=== PATIENT | male | born 1950 | race Caucasian/White ===

== ENCOUNTER 2019-06-30 11:00 | Outpatient (RCR) | payer MEDICARE, SELFPAY | END 2019-07-30 00:01 | LOC: CR 11:00 | PROVIDERS: Family Provider Family Medicine; Referring Provider Internal Medicine Cardiovascular Disease; Visit Provider Family Medicine | DX: Z98.890 Other specified postprocedural states (principal) | CPT/HCPCS: 93798 ×6 ==

== ENCOUNTER 2019-08-07 09:41 | Outpatient (RCR) | payer SELFPAY | END 2019-08-30 23:59 | disposition home or self-care (01) | LOC: CR 09:41 | PROVIDERS: Family Provider Family Medicine; PCP Family Medicine; Referring Provider Internal Medicine Cardiovascular Disease; Visit Provider Internal Medicine Cardiovascular Disease | DX: Z98.890 Other specified postprocedural states (principal) ==

== ENCOUNTER 2020-08-03 14:24 | Outpatient (CLI) | payer MEDICARE, SELFPAY ==
--- NOTE | 2020-08-03 14:33 | USCV_ITS ---
Kobe Gardner Age: 70 Gender: M : 1950 Exam Date: 08/03/2020 15:02 Ordering Phys: Marie Jacobs MD ([email or web address]) Technologist: Rosa Loyola Exam Location: [facility] [place] Indication: bruit Risk Factors: Previous Vascular Surgery: Right Brachial BP: / Left Brachial BP: / Right Left Velocity (cm/s) Spectral Plaque Velocity (cm/s) Spectral Plaque Syst/Diast Broadening Syst/Diast Broadening 94.80/ 11.00 Prox CCA 107.30/ 11.40 77.80/ 16.00 Mid CCA 93.70 / 13.20 68.10/ 16.70 Distal CCA 75.40 / 13.20 90.60/ 16.20 Prox ICA 62.60 / 11.90 90.20/ 20.60 None Mid ICA 90.90 / 21.60 58.70/ 15.80 None Distal ICA 61.80 / 16.40 124.60 ECA 181.80 0.96 ICA/CCA 0.85 Antegrade Vertebral Antegrade 36.60/ 10.10 cm/s 61.40/ 14.00 cm/s Tri Subclavian Tri 223.1 153.3 0 0 FINDINGS Mild to moderate heterogeneous plaques at the bifurcations and proximal no carotid arteries bilaterally Elevated velocity on the right side, suggestive of 16 to 49% gnosis Intimal thickening in the common carotid arteries bilaterally Antegrade flow in the vertebral arteries bilaterally Normal Doppler flow velocities in the external carotid arteries bilaterally CONCLUSIONS Mild to moderate heterogeneous plaques at the bifurcations and proximal internal carotid arteries bilaterally with velocity elevation, consistent with a 16 to 49% gnosis on the right side. Elevated velocity in the external carotid artery on the left side, suggestive of hemodynamically significant stenosis. No previous studies are available for comparison. Dr Marie Jacobs MD [facility] (Electronically Signed) Final Date: 05 August 2020 19:09 S
== END 2020-08-03 14:25 | disposition home or self-care (01) ==
LOC: RAD 14:29
PROVIDERS: PCP Family Medicine; Visit Provider Internal Medicine Cardiovascular Disease
DX: I65.23 Occlusion and stenosis of bilateral carotid arteries (principal)
CPT/HCPCS: 93880

== ENCOUNTER 2020-12-14 11:48 | Inpatient (IN) | payer MEDICARE, SELFPAY ==
[2020-12-14] VITALS (10 sets, daily range): BP systolic 117–158; BP diastolic 64–93; PULSE 61–107; RESP 16–18; TEMP 36.2–38.1; O2SAT 92–99; BMI 23.5
--- NOTE | 2020-12-14 12:13 | XRR_ITS ---
PROCEDURE INFORMATION: Exam: XR Chest Exam date and time: 12/14/2020 1:14 PM Age: 70 years old Clinical indication: Cough and dyspnea; Additional info: Dyspnea/cough TECHNIQUE: Imaging protocol: XR of the chest. Views: 1 view. COMPARISON: CR Chest 1 [place] [id number] 03/20/2019 3:59 PM FINDINGS: Lungs: There is mild fibrosis in the lung bases. There is no pneumonia. Pleural spaces: Unremarkable. No pleural effusion. No pneumothorax. Heart/Mediastinum: Unremarkable. No cardiomegaly. Bones/joints: The patient has undergone thoracic spinal fusion surgery with pedicle screws and rods. There is also a mid sternotomy from coronary bypass surgery. XR/XR chest 1V portable [id number] IMPRESSION: No acute abnormalities are seen in the chest.
--- NOTE | 2020-12-14 12:13 | ECG_ITS ---
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 Measurements Intervals Mize Rate: 89 P: 237 TX: 135 QRS: -1 QRSD: 90 T: 47 QT: 364 QTc: 443 Interpretive Statements ECTOPIC ATRIAL RHYTHM WITH OCCASIONAL SUPRAVENTRICULAR PREMATURE COMPLEXES MINIMAL ST DEPRESSION [0.025+ mV ST DEPRESSION] ABNORMAL RHYTHM ECG Compared to ECG 03/22/2019 05:29:49 Ectopic atrial rhythm now present ST (T wave) deviation now present Sinus bradycardia no longer present First degree AV block no longer present Myocardial infarct finding no longer present T-wave abnormality no longer present Possible ischemia no longer present Electronically Signed On 12-15-2020 0:44:20 CDT by Marie Jacobs M.D. [id number]
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
[2020-12-14 13:09] LABS: Basophils # 0.1 10^3/uL (0.0-0.1); Basophils % 0.3 %; Eosinophils # 0.1 10^3/uL (0.0-0.8); Eosinophils % 0.7 %; Hematocrit 41.8 % (42.0-52.0); Hemoglobin 12.7 g/dL (11.7-16.6); Lymphocytes # 2.3 10^3/uL (0.8-4.8); Lymphocytes % 15.8 %; Mean Corpuscular HGB Conc 30.4 g/dL (30.0-36.0); Mean Corpuscular Hemoglobin 24.4 pg (28.0-34.0); Mean Corpuscular Volume 80.2 fL (80-94); Mean Platelet Volume 9.5 fL (7.4-10.4); Monocytes # 0.7 10^3/uL (0.2-0.9); Monocytes % 5.2 %; Neutrophils # 11.09 10^3/uL (1.8-7.7); Neutrophils % 77.4 %; Nucleated Red Blood Cells % 0 %; Platelet Count 445 10^3/cmm (130-400); Red Blood Count 5.21 10^6/uL (4.1-5.3); Red Cell Distribution Width 14.8 % (12.1-15.1); White Blood Count 14.3 10^3/uL (4.0-10.0)
[2020-12-14] MEDS: vancomycin 1,000 MG in sodium chloride 0.9% 250 ML 250 MG IV (13:10)
[2020-12-14] MEDS: piperacillin-tazobactam 3.375 GM in sodium chloride 0.9% (plus) 50 ML IV ×2 (13:11→21:23)
[2020-12-14] MEDS: iohexol 300 mg/mL 100 mL Btl IV (13:23)
[2020-12-14 13:24] LABS: Lactic Sepsis W/Reflex 3.3 mmol/L (0.5-2.2)
[2020-12-14 13:25] LABS: Alanine Aminotransferase 10 U/L (0-41); Albumin Level 3.5 g/dL (3.5-5.2); Alkaline Phosphatase 91 IU/L (40-130); Anion Gap 16.8 (5-19); Aspartate Amino Transferase 14 U/L (0-40); Blood Urea Nitrogen 7 mg/dL (8-23); Calcium 9.3 mg/dL (8.5-10.5); Carbon Dioxide 29 mmol/L (22-29); Chloride 96 mmol/L (98-107); Creatine Phosphokinase 24 U/L (39-308); Globulin 3.7 g/dL (1.3-4.6); Glomerular Filtration Rate 213.3 mL/min (90-130); Glucose 234 mg/dL (65-115); Magnesium 2.1 mg/dL (1.7-2.3); Osmolality Calculated 290 mOsm/kg (285-295); Potassium 4.8 mmol/L (3.5-5.1); Sodium 137 mmol/L (136-145); Total Bilirubin 0.3 mg/dL (0.15-1.2); Total Protein 7.2 g/dL (6.6-8.7)
[2020-12-14 13:25] LABS: Add Urine Microscopic? YES; Bilirubin Urine Neg (Negative); Blood Urine 3+ (Negative); Glucose Urine UA 4+ (Normal); Ketones Urine Negative (Negative); Leukocyte Esterase Urine 2+ (Negative); Nitrate Urine Negative (Negative); Protein Urine Neg (Negative); Specific Gravity, Urine 1.015 (1.005-1.030); Urine Appearance Cloudy (CLEAR); Urine Color Yellow (Yellow); Urobilinogen Urine 1 mg/dL (Negative); pH Urine 7 (5-7)
[2020-12-14 13:26] LABS: RBC Urine 80-100 /hpf (0-2)
[2020-12-14 13:27] LABS: Amorphous Sediment Urine 1+ /hpf; Bacteria Urine 2+ /hpf; Calcium Oxalate Crystals Urine 0-4 /hpf; Mucus Urine TRACE /hpf; Squamous Epithelial Cell Urine 0-4 /hpf (0-5); WBC Urine 25-40 /hpf (0-5)
[2020-12-14 13:29] LABS: Add Urine Culture? Yes; Coarse Granular Casts Urine 0-4 /lpf
--- NOTE | 2020-12-14 13:36 | CT_ITS ---
WS: [id number] CT ABDOMEN AND PELVIS WITH CONTRAST HISTORY: Abdominal pain. Diabetic ulcer. TECHNIQUE: Imaging performed of the abdomen and pelvis with IV contrast. Single phase imaging of the abdomen. Coronal and sagittal reformats are submitted. All CT scans at [facility] use at least one of these dose optimization techniques: automated exposure control; mA and/or kV adjustment per patient size (includes targeted exams where dose is matched to clinical indication); or iterativ e reconstruction. IV CONTRAST: Omnipaque 300; 95 mL IV. Oral contrast: No DLP: 613.62 mGy-cm. COMPARISON: None available. Lower thorax: Subsegmental atelectasis at the RIGHT lung base. Heart is normal size. Moderate-sized h iatal hernia. Liver/biliary system: Normal size with no intrahepatic dilatation. Gallbladder: Normal. No gallstones or wall thickening. No pericholecystic fluid. Pancreas: Normal size pancreas and pancreatic duct. No adjacent inflammation. Spleen: Top normal size spleen measuring 12.8 cm in length. No mass. Adrenal glands: Normal. Right kidney: Normal size. Very small hypodensities are too small to characterize. No obstruction. Left kidney: No obstruction. Hypodensity in the lower poles probably a cyst. Aorta: Moderate atherosclerosis with no aneurysm. Lymphadenopathy: None. Free fluid: None. GI tract: Mild fecal retention and constipation. No obstruction or wall thickening. Abdominal wall: Intact containing umbilical hernia. Pelvis: Shine catheter in a nondistended urinary bladder. Minimal prominence of the prostate gland. T here is presacral soft tissue thickening which is probably contiguous with the diabetic soft tissue u lcer. There is an ulcer extending over a length of 6.1 cm over the posterior sacrum and coccyx. There is a large soft tissue defect extending towards the CT abdomen coccyx. Soft tissue ulcer abuts the s acrum and coccyx. There is no focal abscess or drainable collection. There is loss of the normal brian ex involving the sacrococcygeal junction. Highly suspicious for area of osteomyelitis. Fusion hardware is noted in the thoracic spine but incompletely visualized. CT/CT abdomen pelvis w con* [id number] IMPRESSION: 1. Large decubitus ulcer centered posterior to the distal sacrum (beginning at the fifth segment) and coccyx. Soft tissue ulceration extends to the distal sa lori and the adjacent coccyx with destruction of the cortex. Suspicious for ost eomyelitis and inflammatory changes extending into the presacral soft tissue. N o discrete abscess identified but these findings are consistent with osteomyeli tis due to the large decubitus ulcer and extension into the presacral space. 2. Shine catheter in a nondistended urinary bladder. 3. No renal obstruction.
[2020-12-14 14:52] LABS: Reflex Lactate Order REFLEX LACTIC ORDERD
[2020-12-14] MEDS: ondansetron 2 mg/ML SDV 2 mL 4 MG IVP (16:50)
[2020-12-14] MEDS: sodium chloride 0.9% 1,000 ML 100 ML IV (16:51)
[2020-12-14] MEDS: morphine 4 mg/mL SDV 1 mL 2 MG IVP (16:51)
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
[2020-12-14 17:25] LABS: Amphetamines Screen Urine Negative (Negative); Barbiturates Screen Urine Negative (Negative); Benzodiazepines Screen Urine Positive (Negative); Cocaine Screen Urine Negative (Negative); Opiate Screen Urine Negative (Negative); PCP Screen Urine Negative (Negative); THC Screen Urine Negative (Negative)
[2020-12-14 18:00] LABS: Potassium, Radom Urine 45 mmol/L; Urine Random Chloride 66 mmol/L; Urine Random Sodium 55 mmol/L
[2020-12-14 18:17] LABS: NT Pro B Type Natriuretic Pept 198 pg/mL (0-125); Procalcitonin 0.13 ng/mL (0-0.5); Thyroid Stimulating Hormone 0.87 uIU/mL (0.27-4.20)
[2020-12-14 18:28] LABS: Iron 18 ug/dL (59-158); Percent Saturation 9.2 % (20-50); Total Iron Binding Capacity 195 mcg/dl; Unsaturated Iron Binding 177 ug/dL (112-347)
[2020-12-14] MEDS: ALPRAZolam 0.25 mg Tablet PO (21:22)
[2020-12-14] MEDS: oxyCODONE-APAP 5-325 mg Tablet 1 TAB PO (21:22)
[2020-12-14] MEDS: heparin 5,000 unit/mL INJ 1 mL 5000 UNIT SUBCUT (21:22)
[2020-12-14] MEDS: gabapentin 300 mg Capsule PO (21:23)
[2020-12-14] MEDS: metoprolol tartrate 25 mg Tablet PO (21:23)
[2020-12-15] VITALS (19 sets, daily range): BP systolic 91–147; BP diastolic 49–75; PULSE 57–87; RESP 10–18; TEMP 36.3–37.3; O2SAT 92–96
[2020-12-15] MEDS: acetaminophen 325 mg Tablet 650 MG PO (00:22)
[2020-12-15] MEDS: vancomycin 1,000 MG in sodium chloride 0.9% 250 ML 250 MG IV ×3 (00:59→21:29)
[2020-12-15] MEDS: sodium chloride 0.9% 1,000 ML 100 ML IV ×2 (03:35→15:15)
[2020-12-15] MEDS: piperacillin-tazobactam 3.375 GM in sodium chloride 0.9% (plus) 50 ML IV ×3 (05:34→23:37)
[2020-12-15] MEDS: heparin 5,000 unit/mL INJ 1 mL 5000 UNIT SUBCUT ×2 (05:34→20:22)
[2020-12-15 05:41] LABS: Basophils # 0.1 10^3/uL (0.0-0.1); Basophils % 0.5 %; Eosinophils # 0.2 10^3/uL (0.0-0.8); Eosinophils % 2.4 %; Hematocrit 34.9 % (42.0-52.0); Hemoglobin 10.7 g/dL (11.7-16.6); Lymphocytes # 2.6 10^3/uL (0.8-4.8); Lymphocytes % 25.4 %; Mean Corpuscular HGB Conc 30.7 g/dL (30.0-36.0); Mean Corpuscular Hemoglobin 24.5 pg (28.0-34.0); Mean Corpuscular Volume 79.9 fL (80-94); Mean Platelet Volume 9.2 fL (7.4-10.4); Monocytes # 0.7 10^3/uL (0.2-0.9); Monocytes % 6.5 %; Neutrophils # 6.52 10^3/uL (1.8-7.7); Neutrophils % 64.7 %; Nucleated Red Blood Cells % 0 %; Platelet Count 369 10^3/cmm (130-400); Red Blood Count 4.37 10^6/uL (4.1-5.3); Red Cell Distribution Width 14.8 % (12.1-15.1); White Blood Count 10.1 10^3/uL (4.0-10.0)
[2020-12-15 05:49] LABS: Estmated Average Glucose 194; Hemoglobin A1C 8.4 % (4.0-6.0)
[2020-12-15 05:58] LABS: C Reactive Protein 133.3 mg/L (0.0-4.9); Chol HDL Ratio 6.42 mg/dL (1.0-5.00); Cholesterol 154 mg/dL (0-200); Creatine Phosphokinase 12 U/L (39-308); Ferritin 266 ng/mL (30-400); HDL Cholesterol 24 mg/dL (60-100); LDL Cholesterol Calculated 97 mg/dL (50-129); Triglycerides 166 mg/dL (0-150); VLDL Cholestrol Calculation 33 mg/dL (0-30)
[2020-12-15 06:00] LABS: Alanine Aminotransferase 9 U/L (0-41); Albumin Level 2.7 g/dL (3.5-5.2); Alkaline Phosphatase 76 IU/L (40-130); Aspartate Amino Transferase 10 U/L (0-40); Blood Urea Nitrogen 5 mg/dL (8-23); Calcium 8.9 mg/dL (8.5-10.5); Carbon Dioxide 31 mmol/L (22-29); Chloride 100 mmol/L (98-107); Globulin 3.4 g/dL (1.3-4.6); Glomerular Filtration Rate 213.3 mL/min (90-130); Glucose 152 mg/dL (65-115); Osmolality Calculated 288 mOsm/kg (285-295); Sodium 139 mmol/L (136-145); Total Bilirubin 0.3 mg/dL (0.15-1.2); Total Protein 6.1 g/dL (6.6-8.7)
[2020-12-15 06:01] LABS: Magnesium 1.7 mg/dL (1.7-2.3); Phosphorus 4.4 mg/dL (2.5-4.5)
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
[2020-12-15] MEDS: gabapentin 300 mg Capsule PO ×2 (08:59→21:29)
[2020-12-15] MEDS: ALPRAZolam 0.25 mg Tablet PO ×2 (08:59→21:29)
[2020-12-15] MEDS: metoprolol tartrate 25 mg Tablet PO ×2 (08:59→21:29)
--- NOTE | 2020-12-15 09:44 | PC.CHAP ---
Pastoral Care Encounter/Spiritual Assessment Type of Contact [] Declined yarn examiner skeins visit [] Patient/Family/Request visit [] Outpatient visit [] Follow-up visit [] Physician referral [] Code/Alert [x] Routine visit [] Staff referral [] Actively dying [] Patient sleeping [] Family support [] [] Out of room [] Palliative care [] [x] Receiving care in room [] Pre-surgical visit [] Trauma [] Long length of stay [] ICU visit [] Other: Relational/Emotional Strength [] Patient feels connected with others/family/visitors/staff [] Distress [] Loneliness/isolation [] Abandonment Spirituality of Patient [] Person of Rosalinda [] Attends Tenriism of their Rosalinda [] Believes in Prayer [] Reads Bible or Episcopal materials [] There are Spiritual issues to be addressed Trip Motor Operator Interventions [] Prayer [] Active listening [] Non-anxious presence [] Spiritual/emotional support [] Crisis/trauma care [] Spiritual counseling [] Bereavement support [] Provided bereavement packet [] Provided Bible/devotional materials [] Provided toy/stuffed animal, coloring book to patient or family member [] Provided Communion [] Anointing/[place] [] Salvation [x] Completed spiritual assessment [] Other: Impact on Illness or Injury [] Angry [] Fearful [] Anxious [] Often cries [] Exhaustion [] Unable to work [] Unable to attend rastafarian [] Unable to walk/stand [] Unable to read [] Unable to drive [] Unable to eat/drink [] Unable to sleep [] Unable to be with family [] Patient intubated [] Other: Summary Time spent with patient
--- NOTE | 2020-12-15 10:26 | PC.NURSE ---
Shift Assessment Assessment done per SPN student. B.Gerry RN
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
[2020-12-15 11:21] LABS: Reticulocyte % 0.8 % (0.5-2.0)
--- NOTE | 2020-12-15 11:25 | PC.RESP ---
pt not in room at this time to perform Assess and treat
--- NOTE | 2020-12-15 11:42 | PM.OP ---
Operative Report Date of procedure: December 15, 2020 Pre-op Diagnosis: Stage IV sacral decubitus ulcer with necrosis/radiologic evidence of possib Post-op diagnosis: same Procedure Done: 1. Sharp debridement of 7.5 x 6.5 cm decubitus ulcer. 2. Sacral/coccyx bone biopsy for culture. Specimens removed/disposition: 1. Aerobic and anaerobic soft tissue wound cultures from sacral decubitus. 2. Sacral bone culture. Surgeon: Moises Javed Anesthesia: MAC Estimated blood loss (mL): 5 Complications: None. Condition: stable Disposition: PACU Procedure: The patient was brought to the operating room and was moved into a left lateral decubitus position onto the operating room table. A monitored anesthetic was induced. The sacral region was prepped and draped in sterile fashion. A combination of 1% lidocaine with 1 100,000 parts epinephrine and 0.5% bupivacaine was used for local anesthesia throughout the procedure. The patient had a sacral decubitus wound measuring 6.5 x 7.5 cm over the sacrum/coccyx. There was some early eschar and necrotic material throughout the wound. The surrounding tissue/skin was somewhat excoriated but clearly viable. Aerobic and anaerobic soft tissue wound cultures were taken. All of the eschar and necrotic material from the wound base was excised using a combination of sharp dissection and cautery. The wound had extended all the way down to the sacrum/coccyx where some of the bone appeared to be a little bit dark at the junction. There was a loose chip of bone in the region was was simply removed with a pair of pickups/rongeurs and was sent for bone culture. The wound was extensively irrigated using the Interpulse irrigation system. Silvadene cream was then introduced into the base of the wound and a dressing consisting of Kerlix was then applied covered by a nonstick disposable undergarment. The patient was taken to the recovery area in stable condition postoperatively.
[2020-12-15] MEDS: silver sulfadiazine cream 1% 50 gm 1 APPLIC TOPICAL (12:02)
--- NOTE | 2020-12-15 12:20 | SUR.PHASEI ---
1204 PATIENT TO MED SURG. NO DISTRESS. DENIES PAIN. DRESSING INTACT TO COCCYX. PATIENT TOLERATING ICE CHIPS.
[2020-12-15] MEDS: pantoprazole DR 40 mg Tablet PO (12:31)
[2020-12-15] MEDS: clopidogrel 75 mg Tablet PO (12:31)
[2020-12-15] MEDS: iron sucrose 200 MG in sodium chloride 0.9% (100 ml) 100 ML 220 MG IV (12:31)
[2020-12-15] MEDS: polyethylene glycol 3350 Pkt 17 gm PO (12:31)
[2020-12-15] MEDS: iron polysaccharide complex 150 mg Capsule PO (12:31)
[2020-12-15 13:09] LABS: Lactic Acid level (Lactate) 1.3 mmol/L (0.5-2.2)
--- NOTE | 2020-12-15 13:15 | ANE.PACU2 ---
Inpatient post-anesthesia follow up: Airway intact: Yes Vital signs: Temperature 97.6 F Pulse Rate [Monito r] 96 Pulse Rate 64 Respiratory Rate 17 Blood Pressure [Ri ght Arm] 146/85 Blood Pressure 113/65 Pulse Oximetry 92 Oxygen Delivery Me thod Room Air Oxygen Flow Rate Fraction of Inspir ed Oxygen Hydration adequate: Yes Nausea and vomiting: No Pain level: 1 Mental status: Baseline
[2020-12-15 13:30] LABS: Vancomycin Trough 7.2 ug/mL (10-15)
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
--- NOTE | 2020-12-15 16:48 | USCV_ITS ---
Kobe Gardner Age: 70 Gender: M : 1950 Exam Date: 12/15/2020 06:04 Ordering Phys: Martin Mccurdy MD Technologist: MONY Exam Location: [facility] [place] Indication: CAD MR BP: 130 / 60 HR: 77 Rhythm: Sinus Technical Quality: Good MEASUREMENTS (Male / Female) Normal Values 2D ECHO LV Diastolic Diameter PLAX 2.5 cm 4.2 - 5.9 / 3.9 - 5.3 cm LV Systolic Diameter PLAX 1.5 cm IVS Diastolic Thickness 1.8 cm 0.6 - 1.0 / 0.6 - 0.9 cm IVS Systolic Thickness 2.1 cm LVPW Diastolic Thickness 2.1 cm 0.6 - 1.0 / 0.6 - 0.9 cm LVPW Systolic Thickness 1.9 cm RV Chamber Size 3.1 cm LVOT Diameter 2.0 cm LV Ejection Fraction 2D Teich 70.8 % LV Ejection Fraction MOD 2C 72.6 % LV Ejection Fraction 2C AL 72.4 % LA Diameter 3.7 cm LA Width 3.2 cm LA Height 5.1 cm RA Width 3.3 cm RA Height 4.9 cm Aorta at Sinotubular Diameter 2.5 cm M-MODE LV Diastolic Diameter MM 5.3 cm 4.2 - 5.9 / 3.9 - 5.3 cm LV Systolic Diameter MM 1.9 cm LV Ejection Fraction MM Teich 91.5 % IVS Diastolic Thickness MM 1.1 cm 0.6 - 1.0 / 0.6 - 0.9 cm IVS Systolic Thickness MM 1.5 cm LVPW Diastolic Thickness MM 0.9 cm 0.6 - 1.0 / 0.6 - 0.9 cm LVPW Systolic Thickness MM 1.1 cm Aortic Annulus Diameter 3.0 cm LA Ao Ratio MM 1.1 MV E Point Septal Separation 0.3 cm DOPPLER AV Peak Velocity 165.0 cm/s LVOT Peak Velocity 104.0 cm/s AV Area Cont Eq vti 2.0 cm squared AV Area Cont Eq pk 2.0 cm squared MV Area PHT 3.7 cm squared Mitral E to A Ratio 0.8 MV E' Velocity 57.5 cm/s Mitral E to MV E' Ratio 12.1 Mitral E to LV E' Lateral Ratio 12.2 Mitral E to LV E' Septal Ratio 12.1 TR Peak Velocity 280.3 cm/s TR Peak Gradient 31.4 mmHg TV Peak E Velocity 71.0 cm/s Right Atrial Pressure 3.0 mmHg Pulmonary Artery Systolic Pressu 34.4 mmHg PV Peak Velocity 128.3 cm/s RV Acceleration Time 0.1 s RV Ejection Time 0.3 s RV AcT/ET 0.3 FINDINGS Left Ventricle Normal left ventricular size and systolic function, EF 71 %. Mild left ventricular hypertrophy. No regional wall motion abnormalities. Grade I/IV diastolic dysfunction (abnormal relaxation filling pattern), normal to mildly elevated filling pressures. Right Ventricle The right ventricle is normal in size and function. Right Atrium The right atrium is normal in size. Left Atrium Mildly increased left atrial size. Mitral Valve Thickened mitral valve. Mild mitral valve regurgitation. Aortic Valve Trace aortic valve regurgitation. Tricuspid Valve Trace tricuspid valve regurgitation. Pulmonic Valve Mild pulmonary valve regurgitation. Pericardium Normal pericardium without effusion. Aorta Plaque seen in the ascending aorta. CONCLUSIONS Normal left ventricular size and systolic function, EF 71 %. Mild left ventricular hypertrophy. No regional wall motion abnormalities. Grade I/IV diastolic dysfunction (abnormal relaxation filling pattern), normal to mildly elevated filling pressures. Mildly increased left atrial size. Thickened mitral valve. Mild mitral valve regurgitation. Trace aortic valve regurgitation. Trace tricuspid valve regurgitation. Mild pulmonary valve regurgitation. Estimated pulmonary artery peak systolic pressure 34 mmHg There is no pericardial effusion. There are no intracardiac masses. Dr Maire Jacobs MD FAC (Electronically Signed) Final Date: 16 Dec 2020 00:21 S
[2020-12-15 18:00] LABS: Glucose Point of Care 208 mg/dL (70-110)
[2020-12-15] MEDS: oxyCODONE-APAP 5-325 mg Tablet 1 TAB PO (18:04)
[2020-12-15 20:25] LABS: Glucose Point of Care 246 mg/dL (70-110)
[2020-12-16] VITALS (8 sets, daily range): BP systolic 107–134; BP diastolic 50–66; PULSE 60–92; RESP 16–20; TEMP 36.6–38; O2SAT 90–97
[2020-12-16] MEDS: heparin 5,000 unit/mL INJ 1 mL 5000 UNIT SUBCUT ×3 (03:47→19:49)
[2020-12-16] MEDS: sodium chloride 0.9% 1,000 ML 100 ML IV (03:47)
[2020-12-16] MEDS: vancomycin 1,000 MG in sodium chloride 0.9% 250 ML 250 MG IV ×3 (05:10→20:49)
[2020-12-16] MEDS: oxyCODONE-APAP 5-325 mg Tablet 1 TAB PO ×2 (06:24→20:45)
[2020-12-16] MEDS: piperacillin-tazobactam 3.375 GM in sodium chloride 0.9% (plus) 50 ML IV ×3 (06:25→22:44)
[2020-12-16 06:45] LABS: Glucose Point of Care 159 mg/dL (70-110)
[2020-12-16 07:34] LABS: Basophils % 0.4 %; Eosinophils # 0.2 10^3/uL (0.0-0.8); Eosinophils % 2.4 %; Hemoglobin 10.6 g/dL (11.7-16.6); Lymphocytes # 2.1 10^3/uL (0.8-4.8); Lymphocytes % 20.3 %; Mean Corpuscular HGB Conc 30.3 g/dL (30.0-36.0); Mean Corpuscular Hemoglobin 24.7 pg (28.0-34.0); Mean Corpuscular Volume 81.4 fL (80-94); Mean Platelet Volume 9.4 fL (7.4-10.4); Monocytes # 0.7 10^3/uL (0.2-0.9); Monocytes % 6.6 %; Neutrophils # 7.04 10^3/uL (1.8-7.7); Neutrophils % 69.8 %; Nucleated Red Blood Cells % 0 %; Platelet Count 321 10^3/cmm (130-400); Red Cell Distribution Width 15.1 % (12.1-15.1); White Blood Count 10.1 10^3/uL (4.0-10.0)
[2020-12-16 07:53] LABS: Alanine Aminotransferase 10 U/L (0-41); Albumin Level 2.5 g/dL (3.5-5.2); Alkaline Phosphatase 77 IU/L (40-130); Anion Gap 11.8 (5-19); Aspartate Amino Transferase 16 U/L (0-40); Blood Urea Nitrogen 4 mg/dL (8-23); Calcium 8.4 mg/dL (8.5-10.5); Carbon Dioxide 28 mmol/L (22-29); Chloride 100 mmol/L (98-107); Globulin 3.5 g/dL (1.3-4.6); Glomerular Filtration Rate 213.3 mL/min (90-130); Glucose 208 mg/dL (65-115); Osmolality Calculated 285 mOsm/kg (285-295); Potassium 3.8 mmol/L (3.5-5.1); Sodium 136 mmol/L (136-145); Total Bilirubin 0.3 mg/dL (0.15-1.2)
[2020-12-16] MEDS: iron polysaccharide complex 150 mg Capsule PO (08:30)
[2020-12-16] MEDS: ALPRAZolam 0.25 mg Tablet PO ×2 (08:30→20:44)
[2020-12-16] MEDS: polyethylene glycol 3350 Pkt 17 gm PO (08:30)
[2020-12-16] MEDS: clopidogrel 75 mg Tablet PO (08:30)
[2020-12-16] MEDS: metoprolol tartrate 25 mg Tablet PO ×2 (08:30→20:44)
[2020-12-16] MEDS: gabapentin 300 mg Capsule PO ×3 (08:30→20:44)
[2020-12-16] MEDS: pantoprazole DR 40 mg Tablet PO (08:31)
--- NOTE | 2020-12-16 08:36 | P.PN_ITS ---
Subjective Subjective: Interval history: The patient seems to be in better spirits this morning. He says he feels well. He only has a little bit of pain at the sacral area every once in a while. Vitals/I&O/Wt Last Vital Signs Temp 98.3 F 12/16/20 08:00 Pulse 64 12/16/20 08:00 Resp 18 12/16/20 08:00 BP 115/50 12/16/20 08:00 Pulse Ox 94 12/16/20 08:00 12/15/20 12/16/20 12/16/20 22:59 06:59 14:59 Intake Total 870 / 3440 1300 / 3440 Output Total 1000 / 2375 1375 / 2375 Balance -130 / 1065 -75 / 1065 Weight last 48 hrs Weight 157 lb 14.4 oz Weight 160 lb Weight 150 lb Physical Exam Narrative: EXAM NARRATIVE: Dressing was just recently changed by nursing; we discussed findings. The wound has been draining some serous fluid. Urinary Catheter Management^: Shine: Cath Placed During This Visit: yes Reason for Continuing Indwelling Catheter: Accurate Measurement of Urinary Output in Critically Ill Patients Urinary Catheter Date of Insertion: 12/14/20 Urinary Catheter Time of Insertion: 13:04 Data : 12/16/20 07:22 12/16/20 07:22 Micro: Microbiology 12/14/20 16:20 Blood Culture - Preliminary Blood 12/15/20 12:52 Gram Stain - Final Other Source 12/15/20 11:30 Gram Stain - Final Other Source 12/14/20 19:13 MRSA Culture - Final Nose 12/14/20 12:45 Blood Culture - Preliminary Blood NEGATIVE TO DATE 12/14/20 13:00 Urine Culture - Preliminary Urine Catheterized Staphylococcus aureus As of 12/16/2020: Blood cultures seem to show a combination of probable Staphylococcus and Streptococcus. Tissue culture Gram stain show gram-negative rods and probable Streptococcus. Bone culture Gram stain shows probable Streptococcus. A&P Assessment and plan (1) Decubitus ulcer of back, stage 4: Status post surgical debridement tissue and bone cultures on 12/15/2020. Continue daily wound care. If the patient cannot get adequate home health arranged (he says he has had only one visit from [facility] since leaving [facility] ago), then I would recommend he follow-up with the [facility] wound clinic for further care. Status: Acute (2) Osteomyelitis: Radiographic evidence of osteomyelitis. Bone culture results as above. Status: Acute Attestations Medical Necessity Statement*: See admitting service's notation. Coding Level of Care Code Acute Gis Software Developer for Michaela Bradshaw Diagnoses Decubitus ulcer of back, stage 4 L89.104 Osteomyelitis M86.9
--- NOTE | 2020-12-16 12:04 | PC.NURSE ---
BM Manually stimulated with a small BM as charted
[2020-12-16 12:05] LABS: Glucose Point of Care 277 mg/dL (70-110)
--- NOTE | 2020-12-16 12:06 | PC.NURSE ---
Lamine lift Patient up in lamine lift to [facility] [place] for BM (assistance of 4 people) Patient tolerated well Patient back to per lamine lift and resting comfortably with 2 side rails up and call light in reach
[2020-12-16] MEDS: silver sulfadiazine cream 1% 50 gm 1 APPLIC TOPICAL (12:32)
[2020-12-16] MEDS: iron sucrose 200 MG in sodium chloride 0.9% (100 ml) 100 ML 220 MG IV (12:33)
[2020-12-16 12:47] LABS: Vancomycin Trough 10.3 ug/mL (10-15)
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
[2020-12-16 16:40] LABS: Glucose Point of Care 184 mg/dL (70-110)
[2020-12-16 21:41] LABS: Glucose Point of Care 247 mg/dL (70-110)
[2020-12-17] VITALS (13 sets, daily range): BP systolic 115–169; BP diastolic 55–80; PULSE 65–84; RESP 12–20; TEMP 36.7–37.2; O2SAT 92–98
[2020-12-17] MEDS: heparin 5,000 unit/mL INJ 1 mL 5000 UNIT SUBCUT ×3 (04:44→20:23)
[2020-12-17] MEDS: vancomycin 1,000 MG in sodium chloride 0.9% 250 ML 250 MG IV ×3 (04:48→20:23)
[2020-12-17 05:45] LABS: Vancomycin Trough 21.1 ug/mL (10-15)
[2020-12-17 06:41] LABS: Glucose Point of Care 159 mg/dL (70-110)
[2020-12-17] MEDS: piperacillin-tazobactam 3.375 GM in sodium chloride 0.9% (plus) 50 ML IV ×3 (07:42→23:25)
[2020-12-17] MEDS: polyethylene glycol 3350 Pkt 17 gm PO (09:21)
[2020-12-17] MEDS: silver sulfadiazine cream 1% 50 gm 1 APPLIC TOPICAL (09:21)
[2020-12-17] MEDS: clopidogrel 75 mg Tablet PO (09:22)
[2020-12-17] MEDS: iron polysaccharide complex 150 mg Capsule PO (09:22)
[2020-12-17] MEDS: metoprolol tartrate 25 mg Tablet PO ×2 (09:22→20:22)
[2020-12-17] MEDS: pantoprazole DR 40 mg Tablet PO (09:22)
[2020-12-17] MEDS: gabapentin 300 mg Capsule PO ×3 (09:22→20:22)
[2020-12-17] MEDS: ALPRAZolam 0.25 mg Tablet PO ×2 (09:22→20:23)
--- NOTE | 2020-12-17 10:10 | PC.SOCIAL ---
Pg 2 IMM. Explained to pt Pg 2 IMM. No questions voiced. Provided pt a copy. Signed, dated, & timed a copy & placed in chart.
--- NOTE | 2020-12-17 11:08 | PC.PHAR ---
Vancomycin trough 12/17 not true value lab drawn shortly after administration so value is most likely inflated. infusion was stopped but resumed ~0600 12/17. redraw level before next dose if administered.
[2020-12-17 11:42] LABS: Glucose Point of Care 324 mg/dL (70-110)
[2020-12-17] MEDS: oxyCODONE-APAP 5-325 mg Tablet 1 TAB PO ×2 (11:56→20:22)
[2020-12-17] MEDS: iron sucrose 200 MG in sodium chloride 0.9% (100 ml) 100 ML 220 MG IV (14:13)
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
[2020-12-17 17:20] LABS: Glucose Point of Care 227 mg/dL (70-110)
[2020-12-17 20:42] LABS: Glucose Point of Care 257 mg/dL (70-110)
[2020-12-17] MEDS: insulin glargine 100 units/1 mL 10 UNIT SUBCUT (20:57)
[2020-12-17 21:49] LABS: Vancomycin Trough 39.9 ug/mL (10-15)
--- NOTE | 2020-12-17 22:52 | PC.PHAR ---
Vancomycin trough was drawn on 12/17/20 @2100, Vancomycin was infusing at 2022. Resulted in a critical trough of 39.9. Talked to Breana and she will make sure labs draws at 0400 and not hang dose 0500 until it has come back.
[2020-12-18] VITALS (7 sets, daily range): BP systolic 119–168; BP diastolic 57–77; PULSE 59–91; RESP 16–19; TEMP 36.1–37; O2SAT 92–98
[2020-12-18 04:56] LABS: Basophils % 0.4 %; Eosinophils # 0.3 10^3/uL (0.0-0.8); Eosinophils % 3.7 %; Hematocrit 35.2 % (42.0-52.0); Hemoglobin 10.5 g/dL (11.7-16.6); Lymphocytes # 2.2 10^3/uL (0.8-4.8); Lymphocytes % 25.9 %; Mean Corpuscular HGB Conc 29.8 g/dL (30.0-36.0); Mean Corpuscular Hemoglobin 23.9 pg (28.0-34.0); Mean Platelet Volume 9.7 fL (7.4-10.4); Monocytes # 0.6 10^3/uL (0.2-0.9); Monocytes % 6.5 %; Neutrophils # 5.31 10^3/uL (1.8-7.7); Neutrophils % 62.9 %; Nucleated Red Blood Cells % 0 %; Platelet Count 351 10^3/cmm (130-400); Red Cell Distribution Width 14.9 % (12.1-15.1); White Blood Count 8.4 10^3/uL (4.0-10.0)
[2020-12-18] MEDS: heparin 5,000 unit/mL INJ 1 mL 5000 UNIT SUBCUT ×3 (04:57→20:13)
[2020-12-18 05:12] LABS: Alanine Aminotransferase 12 U/L (0-41); Albumin Level 2.6 g/dL (3.5-5.2); Alkaline Phosphatase 76 IU/L (40-130); Anion Gap 12.4 (5-19); Aspartate Amino Transferase 15 U/L (0-40); Blood Urea Nitrogen 5 mg/dL (8-23); Calcium 8.9 mg/dL (8.5-10.5); Carbon Dioxide 28 mmol/L (22-29); Chloride 103 mmol/L (98-107); Globulin 3.5 g/dL (1.3-4.6); Glomerular Filtration Rate 213.3 mL/min (90-130); Glucose 127 mg/dL (65-115); Osmolality Calculated 287 mOsm/kg (285-295); Potassium 4.4 mmol/L (3.5-5.1); Sodium 139 mmol/L (136-145); Total Bilirubin 0.2 mg/dL (0.15-1.2); Total Protein 6.1 g/dL (6.6-8.7)
[2020-12-18 05:34] LABS: Vancomycin Trough 15.3 ug/mL (10-15)
[2020-12-18] MEDS: vancomycin 1,000 MG in sodium chloride 0.9% 250 ML 250 MG IV ×2 (05:44→13:24)
[2020-12-18 06:25] LABS: Glucose Point of Care 145 mg/dL (70-110)
[2020-12-18] MEDS: piperacillin-tazobactam 3.375 GM in sodium chloride 0.9% (plus) 50 ML IV ×3 (08:05→22:56)
[2020-12-18] MEDS: polyethylene glycol 3350 Pkt 17 gm PO (08:12)
[2020-12-18] MEDS: clopidogrel 75 mg Tablet PO (08:12)
[2020-12-18] MEDS: pantoprazole DR 40 mg Tablet PO (08:12)
[2020-12-18] MEDS: gabapentin 300 mg Capsule PO ×3 (08:12→20:13)
[2020-12-18] MEDS: ALPRAZolam 0.25 mg Tablet PO ×2 (08:12→20:13)
[2020-12-18] MEDS: iron polysaccharide complex 150 mg Capsule PO (08:13)
[2020-12-18] MEDS: metoprolol tartrate 25 mg Tablet PO ×2 (08:17→20:13)
[2020-12-18] MEDS: amlodipine 10 mg Tablet PO (08:17)
[2020-12-18] MEDS: oxyCODONE-APAP 5-325 mg Tablet 1 TAB PO ×2 (08:19→18:21)
[2020-12-18] MEDS: silver sulfadiazine cream 1% 50 gm 1 APPLIC TOPICAL (11:56)
[2020-12-18 12:18] LABS: Glucose Point of Care 214 mg/dL (70-110)
--- NOTE | 2020-12-18 12:37 | PC.CHAP ---
Pastoral Care Encounter/Spiritual Assessment Type of Contact [] Declined clubhouse attendant visit [] Patient/Family/Request visit [] Outpatient visit [] Follow-up visit [] Physician referral [] Code/Alert [] Routine visit [] Staff referral [] Actively dying [] Patient sleeping [] Family support [] [] Out of room [] Palliative care [] [xxx] Receiving care in room [] Pre-surgical visit [] Trauma [] Long length of stay [] ICU visit [] Other: Relational/Emotional Strength [] Patient feels connected with others/family/visitors/staff [] Distress [] Loneliness/isolation [] Abandonment Spirituality of Patient [] Person of Rosalinda [] Attends Congregational of their Rosalinda [] Believes in Prayer [] Reads Bible or Synagogue materials [] There are Spiritual issues to be addressed Wool Puller Interventions [] Prayer [] Active listening [] Non-anxious presence [] Spiritual/emotional support [] Crisis/trauma care [] Spiritual counseling [] Bereavement support [] Provided bereavement packet [] Provided Bible/devotional materials [] Provided toy/stuffed animal, coloring book to patient or family member [] Provided Communion [] Anointing/[place] [] Salvation [] Completed spiritual assessment [] Other: Impact on Illness or Injury [] Angry [] Fearful [] Anxious [] Often cries [] Exhaustion [] Unable to work [] Unable to attend temple [] Unable to walk/stand [] Unable to read [] Unable to drive [] Unable to eat/drink [] Unable to sleep [] Unable to be with family [] Patient intubated [] Other: Summary Follow up needed Med staff busy with patient and will be for lengthy time. Time spent with patient
[2020-12-18] MEDS: iron sucrose 200 MG in sodium chloride 0.9% (100 ml) 100 ML 220 MG IV (12:44)
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
--- NOTE | 2020-12-18 15:03 | XR_ITS ---
WS: [id number] Portable AP supine chest, 12/18/2020 Clinical Data: picc line placement Comparison: Portable chest, 12/14/2020. Findings: The right PICC line ends in the superior vena cava near the cavoatrial junction. No pneumot horax is seen. There is minimal left basilar atelectasis. XR/XR chest 1V portable [id number] Impression: Satisfactory insertion of right PICC line.
[2020-12-18 17:41] LABS: Glucose Point of Care 247 mg/dL (70-110)
[2020-12-18 20:54] LABS: Glucose Point of Care 258 mg/dL (70-110)
[2020-12-18] MEDS: insulin glargine 100 units/1 mL 10 UNIT SUBCUT (21:41)
[2020-12-19] VITALS (10 sets, daily range): BP systolic 118–162; BP diastolic 62–76; PULSE 72–103; RESP 16–20; TEMP 36.4–39.4; O2SAT 92–97
[2020-12-19] MEDS: heparin 5,000 unit/mL INJ 1 mL 5000 UNIT SUBCUT ×3 (03:42→20:36)
[2020-12-19] MEDS: acetaminophen 325 mg Tablet 650 MG PO (04:13)
--- NOTE | 2020-12-19 04:15 | PC.NURSE ---
fever STONE DERRICKMAN AND RIGGER reported to this nurse temp was 103.0, tylenol given, will recheck
--- NOTE | 2020-12-19 04:47 | PC.NURSE ---
shift summary Patient had good night, no complaints of pain, slept through the night. Patient did have a temp of 103.0 at 4:00, tyelnol given. Will recheck in one hour.
--- NOTE | 2020-12-19 05:33 | PC.NURSE ---
Temp. rechecked Temp was 103.0 it is now 99.5
[2020-12-19] MEDS: piperacillin-tazobactam 3.375 GM in sodium chloride 0.9% (plus) 50 ML IV ×3 (06:19→23:23)
[2020-12-19 06:22] LABS: Glucose Point of Care 235 mg/dL (70-110)
[2020-12-19] MEDS: iron polysaccharide complex 150 mg Capsule PO (08:33)
[2020-12-19] MEDS: metoprolol tartrate 25 mg Tablet PO ×2 (08:33→20:36)
[2020-12-19] MEDS: amlodipine 10 mg Tablet PO (08:35)
[2020-12-19] MEDS: ALPRAZolam 0.25 mg Tablet PO ×2 (08:35→20:36)
[2020-12-19] MEDS: gabapentin 300 mg Capsule PO ×3 (08:35→20:36)
[2020-12-19] MEDS: pantoprazole DR 40 mg Tablet PO (08:35)
[2020-12-19] MEDS: clopidogrel 75 mg Tablet PO (08:35)
[2020-12-19] MEDS: polyethylene glycol 3350 Pkt 17 gm PO (08:36)
[2020-12-19 08:55] LABS: Basophils % 0.2 %; Eosinophils # 0.1 10^3/uL (0.0-0.8); Eosinophils % 0.5 %; Hematocrit 36.2 % (42.0-52.0); Hemoglobin 11.2 g/dL (11.7-16.6); Lymphocytes % 11.8 %; Mean Corpuscular HGB Conc 30.9 g/dL (30.0-36.0); Mean Corpuscular Hemoglobin 24.7 pg (28.0-34.0); Mean Corpuscular Volume 79.7 fL (80-94); Mean Platelet Volume 9.4 fL (7.4-10.4); Monocytes % 6.1 %; Neutrophils # 13.33 10^3/uL (1.8-7.7); Neutrophils % 80.6 %; Nucleated Red Blood Cells % 0 %; Platelet Count 426 10^3/cmm (130-400); Red Blood Count 4.54 10^6/uL (4.1-5.3); Red Cell Distribution Width 15.6 % (12.1-15.1); White Blood Count 16.5 10^3/uL (4.0-10.0)
[2020-12-19 09:14] LABS: Alanine Aminotransferase 14 U/L (0-41); Alkaline Phosphatase 88 IU/L (40-130); Anion Gap 17.6 (5-19); Aspartate Amino Transferase 16 U/L (0-40); Blood Urea Nitrogen 15 mg/dL (8-23); Calcium 9.4 mg/dL (8.5-10.5); Carbon Dioxide 24 mmol/L (22-29); Chloride 97 mmol/L (98-107); Globulin 3.2 g/dL (1.3-4.6); Glucose 223 mg/dL (65-115); Osmolality Calculated 286 mOsm/kg (285-295); Potassium 4.6 mmol/L (3.5-5.1); Sodium 134 mmol/L (136-145); Total Bilirubin 0.3 mg/dL (0.15-1.2); Total Protein 6.2 g/dL (6.6-8.7)
[2020-12-19 09:19] LABS: Procalcitonin 0.66 ng/mL (0-0.5)
--- NOTE | 2020-12-19 09:26 | PC.SOCIAL ---
IMM Updated. Updated pt on Pg 2 IMM. No questions voiced. Provided pt a copy. Signed, dated, & timed copy in chart.
[2020-12-19] MEDS: Fleet Enema 133 mL Enema PR (11:04)
[2020-12-19] MEDS: silver sulfadiazine cream 1% 50 gm 1 APPLIC TOPICAL (11:10)
--- NOTE | 2020-12-19 11:41 | XRR_ITS ---
PROCEDURE INFORMATION: Exam: XR Chest Exam date and time: 12/19/2020 11:41 AM Age: 70 years old Clinical indication: Fever TECHNIQUE: Imaging protocol: XR of the chest. Views: 1 view. COMPARISON: MT XR chest 1V portable [id number] 12/18/2020 3:14 PM FINDINGS: Tubes, catheters and devices: PICC line from the right. Tip extend centrally although not visualized secondary to the Valadez tuan and pedicle screws. Lungs: Mild airspace disease within the left lung base. Pleural spaces: Unremarkable. No pleural effusion. No pneumothorax. Heart/Mediastinum: Unremarkable. No cardiomegaly. Bones/joints: prior sternotomy. XR/XR chest 1V portable [id number] IMPRESSION: Mild airspace disease within the left lung base.
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
[2020-12-19] MEDS: vancomycin 1,000 MG in sodium chloride 0.9% 250 ML 250 MG IV (11:47)
[2020-12-19 11:49] LABS: Glucose Point of Care 206 mg/dL (70-110)
[2020-12-19] MEDS: oxyCODONE-APAP 5-325 mg Tablet 1 TAB PO (12:53)
[2020-12-19] MEDS: iron sucrose 200 MG in sodium chloride 0.9% (100 ml) 100 ML 220 MG IV (14:10)
[2020-12-19] MEDS: magnesium hydroxide 30 mL UDC PO (16:11)
[2020-12-19] MEDS: bisacodyl 5 mg Tablet 10 MG PO (16:12)
--- NOTE | 2020-12-19 16:16 | PC.NURSE ---
Verbal order receive from Dr. Mccurdy given to remove Shine cath and allow patient to straight Cath as he does this at home.
[2020-12-19 16:52] LABS: Glucose Point of Care 183 mg/dL (70-110)
--- NOTE | 2020-12-19 18:39 | PC.NURSE ---
Straight Cath patient at this time with 500mls of dark yellow urine drained.
--- NOTE | 2020-12-19 18:55 | PC.NURSE ---
Report to Ursula NAPOLES at this time.
[2020-12-19 20:08] LABS: Glucose Point of Care 165 mg/dL (70-110)
[2020-12-19] MEDS: insulin glargine 100 units/1 mL 10 UNIT SUBCUT (20:36)
[2020-12-20] VITALS (11 sets, daily range): BP systolic 100–134; BP diastolic 55–68; PULSE 63–100; RESP 16–18; TEMP 36.4–38.4; O2SAT 90–95
[2020-12-20] MEDS: vancomycin 1,000 MG in sodium chloride 0.9% 250 ML 250 MG IV ×2 (04:32→22:05)
[2020-12-20] MEDS: heparin 5,000 unit/mL INJ 1 mL 5000 UNIT SUBCUT ×3 (04:38→20:17)
--- NOTE | 2020-12-20 05:20 | PC.NURSE ---
shift summary Patient slept most of the night. Did straight cath at 2300, had an output of 1425ml. Doctor notified see physicians notification for details. Patient had temp of 99.8 at midnight, temp was 97.5 at 400. Placed draper cath at
[2020-12-20] MEDS: piperacillin-tazobactam 3.375 GM in sodium chloride 0.9% (plus) 50 ML IV ×3 (06:04→23:55)
[2020-12-20 06:05] LABS: Glucose Point of Care 152 mg/dL (70-110)
--- NOTE | 2020-12-20 09:19 | P.PN_ITS ---
Subjective Subjective: Interval history: The patient is doing well. He is anxious to try to get out of the hospital. Nursing apparently changed his dressing last night and he reports states that everything looked good. Vitals/I&O/Wt Last Vital Signs Temp 97.6 F 12/20/20 07:56 Pulse 83 12/20/20 08:40 Resp 18 12/20/20 08:40 BP 130/68 12/20/20 07:56 Pulse Ox 92 12/20/20 08:40 12/19/20 12/20/20 12/20/20 22:59 06:59 14:59 Intake Total 480 / 1560 420 / 1560 Output Total 500 / 1450 950 / 1450 Balance -20 / 110 -530 / 110 Weight last 48 hrs Weight 160 lb 1.6 oz Weight 166 lb 4.8 oz Physical Exam Narrative: EXAM NARRATIVE: As above. I am not going to undo his entire dressing this morning. Urinary Catheter Management^: Shine: Cath Placed During This Visit: yes, but has since been removed by the nurse Reason for Continuing Indwelling Catheter: Assist Healing of Perineal & Sacral Wounds- Incontinent Patients Urinary Catheter Date of Insertion: 12/20/20 Urinary Catheter Time of Insertion: 04:07 Date Urinary Catheter Removed: 12/19/20 Time Urinary Catheter Discontinued: 14:00 Data : 12/19/20 08:21 12/19/20 08:21 Micro: Microbiology 12/16/20 19:30 Gram Stain - Final Sputum - Expectorated Sputum Sputum Culture - Final 12/19/20 08:32 Blood Culture - Preliminary Blood NEGATIVE TO DATE 12/19/20 08:21 Blood Culture - Preliminary Blood NEGATIVE TO DATE 12/14/20 16:20 Blood Culture - Final Blood Strep anginosus group 12/15/20 11:30 Gram Stain - Final Other Source Anaerobic Culture - Preliminary Wound Culture - Final Pseudomonas aeruginosa Klebsiella pneumoniae Enterococcus faecalis 12/14/20 12:45 Blood Culture - Final Blood NO GROWTH AFTER 5 DAYS A&P Assessment and plan (1) Decubitus ulcer of back, stage 4: Status post surgical debridement tissue and bone cultures on 12/15/2020. Likely close to discharge. PICC line. Continue daily wound care. If the patient cannot get adequate home health arranged (he says he has had only one visit from [facility] since leaving [facility] 3 weeks prior to this admission), then I will recommend he follow-up with the [facility] wound clinic for further continuing care. Status: Acute (2) Osteomyelitis: Radiographic/culture evidence of osteomyelitis. Status: Acute Attestations Medical Necessity Statement*: See admitting service's notation. Coding Level of Care Code Acute Oyster Shucker for Michaela Bradshaw Diagnoses Decubitus ulcer of back, stage 4 L89.104 Osteomyelitis M86.9
[2020-12-20] MEDS: gabapentin 300 mg Capsule PO ×3 (09:42→20:17)
[2020-12-20] MEDS: pantoprazole DR 40 mg Tablet PO (09:42)
[2020-12-20] MEDS: ALPRAZolam 0.25 mg Tablet PO ×2 (09:42→20:17)
[2020-12-20] MEDS: iron polysaccharide complex 150 mg Capsule PO (09:42)
[2020-12-20] MEDS: amlodipine 10 mg Tablet PO (09:43)
[2020-12-20] MEDS: metoprolol tartrate 25 mg Tablet PO ×2 (09:43→20:17)
[2020-12-20] MEDS: clopidogrel 75 mg Tablet PO (09:43)
[2020-12-20] MEDS: polyethylene glycol 3350 Pkt 17 gm PO (09:43)
[2020-12-20] MEDS: bisacodyl 5 mg Tablet 10 MG PO (09:43)
[2020-12-20] MEDS: oxyCODONE-APAP 5-325 mg Tablet 1 TAB PO ×2 (10:17→15:49)
[2020-12-20 11:15] LABS: Glucose Point of Care 261 mg/dL (70-110)
[2020-12-20] MEDS: silver sulfadiazine cream 1% 50 gm 1 APPLIC TOPICAL (11:59)
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
[2020-12-20 19:10] LABS: Glucose Point of Care 116 mg/dL (70-110)
[2020-12-20 20:06] LABS: Basophils % 0.3 %; Eosinophils # 0.2 10^3/uL (0.0-0.8); Hematocrit 31.5 % (42.0-52.0); Hemoglobin 9.5 g/dL (11.7-16.6); Lymphocytes # 1.4 10^3/uL (0.8-4.8); Mean Corpuscular HGB Conc 30.2 g/dL (30.0-36.0); Mean Corpuscular Volume 79.5 fL (80-94); Mean Platelet Volume 9.7 fL (7.4-10.4); Monocytes # 0.7 10^3/uL (0.2-0.9); Monocytes % 5.7 %; Neutrophils # 9.31 10^3/uL (1.8-7.7); Neutrophils % 79.4 %; Nucleated Red Blood Cells % 0 %; Platelet Count 341 10^3/cmm (130-400); Red Blood Count 3.96 10^6/uL (4.1-5.3); White Blood Count 11.7 10^3/uL (4.0-10.0)
[2020-12-20] MEDS: acetaminophen 325 mg Tablet 650 MG PO (20:18)
[2020-12-20 20:19] LABS: Alanine Aminotransferase 13 U/L (0-41); Albumin Level 2.7 g/dL (3.5-5.2); Alkaline Phosphatase 77 IU/L (40-130); Anion Gap 16.8 (5-19); Aspartate Amino Transferase 15 U/L (0-40); Blood Urea Nitrogen 7 mg/dL (8-23); Calcium 8.5 mg/dL (8.5-10.5); Carbon Dioxide 25 mmol/L (22-29); Chloride 98 mmol/L (98-107); Globulin 2.9 g/dL (1.3-4.6); Glomerular Filtration Rate 213.3 mL/min (90-130); Glucose 197 mg/dL (65-115); Osmolality Calculated 285 mOsm/kg (285-295); Potassium 3.8 mmol/L (3.5-5.1); Sodium 136 mmol/L (136-145); Total Bilirubin 0.3 mg/dL (0.15-1.2); Total Protein 5.6 g/dL (6.6-8.7)
[2020-12-20 20:24] LABS: Procalcitonin 0.21 ng/mL (0-0.5)
[2020-12-20 20:33] LABS: Glucose Point of Care 225 mg/dL (70-110)
[2020-12-20 21:42] LABS: Vancomycin Trough 9.1 ug/mL (10-15)
[2020-12-20] MEDS: insulin glargine 100 units/1 mL 10 UNIT SUBCUT (22:07)
[2020-12-21] VITALS (10 sets, daily range): BP systolic 131–154; BP diastolic 67–73; PULSE 65–88; RESP 16–18; TEMP 36.7–37.8; O2SAT 92–95; BMI 24.5
[2020-12-21] MEDS: heparin 5,000 unit/mL INJ 1 mL 5000 UNIT SUBCUT ×3 (03:18→19:27)
[2020-12-21 05:01] LABS: Basophils % 0.3 %; Eosinophils # 0.4 10^3/uL (0.0-0.8); Eosinophils % 3.7 %; Hematocrit 32.3 % (42.0-52.0); Hemoglobin 9.7 g/dL (11.7-16.6); Lymphocytes # 2.2 10^3/uL (0.8-4.8); Lymphocytes % 22.9 %; Mean Corpuscular Hemoglobin 24.6 pg (28.0-34.0); Mean Corpuscular Volume 81.8 fL (80-94); Mean Platelet Volume 9.7 fL (7.4-10.4); Monocytes # 0.6 10^3/uL (0.2-0.9); Neutrophils % 66.2 %; Nucleated Red Blood Cells % 0 %; Platelet Count 378 10^3/cmm (130-400); Red Blood Count 3.95 10^6/uL (4.1-5.3); Red Cell Distribution Width 16.4 % (12.1-15.1); White Blood Count 9.7 10^3/uL (4.0-10.0)
[2020-12-21 05:19] LABS: Alanine Aminotransferase 12 U/L (0-41); Albumin Level 2.4 g/dL (3.5-5.2); Alkaline Phosphatase 74 IU/L (40-130); Anion Gap 12.4 (5-19); Aspartate Amino Transferase 13 U/L (0-40); Blood Urea Nitrogen 6 mg/dL (8-23); Calcium 8.7 mg/dL (8.5-10.5); Carbon Dioxide 28 mmol/L (22-29); Chloride 105 mmol/L (98-107); Globulin 3.1 g/dL (1.3-4.6); Glomerular Filtration Rate 297.3 mL/min (90-130); Glucose 106 mg/dL (65-115); Osmolality Calculated 292 mOsm/kg (285-295); Potassium 3.4 mmol/L (3.5-5.1); Sodium 142 mmol/L (136-145); Total Bilirubin 0.3 mg/dL (0.15-1.2); Total Protein 5.5 g/dL (6.6-8.7)
--- NOTE | 2020-12-21 06:29 | PC.NURSE ---
came out around the rectal tube
[2020-12-21 06:43] LABS: Glucose Point of Care 128 mg/dL (70-110)
[2020-12-21] MEDS: piperacillin-tazobactam 3.375 GM in sodium chloride 0.9% (plus) 50 ML IV ×3 (07:23→23:39)
[2020-12-21] MEDS: clopidogrel 75 mg Tablet PO (08:25)
[2020-12-21] MEDS: ALPRAZolam 0.25 mg Tablet PO ×2 (08:25→21:06)
[2020-12-21] MEDS: metoprolol tartrate 25 mg Tablet PO ×2 (08:26→21:06)
[2020-12-21] MEDS: gabapentin 300 mg Capsule PO ×3 (08:26→21:06)
[2020-12-21] MEDS: iron polysaccharide complex 150 mg Capsule PO (08:26)
[2020-12-21] MEDS: pantoprazole DR 40 mg Tablet PO (08:26)
[2020-12-21] MEDS: amlodipine 10 mg Tablet PO (08:26)
--- NOTE | 2020-12-21 10:49 | PC.SOCIAL ---
* IMM UPDATE * Gave patient IMM update, provided copy of pg 2. Verbalized understanding. 12/21/20 @ 0910 Initialed, dated, timed and placed in chart.
[2020-12-21 11:00] LABS: Glucose Point of Care 247 mg/dL (70-110)
[2020-12-21] MEDS: oxyCODONE-APAP 5-325 mg Tablet 1 TAB PO ×2 (11:05→19:26)
[2020-12-21] MEDS: vancomycin 1,000 MG in sodium chloride 0.9% 250 ML 250 MG IV ×2 (11:06→22:18)
[2020-12-21] MEDS: potassium chloride ER 20 mEq Tablet 40 MEQ PO (11:06)
[2020-12-21] MEDS: silver sulfadiazine cream 1% 50 gm 1 APPLIC TOPICAL (11:10)
--- NOTE | 2020-12-21 11:20 | CT_ITS ---
WS: [id number] CT THORACIC SPINE with contrast. HISTORY: evaluate for abscess, hardware infection TECHNIQUE: Contiguous 2.5 mm axial images are reviewed to thoracic spine. Images are reformatted in s agittal and coronal planes. All CT scans at [facility] use at least one of these dose opt imization techniques: automated exposure control; mA and/or kV adjustment per patient size (includes targeted exams where dose is matched to clinical indication); or iterative reconstruction. DLP: 2002.18 mGy.cm COMPARISON: None available. Contrast: Omnipaque 300 95 mL IV. Long curvature thoracic scoliosis to the RIGHT. Extensive posterior fusion hardware extends from T4 t o T9. Pedicle screws and bilateral vertical rods appear intact. No significant amount of lucency surr ounding the pedicle screws. No air within the disc spaces. No bone destruction or fracture. There is significant amount of beam hardening artifact from the hardware obscuring focal areas of inflammation or abscess formation. There is some very mild soft tissue thickening adjacent to the vertebral phil s but this could all be postoperative. Laminectomy defects are identified at several levels. Most sig nificantly from the T6 and T7 levels. Dependent changes and groundglass attenuation at the lung bases. Small hiatal hernia. Atherosclerosis thoracic aorta. Prior CABG. CT/CT thoracic spine w con [id number] IMPRESSION: 1. No enhancing masses identified. 2. No evidence seen by CT for discitis or osteomyelitis although this study is not sensitive for subtle areas of infection. 3. Prior posterior lumbar fusion extending from T4 to T9.
--- NOTE | 2020-12-21 11:20 | CT_ITS ---
WS: [id number] CT LUMBAR SPINE, with contrast. HISTORY: Evaluate for abscess, infected hardware TECHNIQUE: Contiguous 2.5 mm axial imaging are performed. Sagittal and coronal reformats are submitte d and reviewed. All CT scans at [facility] use at least one of these dose optimization te chniques: automated exposure control; mA and/or kV adjustment per patient size (includes targeted exa ms where dose is matched to clinical indication); or iterative reconstruction. IV contrast: Omnipaque 300; 95 mL IV. DLP: 2342.49 mGy.cm COMPARISON: None available. Posterior lumbar alignment is normal with mild straightening. Disc space narrowing and desiccation at all levels. Vacuum disc phenomenon at L2-3 and L5-S1. No osseous destruction is identified. There ar e no areas of abnormal enhancement appreciated. No abscess. Moderate degenerative disc disease with f acet joint arthritis and osteophytic ridging around several vertebral bodies. Mild central and bilateral foraminal stenosis at L2-3, L3-4, L4-5 and L5-S1. More significant encroac hment upon the S1 nerve roots bilaterally at the L5-S1 level. Mild cortical irregularity along the adjacent endplates at L4-5 towards the RIGHT but there is no ass ociated soft tissue inflammatory change. Probably degenerative. Atherosclerotic plaque within the aorta with no aneurysm. CT/CT lumbar spine w con [id number] IMPRESSION: 1. Advanced degenerative changes with multilevel areas of central and foramina l stenoses. 2. No evidence for discitis or osteomyelitis or abscess identified by CT.
--- NOTE | 2020-12-21 11:47 | P.PN_ITS ---
Subjective Subjective: Interval history: I encountered the patient in his room this morning during his dressing change. He has some thin eschar developing along the left side of his wound in addition to some early necrosis of tissue towards the base. I discussed a bedside debridement with him and he agreed to proceed. Vitals/I&O/Wt Last Vital Signs Temp 98.3 F 12/21/20 07:49 Pulse 72 12/21/20 07:49 Resp 18 12/21/20 11:05 BP 136/71 12/21/20 07:49 Pulse Ox 92 12/21/20 07:49 12/20/20 12/21/20 12/21/20 22:59 06:59 14:59 Intake Total 290 / 1120 300 / 1120 360 / 360 Output Total 0 / 1400 650 / 650 Balance 290 / -280 300 / -280 -290 / -290 Weight last 48 hrs Weight 156 lb 6 oz Weight 160 lb 1.6 oz Physical Exam Narrative: EXAM NARRATIVE: The patient has a thin eschar along the edge of the wound along the left side. He has a small amount of necrotic tissue along the base on the same side and a few small scattered areas of early necrosis throughout the remainder of the wound. The area was prepped with Betadine and 1% lidocaine was used for local anesthetic. A combination of scalpel and scissor sharp dissection was used to remove all of the eschar and necrotic tissue, approximating perhaps 25 cm? of tissue today. Silvadene was introduced into the wound base and the wound was then dressed by the patient's nurse. Urinary Catheter Management^: Shine: Cath Placed During This Visit: yes, but has since been removed by the nurse Reason for Continuing Indwelling Catheter: Assist Healing of Perineal & Sacral Wounds- Incontinent Patients Urinary Catheter Date of Insertion: 12/20/20 Urinary Catheter Time of Insertion: 04:07 Date Urinary Catheter Removed: 12/19/20 Time Urinary Catheter Discontinued: 14:00 Data : 12/21/20 04:32 12/21/20 04:32 Micro: Microbiology 12/14/20 16:20 Blood Culture - Final Blood Strep anginosus group Bacteroides thetaiotaomicron 12/15/20 11:30 Gram Stain - Final Other Source Anaerobic Culture - Preliminary Bacteroides thetaiotaomicron Wound Culture - Final Pseudomonas aeruginosa Klebsiella pneumoniae Enterococcus faecalis 12/16/20 19:30 Gram Stain - Final Sputum - Expectorated Sputum Sputum Culture - Final 12/19/20 08:32 Blood Culture - Preliminary Blood NEGATIVE TO DATE 12/19/20 08:21 Blood Culture - Preliminary Blood NEGATIVE TO DATE A&P Assessment and plan (1) Decubitus ulcer of back, stage 4: Status post surgical debridement tissue and bone cultures on 12/15/2020 followed by a bedside debridement today. The findings at the wound today warranted a bedside debridement, but I doubt they have anything to do with the patient's recent fevers. His white blood cell count is normal. The patient can be discharged when okay with medicine/hospitalist team. Follow- up in wound clinic. Status: Acute (2) Osteomyelitis: Status: Acute Qualifiers: Osteomyelitis location: other site Osteomyelitis type: chronic, with draining sinus Qualified Code(s): M86.48 - Chronic osteomyelitis with draining sinus, other site Attestations Medical Necessity Statement*: See admitting service's notation. 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
[2020-12-21 13:23] LABS: Influenza A by IFA Negative (Negative); Influenza B by IFA Negative (Negative); SARS Covid-2 Antigen Negative (Negative)
[2020-12-21] MEDS: iohexol 300 mg/mL 100 mL Btl IV ×2 (13:48)
[2020-12-21] MEDS: lidocaine 1% INJ 20 mL 5 ML IV (15:17)
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
[2020-12-21 17:20] LABS: Glucose Point of Care 172 mg/dL (70-110)
[2020-12-21 21:00] LABS: Glucose Point of Care 241 mg/dL (70-110)
[2020-12-21] MEDS: insulin glargine 100 units/1 mL 20 UNIT SUBCUT (21:07)
[2020-12-22] VITALS (10 sets, daily range): BP systolic 115–147; BP diastolic 50–69; PULSE 61–89; RESP 16–18; TEMP 36.6–37.1; O2SAT 93–96
[2020-12-22] MEDS: heparin 5,000 unit/mL INJ 1 mL 5000 UNIT SUBCUT ×3 (03:49→20:05)
[2020-12-22] MEDS: piperacillin-tazobactam 3.375 GM in sodium chloride 0.9% (plus) 50 ML IV (06:17)
[2020-12-22 06:18] LABS: Basophils % 0.3 %; Eosinophils # 0.4 10^3/uL (0.0-0.8); Eosinophils % 3.7 %; Hematocrit 32.7 % (42.0-52.0); Hemoglobin 9.8 g/dL (11.7-16.6); Lymphocytes # 2.4 10^3/uL (0.8-4.8); Lymphocytes % 24.5 %; Mean Corpuscular Hemoglobin 24.5 pg (28.0-34.0); Mean Corpuscular Volume 81.8 fL (80-94); Mean Platelet Volume 9.2 fL (7.4-10.4); Monocytes # 0.6 10^3/uL (0.2-0.9); Monocytes % 6.3 %; Neutrophils # 6.23 10^3/uL (1.8-7.7); Neutrophils % 64.3 %; Nucleated Red Blood Cells % 0 %; Platelet Count 391 10^3/cmm (130-400); Red Cell Distribution Width 16.7 % (12.1-15.1); White Blood Count 9.7 10^3/uL (4.0-10.0)
[2020-12-22 06:37] LABS: Alanine Aminotransferase 12 U/L (0-41); Albumin Level 2.7 g/dL (3.5-5.2); Alkaline Phosphatase 74 IU/L (40-130); Anion Gap 11.9 (5-19); Aspartate Amino Transferase 12 U/L (0-40); Blood Urea Nitrogen 4 mg/dL (8-23); Calcium 8.8 mg/dL (8.5-10.5); Carbon Dioxide 30 mmol/L (22-29); Chloride 102 mmol/L (98-107); Glomerular Filtration Rate 297.3 mL/min (90-130); Glucose 101 mg/dL (65-115); Osmolality Calculated 287 mOsm/kg (285-295); Potassium 3.9 mmol/L (3.5-5.1); Sodium 140 mmol/L (136-145); Total Bilirubin 0.2 mg/dL (0.15-1.2); Total Protein 5.7 g/dL (6.6-8.7)
[2020-12-22 06:39] LABS: Glucose Point of Care 96 mg/dL (70-110)
[2020-12-22] MEDS: oxyCODONE-APAP 5-325 mg Tablet 1 TAB PO ×2 (08:54→18:45)
[2020-12-22] MEDS: amlodipine 10 mg Tablet PO (08:55)
[2020-12-22] MEDS: clopidogrel 75 mg Tablet PO (08:55)
[2020-12-22] MEDS: pantoprazole DR 40 mg Tablet PO (08:55)
[2020-12-22] MEDS: gabapentin 300 mg Capsule PO ×3 (08:55→21:38)
[2020-12-22] MEDS: iron polysaccharide complex 150 mg Capsule PO (08:55)
[2020-12-22] MEDS: ALPRAZolam 0.25 mg Tablet PO ×2 (08:55→21:39)
[2020-12-22] MEDS: silver sulfadiazine cream 1% 50 gm 1 APPLIC TOPICAL (08:56)
[2020-12-22] MEDS: metoprolol tartrate 25 mg Tablet PO ×2 (08:59→21:39)
[2020-12-22 11:42] LABS: Glucose Point of Care 214 mg/dL (70-110)
[2020-12-22] MEDS: vancomycin 1,000 MG in sodium chloride 0.9% 250 ML 250 MG IV ×2 (12:47→23:26)
[2020-12-22 16:59] LABS: Glucose Point of Care 196 mg/dL (70-110)
[2020-12-22] MEDS: metroNIDAZOLE IV 250 MG in empty flexible container 1 EACH 50 MG IV (17:36)
--- NOTE | 2020-12-22 18:16 | P.PN_ITS ---
Subjective Subjective: Interval history: He is feeling great. Thinks fever was just him running hot . He inquires about going home. Vitals/I&O/Wt Last Vital Signs Temp 98.6 F 12/22/20 16:00 Pulse 62 12/22/20 16:00 Resp 16 12/22/20 16:00 BP 121/59 12/22/20 16:00 Pulse Ox 93 12/22/20 16:00 12/22/20 12/22/20 12/22/20 06:59 14:59 22:59 Intake Total 300 / 2330 1180 / 1180 100 / 1280 Output Total 1350 / 3500 2300 / 2300 Balance -1050 / -1170 -1120 / -1120 100 / -1020 Weight last 48 hrs Weight 69.127 kg Weight 70.931 kg Physical Exam Narrative: EXAM NARRATIVE: at bedside. Const: COMMON NORMALS: no acute distress and patient oriented x3 HENMT: COMMON NORMALS: oropharynx normal Neck/C-Spine: COMMON NORMALS: no JVD Resp: COMMON NORMALS: normal respiratory effort and clear to auscultation bilaterally AUSCULTATION: clear to auscultation bilaterally Cardio: COMMON NORMALS: no JVD, regular rhythm, S1 normal heart sound present, S2 normal heart sound present and No murmurs present (Cardio) RHYTHM: regular rhythm HEART SOUNDS: S1 normal heart sound present and S2 normal heart sound present GI: COMMON NORMALS: Normal to inspection, nondistended, normoactive bowel sounds present, Soft to palpation and non-tender PALPATION: Yes Soft to palpation Extremity: COMMON NORMALS: no joint enlargement and no pedal edema OTHER: Right arm CVC Neuro: COMMON NORMALS: patient oriented x3 and moves all extremities Skin: OTHER: Sacral wound at this time not examined Urinary Catheter Management^: Shine: Cath Placed During This Visit: yes, but has since been removed by the nurse Reason for Continuing Indwelling Catheter: Assist Healing of Perineal & Sacral Wounds- Incontinent Patients Urinary Catheter Date of Insertion: 12/22/20 Urinary Catheter Time of Insertion: 11:30 Date Urinary Catheter Removed: 12/19/20 Time Urinary Catheter Discontinued: 14:00 Data : 12/22/20 05:58 12/22/20 05:58 Micro: Microbiology 12/21/20 11:27 Stool Lactoferrin - Final Stool Enteric Pathogens (PCR) - Final Parasite Antigen Panel - Final C.difficile Toxin B Gene (PCR) - Final Occult Blood (FIT) - Final 12/15/20 11:30 Gram Stain - Final Other Source Anaerobic Culture - Final Bacteroides thetaiotaomicron Wound Culture - Final Pseudomonas aeruginosa Klebsiella pneumoniae Enterococcus faecalis 12/16/20 15:20 Blood Culture - Final Blood NO GROWTH AFTER 5 DAYS 12/16/20 15:14 Blood Culture - Final Blood NO GROWTH AFTER 5 DAYS A&P Assessment and plan (1) Giardia: With recurrent fever stool studies were sent. C. difficile negative. Bacterial panel negative. Giardia appears positive. Add Flagyl. Contact isolation. Status: Acute (2) Osteomyelitis: Recurrent fevers discussed with infectious disease today. We requested to replace Shine catheter. Change antibiotic from Zosyn to Primaxin. Thoracic and lumbar CT without definitive evidence of discitis/osteomyelitis. Osteomyelitis of the sacrum as a result of chronically exposed bone from his st age IV sacral decubitus ulcer. Status post I&D in the OR on 518. OR cultures with polymicrobial growth as noted above with Pseudomonas, Klebsiella, E faecalis and Bacteroides. Blood culture upon admission positive for strep angina gnosis and Bacteroides. He is intent on returning home with home IV antibiotics. Status: Acute Qualifiers: Osteomyelitis location: other site Osteomyelitis type: chronic, with draining sinus Qualified Code(s): M86.48 - Chronic osteomyelitis with draining sinus, other site (3) Streptococcal bacteremia: Strep anginosus, Bacteroides Status: Acute (4) Decubitus ulcer of back, stage 4: Status: Acute (5) Paraplegia: Status: Acute (6) H/O Spinal surgery: Status: Acute Additional A&P Information History of CAD/CABG: Echocardiogram shows an EF of 71% with mild LVH, grade 1 diastolic dysfunction, mildly increased LA size, mild MR. Continue with clopidogrel, beta-vivien. Patient is on Repatha as an outpatient for hyperlipidemia. Type 2 diabetes mellitus: A1c 8.4. Insulin dose adjusted. Continue current insulin dose with insulin sliding scale. Most likely patient would need to be discharged on combination oral therapy. Hypertension: at goal Anemia: Iron deficiency. Finished 1 mg IV course. Oral iron supplementation Continue other chronic medications including Xanax, gabapentin, Protonix, stool softener. Attestations Medical Necessity Statement*: Continue admission for assessment management of recurrent fever, decubitus ulcer with recurrent fever, giardiasis. Coding Level of Care Code Acute Branch Operations Specialist for [facility] Fwd Diagnoses Giardia A07.1 Osteomyelitis M86.48 Osteomyelitis location: other site Osteomyelitis type: chronic, with draining sinus Streptococcal bacteremia R78.81; B95.5 Decubitus ulcer of back, stage 4 L89.104 Paraplegia G82.20 H/O Spinal surgery Z98.890
[2020-12-22 20:29] LABS: Glucose Point of Care 206 mg/dL (70-110)
[2020-12-22] MEDS: insulin glargine 100 units/1 mL 20 UNIT SUBCUT (21:39)
--- NOTE | 2020-12-22 23:28 | P.PN_ITS ---
Subjective Subjective: Interval history: no new compaints, fever curve improving Vitals/I&O/Wt Last Vital Signs Temp 98.8 F 12/22/20 19:47 Pulse 80 12/22/20 20:17 Resp 16 12/22/20 20:17 BP 147/64 12/22/20 19:47 Pulse Ox 96 12/22/20 20:17 12/22/20 12/22/20 12/23/20 14:59 22:59 06:59 Intake Total 1180 / 1180 390 / 1570 Output Total 2300 / 2300 1225 / 3525 Balance -1120 / -1120 -835 / -1955 Weight last 48 hrs Weight 69.127 kg Weight 70.931 kg Physical Exam Narrative: EXAM NARRATIVE: GEN: Awake, alert and oriented, no acute distress HEENT: NC/AT, PERRLA CVS: S1S2 N RS: CTA B/L all reas anteriorly Abd: Soft, nt/nd , bs+ EXT: sacral decubitus ulcer, not opened for exam today Urinary Catheter Management^: Shine: Cath Placed During This Visit: yes, but has since been removed by the nurse Reason for Continuing Indwelling Catheter: Assist Healing of Perineal & Sacral Wounds- Incontinent Patients Urinary Catheter Date of Insertion: 12/22/20 Urinary Catheter Time of Insertion: 11:30 Date Urinary Catheter Removed: 12/19/20 Time Urinary Catheter Discontinued: 14:00 Data : 12/23/20 06:11 12/23/20 06:11 Micro: Microbiology 12/21/20 11:27 Stool Lactoferrin - Final Stool Enteric Pathogens (PCR) - Final Parasite Antigen Panel - Final C.difficile Toxin B Gene (PCR) - Final Occult Blood (FIT) - Final 12/15/20 11:30 Gram Stain - Final Other Source Anaerobic Culture - Final Bacteroides thetaiotaomicron Wound Culture - Final Pseudomonas aeruginosa Klebsiella pneumoniae Enterococcus faecalis A&P Assessment and plan (1) Osteomyelitis: Osteomyelitis of the sacrum as a result of chronically exposed bone from his stage IV sacral decubitus ulcer. Status post I&D in the OR on 518. OR cultures with polymicrobial growth as noted above with Pseudomonas, Klebsiella, E faecalis and Bacteroides. Blood culture upon admission positive for strep angina gnosis and Bacteroides. All of the above organisms are currently appropriately covered with piperacillin tazobactam. No MRSA identified on culture. Urine culture with staph aureus upon presentation, may be a result of intermittent self cath versus cannot exclude possibility of being bactermic with staph, however repeated blood cultures have not shown any growth of Sta phylococcus. Patient continues to have persistent fever starting on 521 in spite of being on appropriate antibiotics and having undergone debridement. repeat wound check without overt signs of worsening, appears clean, does not appear to be current source of fever. CT of the abdomen and pelvis did not reveal any intra-abdominal sources of infection. Patient denies any diarrhea, incidnetal + for giardia PCR, added Flagyl for the same. CT of the thoracolumbar area without evidence of epidural abscess and/or hardware infection at the site. Blood cx after insertion of PICC on 12/18 negative thus far. Possibility of drug fever cannot be excluded, likely 2/2 Zosyn. REcommend changing abx coverage to imipenem while inpatient with transition to meropenem upon discharge if fever dissipates. Total duration of rx: 6 weeks D/c Vancomcyin follow up ID clinic in 4-5 weeks Status: Acute Qualifiers: Osteomyelitis location: other site Osteomyelitis type: chronic, with draining sinus Qualified Code(s): M86.48 - Chronic osteomyelitis with draining sinus, other site (2) Streptococcal bacteremia: Status: Resolved (3) Decubitus ulcer of back, stage 4: Status: Acute (4) Paraplegia: (5) H/O Spinal surgery: Attestations Medical Necessity Statement*: per admitting note Coding Level of Care Code Acute Regional Sales Trainer for [facility] Diagnoses Osteomyelitis M86.48 Osteomyelitis location: other site Osteomyelitis type: chronic, with draining sinus Streptococcal bacteremia R78.81; B95.5 Decubitus ulcer of back, stage 4 L89.104 Paraplegia G82.20 H/O Spinal surgery Z98.890
[2020-12-23] VITALS (10 sets, daily range): BP systolic 112–151; BP diastolic 59–72; PULSE 56–88; RESP 14–20; TEMP 36.7–37.3; O2SAT 92–96
[2020-12-23] MEDS: metroNIDAZOLE IV 250 MG in empty flexible container 1 EACH 50 MG IV ×3 (00:59→18:16)
[2020-12-23] MEDS: heparin 5,000 unit/mL INJ 1 mL 5000 UNIT SUBCUT ×3 (04:10→21:02)
--- NOTE | 2020-12-23 05:06 | PC.NURSE ---
Shift Summary Patient has slept most of the night. No complaints of pain and has had no fever during this shift.
[2020-12-23 06:33] LABS: Basophils % 0.4 %; Eosinophils # 0.3 10^3/uL (0.0-0.8); Eosinophils % 3.6 %; Hematocrit 32.4 % (42.0-52.0); Hemoglobin 9.9 g/dL (11.7-16.6); Lymphocytes # 2.2 10^3/uL (0.8-4.8); Lymphocytes % 27.1 %; Mean Corpuscular HGB Conc 30.6 g/dL (30.0-36.0); Mean Corpuscular Hemoglobin 24.7 pg (28.0-34.0); Mean Corpuscular Volume 80.8 fL (80-94); Mean Platelet Volume 9.3 fL (7.4-10.4); Monocytes # 0.5 10^3/uL (0.2-0.9); Monocytes % 6.1 %; Neutrophils # 5.06 10^3/uL (1.8-7.7); Neutrophils % 61.6 %; Nucleated Red Blood Cells % 0 %; Platelet Count 389 10^3/cmm (130-400); Red Blood Count 4.01 10^6/uL (4.1-5.3); White Blood Count 8.2 10^3/uL (4.0-10.0)
[2020-12-23 06:33] LABS: Glucose Point of Care 89 mg/dL (70-110)
[2020-12-23 06:52] LABS: Anion Gap 9.5 (5-19); Blood Urea Nitrogen 5 mg/dL (8-23); Calcium 8.5 mg/dL (8.5-10.5); Carbon Dioxide 29 mmol/L (22-29); Chloride 104 mmol/L (98-107); Glomerular Filtration Rate 297.3 mL/min (90-130); Glucose 94 mg/dL (65-115); Osmolality Calculated 285 mOsm/kg (285-295); Potassium 3.5 mmol/L (3.5-5.1); Sodium 139 mmol/L (136-145)
[2020-12-23 06:58] LABS: Procalcitonin 0.16 ng/mL (0-0.5)
[2020-12-23] MEDS: gabapentin 300 mg Capsule PO ×3 (07:43→21:02)
[2020-12-23] MEDS: iron polysaccharide complex 150 mg Capsule PO (07:43)
[2020-12-23] MEDS: amlodipine 10 mg Tablet PO (07:43)
[2020-12-23] MEDS: clopidogrel 75 mg Tablet PO (07:44)
[2020-12-23] MEDS: metoprolol tartrate 25 mg Tablet PO ×2 (07:44→21:02)
[2020-12-23] MEDS: pantoprazole DR 40 mg Tablet PO (07:44)
[2020-12-23] MEDS: ALPRAZolam 0.25 mg Tablet PO ×2 (07:44→21:02)
[2020-12-23] MEDS: silver sulfadiazine cream 1% 50 gm 1 APPLIC TOPICAL (07:48)
[2020-12-23 11:06] LABS: Glucose Point of Care 218 mg/dL (70-110)
[2020-12-23] MEDS: oxyCODONE-APAP 5-325 mg Tablet 1 TAB PO ×2 (11:08→19:04)
[2020-12-23] MEDS: vancomycin 1,000 MG in sodium chloride 0.9% 250 ML 250 MG IV (11:33)
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
[2020-12-23] MEDS: meropenem 1,000 MG in sodium chloride 0.9% (plus) 50 ML 100 MG IV (13:13)
[2020-12-23 17:41] LABS: Glucose Point of Care 151 mg/dL (70-110)
[2020-12-23 21:04] LABS: Glucose Point of Care 125 mg/dL (70-110)
[2020-12-23] MEDS: meropenem 500 MG in sodium chloride 0.9% (plus) 50 ML 100 MG IV (21:20)
--- NOTE | 2020-12-24 07:55 | PC.SOCIAL ---
*IMM UPDATE* Gave patient IMM update w/ at bedside, he verbalized understanding 12/23/20 @ 4670
== END 2020-12-23 22:51 | disposition home health service (06) | DRG 628 ==
LOC: ER 12:03 → MEDSURG 15:22
PROVIDERS: Internal Medicine; Student in an Organized Health Care Education/Training Program; Surgery; Admitting Provider Student in an Organized Health Care Education/Training Program; Emergency Provider Family Medicine; PCP Family Medicine; Visit Provider Internal Medicine
PROC: 0QB10ZZ Excision of Sacrum, Open Approach (ICD-10-PCS; principal; 2020-12-15 12:00)
DX: E11.69 Type 2 diabetes mellitus with other specified complication (principal); L89.154 Pressure ulcer of sacral region, stage 4; M46.28 Osteomyelitis of vertebra, sacral and sacrococcygeal region; G82.20 Paraplegia, unspecified; N39.0 Urinary tract infection, site not specified; J98.11 Atelectasis; A07.1 Giardiasis [lambliasis]; F41.9 Anxiety disorder, unspecified; I25.10 Atherosclerotic heart disease of native coronary artery without angina pectoris; Z95.5 Presence of coronary angioplasty implant and graft; Z95.1 Presence of aortocoronary bypass graft; E78.2 Mixed hyperlipidemia; I10 Essential (primary) hypertension; T14.8XXS Other injury of unspecified body region, sequela; V89.2XXS Person injured in unspecified motor-vehicle accident, traffic, sequela; Z87.891 Personal history of nicotine dependence; Z98.1 Arthrodesis status; K44.9 Diaphragmatic hernia without obstruction or gangrene; I34.0 Nonrheumatic mitral (valve) insufficiency; E11.51 Type 2 diabetes mellitus with diabetic peripheral angiopathy without gangrene; Z87.440 Personal history of urinary (tract) infections; B95.61 Methicillin susceptible Staphylococcus aureus infection as the cause of diseases classified elsewhere; D50.9 Iron deficiency anemia, unspecified; B96.5 Pseudomonas (aeruginosa) (mallei) (pseudomallei) as the cause of diseases classified elsewhere; B96.1 Klebsiella pneumoniae [K. pneumoniae] as the cause of diseases classified elsewhere; B95.2 Enterococcus as the cause of diseases classified elsewhere; K59.00 Constipation, unspecified; Z79.891 Long term (current) use of opiate analgesic; Z79.02 Long term (current) use of antithrombotics/antiplatelets
CPT/HCPCS: 12345; 36415; 36416; 36569; 51702; 71045; 72129; 72132; 72193; 74177; 80048; 80053; 80061; 80202; 80306; 81001; 82274; 82436; 82550; 82728; 82962; 83036; 83540; 83550; 83605; 83630; 83735; 83880; 84100; 84133; 84145; 84300; 84443; 85025; 85045; 86140; 87040; 87070; 87075; 87077; 87086; 87176; 87186; 87205; 87426; 87493; 87506; 87641; 87804; 93005; 93306; 94640; 94664; 96365; 96367; 96372; 99285; J0743; J1170; J1644; J1756; J1815 ×2; J2185; J2270; J2370; J2405; J2543; J2704; J3370; J7030; J7050; J7611; Q9967; S0030

== ENCOUNTER 2020-12-29 08:49 | Outpatient (CLI) | payer MEDICARE, SELFPAY | END 2020-12-29 08:50 | disposition home or self-care (01) | LOC: WOUND 08:51 | PROVIDERS: PCP Family Medicine; Visit Provider Thoracic Surgery (Cardiothoracic Vascular Surgery) | DX: T21.35XA Burn of third degree of buttock, initial encounter (principal); X08.8XXA Exposure to other specified smoke, fire and flames, initial encounter; L89.159 Pressure ulcer of sacral region, unspecified stage | CPT/HCPCS: 11043; 11046; G0463 ==

== ENCOUNTER 2020-12-30 11:09 | Outpatient (CLI) | payer MEDICARE, SELFPAY ==
[2020-12-30 11:28] LABS: Basophils # 0.1 10^3/uL (0.0-0.1); Basophils % 0.7 %; Eosinophils # 0.2 10^3/uL (0.0-0.8); Eosinophils % 1.7 %; Hematocrit 36.2 % (42.0-52.0); Hemoglobin 10.9 g/dL (11.7-16.6); Lymphocytes # 1.5 10^3/uL (0.8-4.8); Lymphocytes % 15.4 %; Mean Corpuscular HGB Conc 30.1 g/dL (30.0-36.0); Mean Corpuscular Hemoglobin 24.8 pg (28.0-34.0); Mean Corpuscular Volume 82.3 fL (80-94); Mean Platelet Volume 9.5 fL (7.4-10.4); Monocytes # 0.6 10^3/uL (0.2-0.9); Monocytes % 5.5 %; Neutrophils # 7.54 10^3/uL (1.8-7.7); Neutrophils % 76.2 %; Nucleated Red Blood Cells % 0 %; Platelet Count 344 10^3/cmm (130-400); Red Cell Distribution Width 18.2 % (12.1-15.1); White Blood Count 9.9 10^3/uL (4.0-10.0)
[2020-12-30 11:58] LABS: Anion Gap 12.9 (5-19); Blood Urea Nitrogen 8 mg/dL (8-23); C Reactive Protein 36.8 mg/L (0.0-4.9); Carbon Dioxide 30 mmol/L (22-29); Chloride 97 mmol/L (98-107); Glomerular Filtration Rate 213.3 mL/min (90-130); Glucose 267 mg/dL (65-115); Osmolality Calculated 290 mOsm/kg (285-295); Potassium 3.9 mmol/L (3.5-5.1); Sodium 136 mmol/L (136-145)
[2020-12-30 12:10] LABS: Erythrocyte Sedimentation Rate > 120 mm/hr (0-10)
== END 2020-12-30 11:10 | disposition home or self-care (01) ==
LOC: LAB 11:14
PROVIDERS: PCP Family Medicine; Visit Provider Family Medicine
DX: M86.18 Other acute osteomyelitis, other site (principal)
CPT/HCPCS: 80048; 85025; 85651; 86140

== ENCOUNTER 2021-01-05 09:12 | Outpatient (CLI) | payer MEDICARE, SELFPAY | END 2021-01-05 09:13 | disposition home or self-care (01) | LOC: WOUND 09:13 | PROVIDERS: PCP Family Medicine; Visit Provider Thoracic Surgery (Cardiothoracic Vascular Surgery) | DX: I96 Gangrene, not elsewhere classified (principal); L89.154 Pressure ulcer of sacral region, stage 4 | CPT/HCPCS: 11042; 11045 ==

== ENCOUNTER 2021-01-06 09:44 | Outpatient (CLI) | payer MEDICARE, SELFPAY ==
[2021-01-06 10:00] LABS: Basophils # 0.1 10^3/uL (0.0-0.1); Basophils % 0.6 %; Eosinophils # 0.4 10^3/uL (0.0-0.8); Eosinophils % 4.5 %; Hematocrit 36.6 % (42.0-52.0); Hemoglobin 11.2 g/dL (11.7-16.6); Lymphocytes # 2.4 10^3/uL (0.8-4.8); Lymphocytes % 25.6 %; Mean Corpuscular HGB Conc 30.6 g/dL (30.0-36.0); Mean Corpuscular Hemoglobin 24.7 pg (28.0-34.0); Mean Corpuscular Volume 80.6 fL (80-94); Mean Platelet Volume 9.6 fL (7.4-10.4); Monocytes # 0.6 10^3/uL (0.2-0.9); Monocytes % 6.1 %; Neutrophils # 5.82 10^3/uL (1.8-7.7); Neutrophils % 62.7 %; Nucleated Red Blood Cells % 0 %; Platelet Count 274 10^3/cmm (130-400); Red Blood Count 4.54 10^6/uL (4.1-5.3); Red Cell Distribution Width 17.7 % (12.1-15.1); White Blood Count 9.3 10^3/uL (4.0-10.0)
[2021-01-06 10:25] LABS: Anion Gap 13.9 (5-19); Blood Urea Nitrogen 9 mg/dL (8-23); Calcium 9.3 mg/dL (8.5-10.5); Carbon Dioxide 31 mmol/L (22-29); Chloride 96 mmol/L (98-107); Glomerular Filtration Rate 213.3 mL/min (90-130); Glucose 143 mg/dL (65-115); Osmolality Calculated 285 mOsm/kg (285-295); Potassium 3.9 mmol/L (3.5-5.1); Sodium 137 mmol/L (136-145)
[2021-01-06 12:06] LABS: Erythrocyte Sedimentation Rate 79 mm/hr (0-10)
== END 2021-01-06 09:45 | disposition home or self-care (01) ==
PROVIDERS: PCP Family Medicine; Visit Provider Family Medicine
DX: M86.18 Other acute osteomyelitis, other site (principal)
CPT/HCPCS: 80048; 85025; 85651; 86140

== ENCOUNTER 2021-01-12 09:32 | Outpatient (CLI) | payer MEDICARE, SELFPAY | END 2021-01-12 09:33 | disposition home or self-care (01) | LOC: WOUND 09:33 | PROVIDERS: PCP Family Medicine; Visit Provider Thoracic Surgery (Cardiothoracic Vascular Surgery) | DX: I96 Gangrene, not elsewhere classified (principal); L89.154 Pressure ulcer of sacral region, stage 4 | CPT/HCPCS: 11042; 11045 ==

== ENCOUNTER 2021-01-13 11:02 | Outpatient (CLI) | payer MEDICARE, SELFPAY ==
[2021-01-13 11:23] LABS: Hematocrit 35.7 % (42.0-52.0); Mean Corpuscular HGB Conc 30.8 g/dL (30.0-36.0); Mean Corpuscular Hemoglobin 25.1 pg (28.0-34.0); Mean Corpuscular Volume 81.3 fL (80-94); Mean Platelet Volume 9.6 fL (7.4-10.4); Platelet Count 274 10^3/cmm (130-400); Red Blood Count 4.39 10^6/uL (4.1-5.3); Red Cell Distribution Width 17.3 % (12.1-15.1); White Blood Count 8.4 10^3/uL (4.0-10.0)
[2021-01-13 11:55] LABS: Anion Gap 11.7 (5-19); Blood Urea Nitrogen 6 mg/dL (8-23); C Reactive Protein 30.7 mg/L (0.0-4.9); Calcium 8.3 mg/dL (8.5-10.5); Carbon Dioxide 30 mmol/L (22-29); Chloride 101 mmol/L (98-107); Glomerular Filtration Rate 297.3 mL/min (90-130); Glucose 154 mg/dL (65-115); Osmolality Calculated 289 mOsm/kg (285-295); Potassium 3.7 mmol/L (3.5-5.1); Sodium 139 mmol/L (136-145)
[2021-01-13 12:00] LABS: Absolute Eosinophils 0.6 10^3/cmm (0.0-0.7); Absolute Segmented Neutrophil 4.6 10/cmm (1.6-7.1); Eosinophils 8 %; Lymphocytes 34 %; Monocytes Absolute 0.1 10^3/cmm (0.1-0.6); Segmented Neutrophils 55 %; Total Cells Counted 100 (0-100)
[2021-01-13 12:01] LABS: Absolute Neutrophil 4.6 10^3/cmm (1.4-6.5); Platelet Estimate Normal (Normal)
[2021-01-13 12:04] LABS: Erythrocyte Sedimentation Rate 52 mm/hr (0-10)
== END 2021-01-13 11:03 | disposition home or self-care (01) ==
PROVIDERS: PCP Family Medicine; Visit Provider Family Medicine
DX: M86.18 Other acute osteomyelitis, other site (principal)
CPT/HCPCS: 80048; 85007; 85027; 85651; 86140

== ENCOUNTER 2021-01-19 09:32 | Outpatient (CLI) | payer MEDICARE, SELFPAY | END 2021-01-19 09:33 | disposition home or self-care (01) | LOC: WOUND 09:33 | PROVIDERS: PCP Family Medicine; Visit Provider Thoracic Surgery (Cardiothoracic Vascular Surgery) | DX: L89.154 Pressure ulcer of sacral region, stage 4 (principal) | CPT/HCPCS: 11043; 11046; 97606 ==

== ENCOUNTER 2021-01-20 10:32 | Outpatient (CLI) | payer MEDICARE, SELFPAY ==
[2021-01-20 10:52] LABS: Basophils # 0.1 10^3/uL (0.0-0.1); Basophils % 0.8 %; Eosinophils # 0.5 10^3/uL (0.0-0.8); Eosinophils % 6.9 %; Hematocrit 37.2 % (42.0-52.0); Hemoglobin 11.3 g/dL (11.7-16.6); Lymphocytes # 1.8 10^3/uL (0.8-4.8); Lymphocytes % 27.3 %; Mean Corpuscular HGB Conc 30.4 g/dL (30.0-36.0); Mean Corpuscular Hemoglobin 24.7 pg (28.0-34.0); Mean Corpuscular Volume 81.4 fL (80-94); Mean Platelet Volume 9.2 fL (7.4-10.4); Monocytes # 0.4 10^3/uL (0.2-0.9); Monocytes % 5.6 %; Neutrophils # 3.92 10^3/uL (1.8-7.7); Neutrophils % 58.9 %; Nucleated Red Blood Cells % 0 %; Platelet Count 330 10^3/cmm (130-400); Red Blood Count 4.57 10^6/uL (4.1-5.3); Red Cell Distribution Width 17.4 % (12.1-15.1); White Blood Count 6.6 10^3/uL (4.0-10.0)
[2021-01-20 11:16] LABS: Anion Gap 11.2 (5-19); Blood Urea Nitrogen 8 mg/dL (8-23); C Reactive Protein 44.8 mg/L (0.0-4.9); Calcium 9.4 mg/dL (8.5-10.5); Carbon Dioxide 32 mmol/L (22-29); Chloride 98 mmol/L (98-107); Glomerular Filtration Rate 297.3 mL/min (90-130); Glucose 195 mg/dL (65-115); Osmolality Calculated 288 mOsm/kg (285-295); Potassium 4.2 mmol/L (3.5-5.1); Sodium 137 mmol/L (136-145)
[2021-01-20 12:02] LABS: Erythrocyte Sedimentation Rate 55 mm/hr (0-10)
== END 2021-01-20 10:33 | disposition home or self-care (01) ==
LOC: LAB 10:37
PROVIDERS: PCP Family Medicine; Visit Provider Family Medicine
DX: M86.18 Other acute osteomyelitis, other site (principal)
CPT/HCPCS: 80048; 85025; 85651; 86140

== ENCOUNTER 2021-01-26 09:03 | Outpatient (CLI) | payer MEDICARE, SELFPAY | END 2021-01-26 09:04 | disposition home or self-care (01) | LOC: WOUND 09:05 | PROVIDERS: PCP Family Medicine; Visit Provider Thoracic Surgery (Cardiothoracic Vascular Surgery) | DX: L89.154 Pressure ulcer of sacral region, stage 4 (principal) | CPT/HCPCS: 11043; 11046; 97606 ==

== ENCOUNTER 2021-01-27 11:18 | Outpatient (CLI) | payer MEDICARE, SELFPAY ==
[2021-01-27 11:32] LABS: Hematocrit 37.1 % (42.0-52.0); Hemoglobin 11.3 g/dL (11.7-16.6); Mean Corpuscular HGB Conc 30.5 g/dL (30.0-36.0); Mean Corpuscular Hemoglobin 25.3 pg (28.0-34.0); Mean Platelet Volume 9.9 fL (7.4-10.4); Platelet Count 282 10^3/cmm (130-400); Red Blood Count 4.47 10^6/uL (4.1-5.3); Red Cell Distribution Width 17.2 % (12.1-15.1); White Blood Count 7.9 10^3/uL (4.0-10.0)
[2021-01-27 11:49] LABS: Absolute Neutrophil 5.5 10^3/cmm (1.4-6.5); Absolute Segmented Neutrophil 5.5 10/cmm (1.6-7.1); Eosinophils 1 %; Lymphocytes 25 %; Monocytes Absolute 0.4 10^3/cmm (0.1-0.6); Platelet Estimate Normal (Normal); Segmented Neutrophils 69 %; Total Cells Counted 100 (0-100)
[2021-01-27 11:50] LABS: Blood Urea Nitrogen 8 mg/dL (8-23); C Reactive Protein 45.4 mg/L (0.0-4.9); Carbon Dioxide 29 mmol/L (22-29); Chloride 97 mmol/L (98-107); Glomerular Filtration Rate 297.3 mL/min (90-130); Glucose 267 mg/dL (65-115); Osmolality Calculated 294 mOsm/kg (285-295); Sodium 138 mmol/L (136-145)
[2021-01-27 12:05] LABS: Erythrocyte Sedimentation Rate 52 mm/hr (0-10)
== END 2021-01-27 11:19 | disposition home or self-care (01) ==
PROVIDERS: PCP Family Medicine; Visit Provider Family Medicine
DX: M86.18 Other acute osteomyelitis, other site (principal)
CPT/HCPCS: 80048; 85007; 85027; 85651; 86140

== ENCOUNTER 2021-02-02 09:59 | Outpatient (CLI) | payer MEDICARE, SELFPAY | END 2021-02-02 10:00 | disposition home or self-care (01) | LOC: WOUND 10:00 | PROVIDERS: PCP Family Medicine; Visit Provider Thoracic Surgery (Cardiothoracic Vascular Surgery) | DX: L89.154 Pressure ulcer of sacral region, stage 4 (principal) | CPT/HCPCS: 15271; 15272; 87070; 87077; 87176; 87186; 87205; 97606; Q4110 ==

== ENCOUNTER 2021-02-16 09:41 | Outpatient (CLI) | payer MEDICARE, SELFPAY | END 2021-02-16 09:42 | disposition home or self-care (01) | LOC: WOUND 09:42 | PROVIDERS: PCP Family Medicine; Visit Provider Thoracic Surgery (Cardiothoracic Vascular Surgery) | DX: I96 Gangrene, not elsewhere classified (principal); L89.154 Pressure ulcer of sacral region, stage 4 | CPT/HCPCS: 15271; 15272; 97605; Q4110 ==

== ENCOUNTER 2021-02-23 10:50 | Outpatient (CLI) | payer MEDICARE, SELFPAY | END 2021-02-23 10:51 | disposition home or self-care (01) | LOC: WOUND 10:51 | PROVIDERS: PCP Family Medicine; Visit Provider Nurse Practitioner Family | DX: I96 Gangrene, not elsewhere classified (principal); L89.154 Pressure ulcer of sacral region, stage 4 | CPT/HCPCS: 11042; 11045; 97606 ==

== ENCOUNTER 2021-03-02 10:45 | Outpatient (CLI) | payer MEDICARE, SELFPAY | END 2021-03-02 10:46 | disposition home or self-care (01) | LOC: WOUND 10:46 | PROVIDERS: PCP Family Medicine; Visit Provider Thoracic Surgery (Cardiothoracic Vascular Surgery) | DX: I96 Gangrene, not elsewhere classified (principal); L89.154 Pressure ulcer of sacral region, stage 4; Z87.891 Personal history of nicotine dependence | CPT/HCPCS: 11042; 11045 ==

== ENCOUNTER 2021-03-09 09:48 | Outpatient (CLI) | payer MEDICARE, SELFPAY | END 2021-03-09 09:49 | disposition home or self-care (01) | LOC: WOUND 09:49 | PROVIDERS: PCP Family Medicine; Visit Provider Emergency Medicine | DX: I96 Gangrene, not elsewhere classified (principal); L89.154 Pressure ulcer of sacral region, stage 4 | CPT/HCPCS: 11044; 11047; 97605 ==

== ENCOUNTER 2021-03-17 09:51 | Outpatient (CLI) | payer MEDICARE, SELFPAY | END 2021-03-17 09:52 | disposition home or self-care (01) | LOC: WOUND 09:52 | PROVIDERS: PCP Family Medicine; Visit Provider Thoracic Surgery (Cardiothoracic Vascular Surgery) | DX: I96 Gangrene, not elsewhere classified (principal); L89.154 Pressure ulcer of sacral region, stage 4; Z87.891 Personal history of nicotine dependence | CPT/HCPCS: 11042; 11045 ==

== ENCOUNTER 2021-03-24 10:37 | Outpatient (CLI) | payer MEDICARE, SELFPAY | END 2021-03-24 10:38 | disposition home or self-care (01) | LOC: WOUND 10:39 | PROVIDERS: PCP Family Medicine; Visit Provider Nurse Practitioner Family | DX: I96 Gangrene, not elsewhere classified (principal); L89.154 Pressure ulcer of sacral region, stage 4; Z87.891 Personal history of nicotine dependence | CPT/HCPCS: 11042; 11045 ==

== ENCOUNTER 2021-03-31 10:52 | Outpatient (CLI) | payer MEDICARE, SELFPAY | END 2021-03-31 10:53 | disposition home or self-care (01) | LOC: WOUND 10:53 | PROVIDERS: PCP Family Medicine; Visit Provider Thoracic Surgery (Cardiothoracic Vascular Surgery) | DX: I96 Gangrene, not elsewhere classified (principal); L89.154 Pressure ulcer of sacral region, stage 4; Z87.891 Personal history of nicotine dependence | CPT/HCPCS: 11042; 11045 ==

== ENCOUNTER 2021-04-07 11:04 | Outpatient (CLI) | payer MEDICARE, SELFPAY | END 2021-04-07 11:05 | disposition home or self-care (01) | LOC: WOUND 11:05 | PROVIDERS: PCP Family Medicine; Visit Provider Thoracic Surgery (Cardiothoracic Vascular Surgery) | DX: I96 Gangrene, not elsewhere classified (principal); L89.154 Pressure ulcer of sacral region, stage 4; Z87.891 Personal history of nicotine dependence | CPT/HCPCS: 11042; 11045 ==

== ENCOUNTER 2021-04-14 11:08 | Outpatient (CLI) | payer MEDICARE, SELFPAY | END 2021-04-14 11:09 | disposition home or self-care (01) | LOC: WOUND 11:09 | PROVIDERS: PCP Family Medicine; Visit Provider Nurse Practitioner Family | DX: I96 Gangrene, not elsewhere classified (principal); L89.154 Pressure ulcer of sacral region, stage 4; E11.9 Type 2 diabetes mellitus without complications; Z87.891 Personal history of nicotine dependence | CPT/HCPCS: 11042; 11045; 97605; A6237 ==

== ENCOUNTER 2021-04-21 10:26 | Outpatient (CLI) | payer MEDICARE, SELFPAY | END 2021-04-21 10:27 | disposition home or self-care (01) | LOC: WOUND 10:27 | PROVIDERS: PCP Family Medicine; Visit Provider Thoracic Surgery (Cardiothoracic Vascular Surgery) | DX: I96 Gangrene, not elsewhere classified (principal); L89.154 Pressure ulcer of sacral region, stage 4; Z87.891 Personal history of nicotine dependence | CPT/HCPCS: 11042; 11045 ==

== ENCOUNTER 2021-04-28 10:18 | Outpatient (CLI) | payer MEDICARE, SELFPAY | END 2021-04-28 10:19 | disposition home or self-care (01) | LOC: WOUND 10:22 | PROVIDERS: PCP Family Medicine; Visit Provider Thoracic Surgery (Cardiothoracic Vascular Surgery) | DX: I96 Gangrene, not elsewhere classified (principal); L89.154 Pressure ulcer of sacral region, stage 4; Z87.891 Personal history of nicotine dependence | CPT/HCPCS: 11042; 11045; A6237; A6250 ==

== ENCOUNTER 2021-05-05 10:33 | Outpatient (CLI) | payer MEDICARE, SELFPAY | END 2021-05-05 10:34 | disposition home or self-care (01) | LOC: WOUND 10:34 | PROVIDERS: PCP Family Medicine; Visit Provider Thoracic Surgery (Cardiothoracic Vascular Surgery) | DX: I96 Gangrene, not elsewhere classified (principal); L89.154 Pressure ulcer of sacral region, stage 4; E11.9 Type 2 diabetes mellitus without complications; Z87.891 Personal history of nicotine dependence | CPT/HCPCS: 11042; 11045; A6250 ==

== ENCOUNTER 2021-05-12 11:03 | Outpatient (CLI) | payer MEDICARE, SELFPAY | END 2021-05-12 11:04 | disposition home or self-care (01) | LOC: WOUND 11:04 | PROVIDERS: PCP Family Medicine; Visit Provider Thoracic Surgery (Cardiothoracic Vascular Surgery) | DX: I96 Gangrene, not elsewhere classified (principal); L89.154 Pressure ulcer of sacral region, stage 4; Z87.891 Personal history of nicotine dependence | CPT/HCPCS: 11042; 11045; A6250 ==

== ENCOUNTER 2021-05-19 13:18 | Outpatient (CLI) | payer MEDICARE, SELFPAY | END 2021-05-19 13:19 | disposition home or self-care (01) | LOC: WOUND 13:19 | PROVIDERS: PCP Family Medicine; Visit Provider Nurse Practitioner Family | DX: I96 Gangrene, not elsewhere classified (principal); L89.154 Pressure ulcer of sacral region, stage 4; E11.9 Type 2 diabetes mellitus without complications | CPT/HCPCS: G0463 ==

== ENCOUNTER 2021-05-25 10:40 | Outpatient (CLI) | payer MEDICARE, SELFPAY | END 2021-05-25 10:41 | disposition home or self-care (01) | LOC: WOUND 10:41 | PROVIDERS: PCP Family Medicine; Visit Provider Thoracic Surgery (Cardiothoracic Vascular Surgery) | DX: I96 Gangrene, not elsewhere classified (principal); L89.154 Pressure ulcer of sacral region, stage 4; Z87.891 Personal history of nicotine dependence | CPT/HCPCS: 11042; 11045; 97605; A6250 ==

== ENCOUNTER 2021-06-02 10:34 | Outpatient (CLI) | payer MEDICARE, SELFPAY | END 2021-06-02 10:35 | disposition home or self-care (01) | LOC: WOUND 10:35 | PROVIDERS: PCP Family Medicine; Visit Provider Thoracic Surgery (Cardiothoracic Vascular Surgery) | DX: I96 Gangrene, not elsewhere classified (principal); L89.154 Pressure ulcer of sacral region, stage 4; Z87.891 Personal history of nicotine dependence | CPT/HCPCS: 11043; 11046; A6250 ==

== ENCOUNTER 2021-06-09 10:30 | Outpatient (CLI) | payer MEDICARE, SELFPAY | END 2021-06-09 10:31 | disposition home or self-care (01) | LOC: WOUND 10:31 | PROVIDERS: PCP Family Medicine; Visit Provider Thoracic Surgery (Cardiothoracic Vascular Surgery) | DX: I96 Gangrene, not elsewhere classified (principal); L89.154 Pressure ulcer of sacral region, stage 4; Z87.891 Personal history of nicotine dependence | CPT/HCPCS: 11042; 11045; 97605; A6250 ==

== ENCOUNTER 2021-06-16 10:33 | Outpatient (CLI) | payer MEDICARE, SELFPAY | END 2021-06-16 10:34 | disposition home or self-care (01) | LOC: WOUND 10:34 | PROVIDERS: PCP Family Medicine; Visit Provider Nurse Practitioner Family | DX: I96 Gangrene, not elsewhere classified (principal); L89.154 Pressure ulcer of sacral region, stage 4; I10 Essential (primary) hypertension; Z87.891 Personal history of nicotine dependence | CPT/HCPCS: 11042; 11045 ==

== ENCOUNTER 2021-06-30 10:20 | Outpatient (CLI) | payer MEDICARE, SELFPAY | END 2021-06-30 10:21 | disposition home or self-care (01) | LOC: WOUND 10:21 | PROVIDERS: PCP Family Medicine; Visit Provider Nurse Practitioner Family | DX: I96 Gangrene, not elsewhere classified (principal); L89.154 Pressure ulcer of sacral region, stage 4; Z87.891 Personal history of nicotine dependence; E11.9 Type 2 diabetes mellitus without complications | CPT/HCPCS: 11042; 11045 ==

== ENCOUNTER 2021-07-07 12:59 | Outpatient (CLI) | payer MEDICARE, SELFPAY | END 2021-07-07 13:00 | disposition home or self-care (01) | LOC: WOUND 13:00 | PROVIDERS: PCP Family Medicine; Visit Provider Thoracic Surgery (Cardiothoracic Vascular Surgery) | DX: I96 Gangrene, not elsewhere classified (principal); L89.154 Pressure ulcer of sacral region, stage 4; Z87.891 Personal history of nicotine dependence | CPT/HCPCS: 11042; 11045 ==

== ENCOUNTER 2021-07-13 09:56 | Outpatient (CLI) | payer MEDICARE, SELFPAY | END 2021-07-13 09:57 | disposition home or self-care (01) | LOC: WOUND 09:57 | PROVIDERS: PCP Family Medicine; Visit Provider Thoracic Surgery (Cardiothoracic Vascular Surgery) | DX: I96 Gangrene, not elsewhere classified (principal); L89.154 Pressure ulcer of sacral region, stage 4; E11.9 Type 2 diabetes mellitus without complications; Z87.891 Personal history of nicotine dependence | CPT/HCPCS: 11042; 11045 ==

== ENCOUNTER 2021-08-04 09:49 | Outpatient (CLI) | payer MEDICARE, SELFPAY | END 2021-08-04 09:50 | disposition home or self-care (01) | LOC: WOUND 09:51 | PROVIDERS: PCP Family Medicine; Visit Provider Thoracic Surgery (Cardiothoracic Vascular Surgery) | DX: I96 Gangrene, not elsewhere classified (principal); L89.154 Pressure ulcer of sacral region, stage 4; Z87.891 Personal history of nicotine dependence | CPT/HCPCS: 11042; 11045 ==

== ENCOUNTER → 2021-08-06 15:30 | Outpatient (BNVA) | payer MEDICARE, SELFPAY | PROVIDERS: PCP Family Medicine; Visit Provider Nurse Practitioner Family | DX: Z20.822 Contact with and (suspected) exposure to COVID-19 (principal) | CPT/HCPCS: 87635 ==

== ENCOUNTER 2021-08-10 08:19 | Outpatient (CLI) | payer MEDICARE, SELFPAY ==
[2021-08-10 08:33] VITALS: BP 127/64; PULSE 92; RESP 19; TEMP 36.8; O2SAT 98; BMI 22.0
[2021-08-10 09:18] VITALS: BP 109/63; PULSE 72; RESP 18; TEMP 36.8; O2SAT 98
[2021-08-10 10:14] VITALS: BP 109/62; PULSE 72; RESP 18; TEMP 36.9; O2SAT 98
== END 2021-08-10 08:20 | disposition home or self-care (01) ==
LOC: OPS 08:23
PROVIDERS: PCP Family Medicine; Visit Provider Nurse Practitioner Family
DX: U07.1 COVID-19 (principal)
CPT/HCPCS: 96365

== ENCOUNTER 2021-09-01 09:56 | Outpatient (CLI) | payer MEDICARE, SELFPAY | END 2021-09-01 09:57 | disposition home or self-care (01) | LOC: WOUND 09:57 | PROVIDERS: PCP Family Medicine; Visit Provider Thoracic Surgery (Cardiothoracic Vascular Surgery) | DX: I96 Gangrene, not elsewhere classified (principal); L89.154 Pressure ulcer of sacral region, stage 4; E11.9 Type 2 diabetes mellitus without complications; Z87.891 Personal history of nicotine dependence | CPT/HCPCS: 11042; 11045 ==

== ENCOUNTER 2021-09-29 09:59 | Outpatient (CLI) | payer MEDICARE, SELFPAY | END 2021-09-29 10:00 | disposition home or self-care (01) | LOC: WOUND 10:01 | PROVIDERS: PCP Family Medicine; Visit Provider Thoracic Surgery (Cardiothoracic Vascular Surgery) | DX: I96 Gangrene, not elsewhere classified (principal); L89.154 Pressure ulcer of sacral region, stage 4; Z87.891 Personal history of nicotine dependence | CPT/HCPCS: 97597; 97598; A6021 ==

== ENCOUNTER → 2021-11-03 09:41 | Outpatient (BNVA) | payer MEDICARE, SELFPAY | PROVIDERS: PCP Family Medicine; Visit Provider Thoracic Surgery (Cardiothoracic Vascular Surgery) | DX: I96 Gangrene, not elsewhere classified (principal); L89.154 Pressure ulcer of sacral region, stage 4; F17.210 Nicotine dependence, cigarettes, uncomplicated | CPT/HCPCS: 97597; A6021 ==

== ENCOUNTER → 2021-12-08 09:50 | Outpatient (BNVA) | payer MEDICARE, SELFPAY | PROVIDERS: PCP Family Medicine; Visit Provider Thoracic Surgery (Cardiothoracic Vascular Surgery) | DX: I96 Gangrene, not elsewhere classified (principal); L89.154 Pressure ulcer of sacral region, stage 4; Z87.891 Personal history of nicotine dependence | CPT/HCPCS: 97597; A6021 ==

== ENCOUNTER → 2022-01-05 09:33 | Outpatient (BNVA) | payer MEDICARE, SELFPAY | PROVIDERS: PCP Family Medicine; Visit Provider Nurse Practitioner Family | DX: L89.154 Pressure ulcer of sacral region, stage 4 (principal) | CPT/HCPCS: 97597; A6197 ==

== ENCOUNTER → 2022-02-02 09:48 | Outpatient (BNVA) | payer MEDICARE, SELFPAY | PROVIDERS: PCP Family Medicine; Visit Provider Thoracic Surgery (Cardiothoracic Vascular Surgery) | DX: L89.154 Pressure ulcer of sacral region, stage 4 (principal) | CPT/HCPCS: 97597; A6021 ==

== ENCOUNTER → 2022-03-02 09:40 | Outpatient (BNVA) | payer MEDICARE, SELFPAY | PROVIDERS: PCP Family Medicine; Visit Provider Nurse Practitioner Family | DX: L89.154 Pressure ulcer of sacral region, stage 4 (principal) | CPT/HCPCS: 11042; A6021; A6212 ==

== ENCOUNTER → 2022-04-06 09:50 | Outpatient (BNVA) | payer MEDICARE, SELFPAY | PROVIDERS: PCP Family Medicine; Visit Provider Thoracic Surgery (Cardiothoracic Vascular Surgery) | DX: L89.154 Pressure ulcer of sacral region, stage 4 (principal) | CPT/HCPCS: 97597; A6021 ==

== ENCOUNTER → 2022-04-26 13:45 | Outpatient (BNVA) | payer MEDICARE, SELFPAY | PROVIDERS: PCP Family Medicine; Visit Provider Nurse Practitioner Family | DX: N39.0 Urinary tract infection, site not specified (principal) | CPT/HCPCS: 81000; 87077; 87086; 87184 ==

== ENCOUNTER → 2022-05-11 09:35 | Outpatient (BNVA) | payer MEDICARE, SELFPAY | PROVIDERS: PCP Family Medicine; Visit Provider Thoracic Surgery (Cardiothoracic Vascular Surgery) | DX: L89.154 Pressure ulcer of sacral region, stage 4 (principal); L89.890 Pressure ulcer of other site, unstageable | CPT/HCPCS: 11042; A6021 ==

== ENCOUNTER → 2022-05-25 14:43 | Outpatient (BNVA) | payer MEDICARE, SELFPAY | PROVIDERS: PCP Family Medicine; Visit Provider Thoracic Surgery (Cardiothoracic Vascular Surgery) | DX: I96 Gangrene, not elsewhere classified (principal); L89.154 Pressure ulcer of sacral region, stage 4; L89.610 Pressure ulcer of right heel, unstageable | CPT/HCPCS: 11042; A6021; A6212; A6213 ==

== ENCOUNTER → 2022-06-22 09:34 | Outpatient (BNVA) | payer MEDICARE, SELFPAY | PROVIDERS: PCP Family Medicine; Visit Provider Nurse Practitioner Family | DX: L89.154 Pressure ulcer of sacral region, stage 4 (principal); Z09 Encounter for follow-up examination after completed treatment for conditions other than malignant neoplasm | CPT/HCPCS: 11042; A6021; A6212 ==

== ENCOUNTER → 2022-07-20 09:52 | Outpatient (BNVA) | payer MEDICARE, SELFPAY | PROVIDERS: PCP Family Medicine; Visit Provider Thoracic Surgery (Cardiothoracic Vascular Surgery) | DX: L89.154 Pressure ulcer of sacral region, stage 4 (principal) | CPT/HCPCS: 11042; A6021 ==

== ENCOUNTER → 2022-08-11 11:33 | Outpatient (BNVA) | payer MEDICARE, SELFPAY | PROVIDERS: PCP Family Medicine; Visit Provider Clinical Nurse Specialist Adult Health | DX: N30.01 Acute cystitis with hematuria (principal) | CPT/HCPCS: 81000; 87077; 87086; 87184 ==

== ENCOUNTER → 2022-08-31 09:45 | Outpatient (BNVA) | payer MEDICARE, SELFPAY | PROVIDERS: PCP Family Medicine; Visit Provider Thoracic Surgery (Cardiothoracic Vascular Surgery) | DX: L89.154 Pressure ulcer of sacral region, stage 4 (principal) | CPT/HCPCS: 97597; A6021; A6212 ==

== ENCOUNTER → 2022-09-28 09:41 | Outpatient (BNVA) | payer MEDICARE, SELFPAY | PROVIDERS: PCP Family Medicine; Visit Provider Thoracic Surgery (Cardiothoracic Vascular Surgery) | DX: I96 Gangrene, not elsewhere classified (principal); L89.154 Pressure ulcer of sacral region, stage 4; L89.322 Pressure ulcer of left buttock, stage 2 | CPT/HCPCS: 11042; 97597; A6197; A6212 ==

== ENCOUNTER → 2022-11-02 09:23 | Outpatient (BNVA) | payer MEDICARE, SELFPAY | PROVIDERS: PCP Family Medicine; Visit Provider Thoracic Surgery (Cardiothoracic Vascular Surgery) | DX: L89.153 Pressure ulcer of sacral region, stage 3 (principal); L89.322 Pressure ulcer of left buttock, stage 2; L89.312 Pressure ulcer of right buttock, stage 2 | CPT/HCPCS: 11042; 97597; A6021; A6212 ==

== ENCOUNTER → 2022-11-16 09:26 | Outpatient (BNVA) | payer MEDICARE, SELFPAY | PROVIDERS: PCP Family Medicine; Visit Provider Thoracic Surgery (Cardiothoracic Vascular Surgery) | DX: L89.322 Pressure ulcer of left buttock, stage 2 (principal); Z09 Encounter for follow-up examination after completed treatment for conditions other than malignant neoplasm | CPT/HCPCS: 97597; A6021; A6212 ==

== ENCOUNTER → 2022-12-14 09:46 | Outpatient (BNVA) | payer MEDICARE, SELFPAY | PROVIDERS: PCP Family Medicine; Visit Provider Thoracic Surgery (Cardiothoracic Vascular Surgery) | DX: I96 Gangrene, not elsewhere classified (principal); L89.322 Pressure ulcer of left buttock, stage 2 | CPT/HCPCS: 97597; A6021; A6212 ==

== ENCOUNTER → 2022-12-28 09:10 | Outpatient (BNVA) | payer MEDICARE, SELFPAY | PROVIDERS: PCP Family Medicine; Visit Provider Thoracic Surgery (Cardiothoracic Vascular Surgery) | DX: I96 Gangrene, not elsewhere classified (principal); L89.322 Pressure ulcer of left buttock, stage 2 | CPT/HCPCS: 97597; A6021; A6212 ×2 ==

== ENCOUNTER → 2023-01-11 09:02 | Outpatient (BNVA) | payer MEDICARE, SELFPAY | PROVIDERS: PCP Family Medicine; Visit Provider Thoracic Surgery (Cardiothoracic Vascular Surgery) | DX: I96 Gangrene, not elsewhere classified (principal); L89.322 Pressure ulcer of left buttock, stage 2 | CPT/HCPCS: 97597; A6021; A6212 ==

== ENCOUNTER → 2023-01-25 09:27 | Outpatient (BNVA) | payer MEDICARE, SELFPAY | PROVIDERS: PCP Family Medicine; Visit Provider Thoracic Surgery (Cardiothoracic Vascular Surgery) | DX: I96 Gangrene, not elsewhere classified (principal); L89.322 Pressure ulcer of left buttock, stage 2; L97.512 Non-pressure chronic ulcer of other part of right foot with fat layer exposed | CPT/HCPCS: 97597; A6021; A6212 ==

== ENCOUNTER → 2023-02-08 09:50 | Outpatient (BNVA) | payer MEDICARE, SELFPAY | PROVIDERS: PCP Family Medicine; Visit Provider Thoracic Surgery (Cardiothoracic Vascular Surgery) | DX: I96 Gangrene, not elsewhere classified (principal); L89.322 Pressure ulcer of left buttock, stage 2; L89.152 Pressure ulcer of sacral region, stage 2; L97.512 Non-pressure chronic ulcer of other part of right foot with fat layer exposed | CPT/HCPCS: 11042; 97597; A6212 ==

== ENCOUNTER → 2023-02-22 09:49 | Outpatient (BNVA) | payer MEDICARE, SELFPAY | PROVIDERS: PCP Family Medicine; Visit Provider Thoracic Surgery (Cardiothoracic Vascular Surgery) | DX: I96 Gangrene, not elsewhere classified (principal); L89.152 Pressure ulcer of sacral region, stage 2; Z09 Encounter for follow-up examination after completed treatment for conditions other than malignant neoplasm | CPT/HCPCS: 97597; A6021 ==

== ENCOUNTER → 2023-03-08 10:04 | Outpatient (BNVA) | payer MEDICARE, SELFPAY | PROVIDERS: PCP Family Medicine; Visit Provider Thoracic Surgery (Cardiothoracic Vascular Surgery) | DX: I96 Gangrene, not elsewhere classified (principal); L89.152 Pressure ulcer of sacral region, stage 2 | CPT/HCPCS: 97597; A6021 ==

== ENCOUNTER → 2023-03-22 09:34 | Outpatient (BNVA) | payer MEDICARE, SELFPAY | PROVIDERS: PCP Family Medicine; Visit Provider Thoracic Surgery (Cardiothoracic Vascular Surgery) | DX: I96 Gangrene, not elsewhere classified (principal); L89.152 Pressure ulcer of sacral region, stage 2 | CPT/HCPCS: 97597; A6021 ==

== ENCOUNTER → 2023-03-28 09:43 | Outpatient (BNVA) | payer MEDICARE, SELFPAY | PROVIDERS: PCP Family Medicine; Visit Provider Podiatrist Foot & Ankle Surgery | DX: L60.0 Ingrowing nail (principal); L03.90 Cellulitis, unspecified | CPT/HCPCS: 11730; 99203 ==

== ENCOUNTER → 2023-04-11 09:48 | Outpatient (BNVA) | payer MEDICARE, SELFPAY | PROVIDERS: PCP Family Medicine; Visit Provider Podiatrist Foot & Ankle Surgery | DX: L03.90 Cellulitis, unspecified (principal); L60.0 Ingrowing nail | CPT/HCPCS: 99213 ==

== ENCOUNTER → 2023-04-12 09:36 | Outpatient (BNVA) | payer MEDICARE, SELFPAY | PROVIDERS: PCP Family Medicine; Visit Provider Thoracic Surgery (Cardiothoracic Vascular Surgery) | DX: I96 Gangrene, not elsewhere classified (principal); L89.152 Pressure ulcer of sacral region, stage 2 | CPT/HCPCS: 97597; A6021 ==

== ENCOUNTER → 2023-04-26 09:39 | Outpatient (BNVA) | payer MEDICARE, SELFPAY | PROVIDERS: PCP Family Medicine; Visit Provider Thoracic Surgery (Cardiothoracic Vascular Surgery) | DX: I96 Gangrene, not elsewhere classified (principal); L89.152 Pressure ulcer of sacral region, stage 2 | CPT/HCPCS: 97597 ==

== ENCOUNTER → 2023-05-10 09:08 | Outpatient (BNVA) | payer MEDICARE, SELFPAY | PROVIDERS: PCP Family Medicine; Visit Provider Thoracic Surgery (Cardiothoracic Vascular Surgery) | DX: L89.152 Pressure ulcer of sacral region, stage 2 (principal) | CPT/HCPCS: 97597 ==

== ENCOUNTER → 2023-05-24 09:51 | Outpatient (BNVA) | payer MEDICARE, SELFPAY | PROVIDERS: PCP Family Medicine; Visit Provider Nurse Practitioner Family | DX: L89.152 Pressure ulcer of sacral region, stage 2 (principal); L89.322 Pressure ulcer of left buttock, stage 2 | CPT/HCPCS: 97597; A6021; A6212 ==

== ENCOUNTER → 2023-06-07 09:21 | Outpatient (BNVA) | payer MEDICARE, SELFPAY | PROVIDERS: PCP Family Medicine; Visit Provider Thoracic Surgery (Cardiothoracic Vascular Surgery) | DX: Z09 Encounter for follow-up examination after completed treatment for conditions other than malignant neoplasm (principal); Z87.2 Personal history of diseases of the skin and subcutaneous tissue | CPT/HCPCS: 99212 ==

== ENCOUNTER → 2023-07-18 14:04 | Outpatient (BNVA) | payer MEDICARE, SELFPAY | PROVIDERS: PCP Family Medicine; Visit Provider Podiatrist Foot & Ankle Surgery | DX: L60.0 Ingrowing nail (principal); L03.90 Cellulitis, unspecified | CPT/HCPCS: 11750; A6219 ==

== ENCOUNTER → 2023-08-08 10:34 | Outpatient (BNVA) | payer MEDICARE, SELFPAY | PROVIDERS: PCP Family Medicine; Visit Provider Podiatrist Foot & Ankle Surgery | DX: L60.0 Ingrowing nail (principal); L03.90 Cellulitis, unspecified | CPT/HCPCS: 99213 ==

== ENCOUNTER → 2023-09-18 13:28 | Outpatient (BNVA) | payer MEDICARE, SELFPAY | PROVIDERS: PCP Family Medicine; Visit Provider Podiatrist Foot & Ankle Surgery | DX: L60.3 Nail dystrophy (principal); I73.9 Peripheral vascular disease, unspecified; G62.9 Polyneuropathy, unspecified; E11.42 Type 2 diabetes mellitus with diabetic polyneuropathy; Z79.84 Long term (current) use of oral hypoglycemic drugs | CPT/HCPCS: 11721 ==

== ENCOUNTER 2024-03-27 09:48 | Emergency (ER) | payer MEDICARE, SELFPAY ==
--- NOTE | 2024-03-27 09:53 | XR_ITS ---
WS: [email or web address] Exam: XR foot RT min 3V* [id number] Date/Time of Exam: 03/27/2024 10:25 AM Reason For Exam: injury No acute fracture or dislocation. Advanced degenerative joint changes throughout the foot. Severe dem ineralization of bone. Vascular calcifications about the foot and ankle. Bimalleolar hardware in plac e as noted previously. No soft tissue foreign bodies. XR/XR foot RT min 3V* [id number] IMPRESSION: 1. No acute fracture. 2. Moderately advanced degenerative changes and severe osteopenia.
--- NOTE | 2024-03-27 09:53 | XR_ITS ---
WS: [email or web address] Exam: XR ankle RT min 3V* [id number] Date/Time of Exam: 03/27/2024 9:53 AM Reason For Exam: injury No acute fracture or dislocation. Healed bimalleolar fracture with internal fixation noted. Moderatel y severe degenerative change of the ankle mortise. Severe osteopenia. XR/XR ankle RT min 3V* [id number] IMPRESSION: 1. No acute fracture.
[2024-03-27 10:05] VITALS: BP 149/80; PULSE 72; RESP 18; TEMP 36.9; O2SAT 95; BMI 22.9
[2024-03-27 10:13] VITALS: BP 149/80; PULSE 72; RESP 18; TEMP 36.9; O2SAT 95
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
[2024-03-27 10:51] VITALS: BP 136/82; PULSE 74; O2SAT 96
== END 2024-03-27 10:52 | disposition home or self-care (01) ==
PROVIDERS: Emergency Provider Emergency Medicine; PCP Family Medicine
DX: L03.115 Cellulitis of right lower limb (principal); G82.20 Paraplegia, unspecified; Z79.02 Long term (current) use of antithrombotics/antiplatelets; Z79.82 Long term (current) use of aspirin; Z79.84 Long term (current) use of oral hypoglycemic drugs; I25.10 Atherosclerotic heart disease of native coronary artery without angina pectoris; I10 Essential (primary) hypertension; E78.5 Hyperlipidemia, unspecified; Z95.1 Presence of aortocoronary bypass graft; Z87.891 Personal history of nicotine dependence
CPT/HCPCS: 73610; 73630; 99283

== ENCOUNTER → 2024-08-28 13:08 | Outpatient (BNVA) | payer MEDICARE, SELFPAY | PROVIDERS: PCP Family Medicine; Visit Provider Thoracic Surgery (Cardiothoracic Vascular Surgery) | DX: I96 Gangrene, not elsewhere classified (principal); L89.623 Pressure ulcer of left heel, stage 3; T24.022A Burn of unspecified degree of left knee, initial encounter; X16.XXXA Contact with hot heating appliances, radiators and pipes, initial encounter | CPT/HCPCS: 11042; 99203; A6210; A6212 ==

== ENCOUNTER → 2024-09-04 14:38 | Outpatient (BNVA) | payer MEDICARE, SELFPAY | PROVIDERS: PCP Family Medicine; Visit Provider Thoracic Surgery (Cardiothoracic Vascular Surgery) | DX: I96 Gangrene, not elsewhere classified (principal); L89.622 Pressure ulcer of left heel, stage 2; L98.491 Non-pressure chronic ulcer of skin of other sites limited to breakdown of skin | CPT/HCPCS: 97597; A6210; A6212 ==

== ENCOUNTER → 2024-09-11 14:06 | Outpatient (BNVA) | payer MEDICARE, SELFPAY | PROVIDERS: PCP Family Medicine; Visit Provider Thoracic Surgery (Cardiothoracic Vascular Surgery) | DX: I96 Gangrene, not elsewhere classified (principal); L89.622 Pressure ulcer of left heel, stage 2; T24.022D Burn of unspecified degree of left knee, subsequent encounter; X16.XXXD Contact with hot heating appliances, radiators and pipes, subsequent encounter | CPT/HCPCS: 97597; A6210; A6212 ==

== ENCOUNTER → 2024-09-25 15:02 | Outpatient (BNVA) | payer MEDICARE, SELFPAY | PROVIDERS: PCP Family Medicine; Visit Provider Thoracic Surgery (Cardiothoracic Vascular Surgery) | DX: I96 Gangrene, not elsewhere classified (principal); L89.512 Pressure ulcer of right ankle, stage 2; L89.622 Pressure ulcer of left heel, stage 2; T24.022D Burn of unspecified degree of left knee, subsequent encounter; X16.XXXD Contact with hot heating appliances, radiators and pipes, subsequent encounter | CPT/HCPCS: 97597; A6210; A6248 ==

== ENCOUNTER → 2024-10-09 14:21 | Outpatient (BNVA) | payer MEDICARE, SELFPAY | PROVIDERS: PCP Family Medicine; Visit Provider Thoracic Surgery (Cardiothoracic Vascular Surgery) | DX: I96 Gangrene, not elsewhere classified (principal); L89.622 Pressure ulcer of left heel, stage 2; Z09 Encounter for follow-up examination after completed treatment for conditions other than malignant neoplasm | CPT/HCPCS: 97597; A6210 ==

== ENCOUNTER → 2024-10-23 14:02 | Outpatient (BNVA) | payer MEDICARE, SELFPAY | PROVIDERS: PCP Family Medicine; Visit Provider Thoracic Surgery (Cardiothoracic Vascular Surgery) | DX: I96 Gangrene, not elsewhere classified (principal); L89.612 Pressure ulcer of right heel, stage 2; L89.622 Pressure ulcer of left heel, stage 2 | CPT/HCPCS: 97597; A6210; A6213; A6219 ==

== ENCOUNTER → 2024-11-13 13:27 | Outpatient (BNVA) | payer MEDICARE, SELFPAY | PROVIDERS: PCP Family Medicine | DX: I96 Gangrene, not elsewhere classified (principal); L89.612 Pressure ulcer of right heel, stage 2; L89.622 Pressure ulcer of left heel, stage 2 | CPT/HCPCS: 97597; A6212 ==

== ENCOUNTER → 2024-11-20 13:39 | Outpatient (BNVA) | payer MEDICARE, SELFPAY | PROVIDERS: PCP Family Medicine; Visit Provider Thoracic Surgery (Cardiothoracic Vascular Surgery) | DX: I96 Gangrene, not elsewhere classified (principal); L89.612 Pressure ulcer of right heel, stage 2; L89.512 Pressure ulcer of right ankle, stage 2; L89.622 Pressure ulcer of left heel, stage 2 | CPT/HCPCS: 11042; 97597; A6212; A6446 ==

== ENCOUNTER → 2024-11-27 13:31 | Outpatient (BNVA) | payer MEDICARE, SELFPAY | PROVIDERS: PCP Family Medicine; Visit Provider Thoracic Surgery (Cardiothoracic Vascular Surgery) | DX: I96 Gangrene, not elsewhere classified (principal); L89.612 Pressure ulcer of right heel, stage 2; L89.512 Pressure ulcer of right ankle, stage 2; L89.522 Pressure ulcer of left ankle, stage 2; L89.622 Pressure ulcer of left heel, stage 2 | CPT/HCPCS: 97597; A6248 ==

== ENCOUNTER → 2024-12-04 15:07 | Outpatient (BNVA) | payer MEDICARE, SELFPAY | PROVIDERS: PCP Family Medicine; Visit Provider Thoracic Surgery (Cardiothoracic Vascular Surgery) | DX: I96 Gangrene, not elsewhere classified (principal); L89.612 Pressure ulcer of right heel, stage 2 | CPT/HCPCS: 11042 ==

== ENCOUNTER → 2024-12-10 14:57 | Outpatient (BNVA) | payer MEDICARE, SELFPAY | PROVIDERS: PCP Family Medicine; Visit Provider Thoracic Surgery (Cardiothoracic Vascular Surgery) | DX: I96 Gangrene, not elsewhere classified (principal); L89.612 Pressure ulcer of right heel, stage 2; L89.522 Pressure ulcer of left ankle, stage 2; L89.512 Pressure ulcer of right ankle, stage 2; L89.622 Pressure ulcer of left heel, stage 2 | CPT/HCPCS: 99214 ==

== ENCOUNTER → 2024-12-17 14:17 | Outpatient (BNVA) | payer MEDICARE, SELFPAY | PROVIDERS: PCP Family Medicine; Visit Provider Thoracic Surgery (Cardiothoracic Vascular Surgery) | DX: I96 Gangrene, not elsewhere classified (principal); G82.20 Paraplegia, unspecified; L89.513 Pressure ulcer of right ankle, stage 3; L89.612 Pressure ulcer of right heel, stage 2; L89.522 Pressure ulcer of left ankle, stage 2; L89.622 Pressure ulcer of left heel, stage 2 | CPT/HCPCS: 11042; 11045; 87070; 87075; 87205 ==

== ENCOUNTER → 2024-12-25 13:12 | Outpatient (BNVA) | payer MEDICARE, SELFPAY | PROVIDERS: PCP Family Medicine; Visit Provider Thoracic Surgery (Cardiothoracic Vascular Surgery) | DX: I96 Gangrene, not elsewhere classified (principal); L89.612 Pressure ulcer of right heel, stage 2; L89.522 Pressure ulcer of left ankle, stage 2; L89.512 Pressure ulcer of right ankle, stage 2; L89.622 Pressure ulcer of left heel, stage 2 | CPT/HCPCS: 97597; 97598 ==

== ENCOUNTER → 2025-01-01 10:53 | Outpatient (BNVA) | payer MEDICARE, SELFPAY | PROVIDERS: PCP Family Medicine; Visit Provider Thoracic Surgery (Cardiothoracic Vascular Surgery) | DX: I96 Gangrene, not elsewhere classified (principal); L89.513 Pressure ulcer of right ankle, stage 3; L89.612 Pressure ulcer of right heel, stage 2; L89.522 Pressure ulcer of left ankle, stage 2; L89.622 Pressure ulcer of left heel, stage 2 | CPT/HCPCS: 97597; A6248 ==

== ENCOUNTER → 2025-01-08 13:09 | Outpatient (BNVA) | payer MEDICARE, SELFPAY | PROVIDERS: PCP Family Medicine; Visit Provider Thoracic Surgery (Cardiothoracic Vascular Surgery) | DX: I96 Gangrene, not elsewhere classified (principal); L89.612 Pressure ulcer of right heel, stage 2; L89.522 Pressure ulcer of left ankle, stage 2; L89.622 Pressure ulcer of left heel, stage 2; L89.512 Pressure ulcer of right ankle, stage 2; L89.890 Pressure ulcer of other site, unstageable | CPT/HCPCS: 11042; A6212 ×2 ==

== ENCOUNTER → 2025-01-15 14:07 | Outpatient (BNVA) | payer MEDICARE, SELFPAY | PROVIDERS: PCP Family Medicine; Visit Provider Thoracic Surgery (Cardiothoracic Vascular Surgery) | DX: I96 Gangrene, not elsewhere classified (principal); L89.513 Pressure ulcer of right ankle, stage 3; L89.612 Pressure ulcer of right heel, stage 2; L89.522 Pressure ulcer of left ankle, stage 2; L89.622 Pressure ulcer of left heel, stage 2; L89.892 Pressure ulcer of other site, stage 2 | CPT/HCPCS: 11042; A6248 ==

== ENCOUNTER → 2025-01-22 14:31 | Outpatient (BNVA) | payer MEDICARE, SELFPAY | PROVIDERS: PCP Family Medicine; Visit Provider Thoracic Surgery (Cardiothoracic Vascular Surgery) | DX: I96 Gangrene, not elsewhere classified (principal); L89.513 Pressure ulcer of right ankle, stage 3; L89.612 Pressure ulcer of right heel, stage 2; L89.522 Pressure ulcer of left ankle, stage 2; L89.622 Pressure ulcer of left heel, stage 2; L89.892 Pressure ulcer of other site, stage 2; L89.890 Pressure ulcer of other site, unstageable | CPT/HCPCS: 11042; A6210; A6212 ×2 ==

== ENCOUNTER → 2025-01-28 12:33 | Outpatient (BNVA) | payer MEDICARE, SELFPAY | PROVIDERS: PCP Family Medicine; Visit Provider Internal Medicine | DX: I73.9 Peripheral vascular disease, unspecified (principal); L97.509 Non-pressure chronic ulcer of other part of unspecified foot with unspecified severity; I65.22 Occlusion and stenosis of left carotid artery; G82.20 Paraplegia, unspecified; I10 Essential (primary) hypertension; Z79.02 Long term (current) use of antithrombotics/antiplatelets; Z79.82 Long term (current) use of aspirin; Z95.1 Presence of aortocoronary bypass graft; Z87.891 Personal history of nicotine dependence; R07.9 Chest pain, unspecified | CPT/HCPCS: 93005; 99204 ==

== ENCOUNTER → 2025-01-29 13:56 | Outpatient (BNVA) | payer MEDICARE, SELFPAY | PROVIDERS: PCP Family Medicine; Visit Provider Thoracic Surgery (Cardiothoracic Vascular Surgery) | DX: I96 Gangrene, not elsewhere classified (principal); L89.513 Pressure ulcer of right ankle, stage 3; L89.612 Pressure ulcer of right heel, stage 2; L89.622 Pressure ulcer of left heel, stage 2; L89.522 Pressure ulcer of left ankle, stage 2; L89.892 Pressure ulcer of other site, stage 2; L89.890 Pressure ulcer of other site, unstageable | CPT/HCPCS: 11042; 87070; 87176; 87205; 97597; 97598 ==

== ENCOUNTER → 2025-02-04 11:07 | Outpatient (BNVA) | payer MEDICARE, SELFPAY | PROVIDERS: PCP Family Medicine; Visit Provider Podiatrist Foot & Ankle Surgery | DX: L60.3 Nail dystrophy (principal); I73.9 Peripheral vascular disease, unspecified; G62.9 Polyneuropathy, unspecified; T84.498A Other mechanical complication of other internal orthopedic devices, implants and grafts, initial encounter; Y79.2 Prosthetic and other implants, materials and accessory orthopedic devices associated with adverse incidents | CPT/HCPCS: 99214 ==

== ENCOUNTER 2025-02-05 01:19 | Inpatient (IN) | payer MEDICARE, SELFPAY ==
--- OUTSIDE RECORDS SUMMARY | 2003-07-30 19:00 | XMS_ITS | Continuity of Care Document ---
Author Name [facility] Address [address] [place] [address] Organization [facility] Care Team Providers Care Drawing Box Tender Name Role Phone [facility] Unavailable Unavailable Allergies, Adverse Reactions, Alerts Substance Category Reaction Severity Reaction type Status Date Reported Comments Source lidocaine Assertion Respiratory event Severe Drug allergy Active [facility]
[2025-02-05] VITALS (92 sets, daily range): BP systolic 62–134; BP diastolic 40–74; PULSE 54–128; RESP 0–27; TEMP 36.4–36.8; O2SAT 87–100; BMI 22.9
--- NOTE | 2025-02-05 01:22 | ECG_ITS ---
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 Measurements Intervals [place]da Rate: 83 P: 76 [place]: 182 QRS: 72 QRSD: 128 T: 83 QT: 401 QTc: 473 Interpretive Statements SINUS RHYTHM MODERATE INTRAVENTRICULAR CONDUCTION DELAY [110+ ms QRS DURATION] MARKED ST ELEVATION, CONSIDER INFERIOR INJURY [MARKED ST ELEVATION W/O NORMALLY INFLECTED T-WAVE IN II/aVF] ACUTE ME Compared to ECG 01/28/2025 12:41:38 Intraventricular conduction delay now present ST (T wave) deviation now present Myocardial infarct finding still present Electronically Signed On 02-05-2025 20:19:07 CDT by Marie Jacobs M.D. [email or web address]
--- OUTSIDE RECORDS SUMMARY | 2025-02-05 01:33 | XMS_ITS | Encounter Summary ---
Author Organization [employer] [facility] Address [address] [place] [address] Care Team Providers Care Multimedia Manager Name Role Phone Eliot Tamez DO Primary Care Provider [phone] Encounter Details Date Type Department Care Team (Latest Contact Info) Description 01/02/2002 Outpatient Historical [facility] Hair Rushing MD [address] [place] [address] ESOPHAGEAL REFLUX (Primary Dx); JOINT PAIN-MULT JTS Social History Tobacco Use Types Packs/Day Years Used Date Smoking Tobacco: Never Assessed Sex and Gender Information Value Date Recorded Sex Assigned at Not on file 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
--- OUTSIDE RECORDS SUMMARY | 2025-02-05 01:33 | XMS_ITS | Encounter Summary ---
Author Organization [employer] [facility] Address [address] [place] [address] Care Team Providers Care Relations Manager Name Role Phone Eliot Tamez DO Primary Care Provider [phone] Encounter Details Date Type Department Care Team (Latest Contact Info) Description 01/28/2002 Outpatient Historical [facility] Hair Rushing MD [address] [place] [address] OSTEOARTHROS NOS-UNSPEC (Primary Dx); ESOPHAGEAL REFLUX; Other Counseling Social History Tobacco Use Types Packs/Day Years Used Date Smoking Tobacco: Never Assessed Sex and Gender Information Value Date Recorded Sex Assigned at Not on file 

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
--- OUTSIDE RECORDS SUMMARY | 2025-02-05 01:33 | XMS_ITS | Encounter Summary ---
Author Organization [employer] [facility] Address [address] [place] [address] Care Team Providers Care Cisco Network Engineer Name Role Phone Eliot Tamez DO Primary Care Provider [phone] Encounter Details Date Type Department Care Team (Latest Contact Info) Description 01/11/2002 Outpatient Historical [facility] Hair Rushing MD [address] [place] [address] JOINT PAIN-UNSPEC (Primary Dx); SCREENING-LIPOID DISORDERS; SCREENING MAL NEOP-PROSTATE Social History Tobacco Use Types Packs/Day Years Used Date Smoking Tobacco: Never Assessed Sex and Gender Information Value Date Recorded Sex Assigned at Not on file 

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
--- NOTE | 2025-02-05 01:39 | XRR_ITS ---
PROCEDURE INFORMATION: Exam: XR Chest Exam date and time: 02/05/2025 1:41 AM Age: 74 years old Clinical indication: Pain; Chest pressure; Prior surgery; Surgery date: 6+ months; Surgery type: Spine surgery, cabg; Additional info: Cp TECHNIQUE: Imaging protocol: Radiologic exam of the chest. Views: 1 view. COMPARISON: CR XR chest 1V portable [id number] 12/19/2020 1:55 PM FINDINGS: Lungs: Unremarkable. No consolidation. Pleural spaces: Unremarkable. No pleural effusion. No pneumothorax. Heart/Mediastinum: Unremarkable. No cardiomegaly. Bones/joints: Sternotomy wires present. Postsurgical changes from posterior fusion involving the mid and lower thoracic spine. XR/XR chest 1V portable [id number] IMPRESSION: No acute abnormality.
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
[2025-02-05] MEDS: norepinephrine 4 MG/250 ML BAG 15 MG IV (01:53)
[2025-02-05 01:55] LABS: Hematocrit 39.4 % (37-53); Hemoglobin 12.20 g/dL (11.27-16.99); Mean Corpuscular HGB Conc 31.0 g/dL (30-55); Mean Corpuscular Hemoglobin 25.5 pg (27-33); Mean Corpuscular Volume 82.4 fl (82-101); Nucleated Red Blood Cells % 0 %; Platelet Count 300 10^3/cmm (157-399); Red Blood Count 4.78 10^6/uL (3.85-5.65); White Blood Count 9.61 10^3/uL (3.29-11.43)
--- NOTE | 2025-02-05 01:59 | ECG_ITS ---
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 Measurements Intervals [place] Rate: 70 P: 0 TX: 0 QRS: 268 QRSD: 153 T: 55 QT: 397 QTc: 430 Interpretive Statements UNCERTAIN IRREGULAR RHYTHM RIGHT AXIS DEVIATION [QRS AXIS > 100] RIGHT BUNDLE BRANCH BLOCK [120+ ms QRS DURATION, UPRIGHT V1, 40+ ms S IN I/aVL/V4/V5/V6] POSSIBLE ANTERIOR MYOCARDIAL INFARCTION , OF INDETERMINATE AGE [30 ms Q WAVE IN V3/V4, OR R < 0.2 mV IN V4] INFERIOR MYOCARDIAL INFARCTION , POSSIBLY ACUTE [40+ ms Q WAVE AND/OR ST/T ABNORMALITY IN II/aVF]. ACUTE PA Compared to ECG 02/05/2025 01:31:08 Right-axis deviation now present. Right bundle-branch block now present Sinus rhythm no longer present . Intraventricular conduction delay no longer present. ST (T wave) deviation no longer present. Electronically Signed On 02-05-2025 20:18:57 CDT by Marie Jacobs M.D. [email or web address]
[2025-02-05] MEDS: heparin 5,000 unit/mL INJ 1 mL 4000 UNIT IVP (02:02)
--- NOTE | 2025-02-05 02:07 | XACV_ITS ---
Exam Room: 2 Ht: 178 cm Wt: 73 kg BSA: 1.89 m2 Gender: Male : 1950 Any Known Allergies: Other Exam Priority: Routine Procedure(s): Procedure Description: Diagnostic procedure Procedure Description: PCI procedure Procedure Description: Venous Graft Catheterization Procedure Description: GLORIA Graft Catheterization Procedure Description: Drug Eluting Coronary Stent Procedure Description: PTCA Procedure Description: Miscellaneous Procedure Description: ACT Procedure Description: Coronary Angiography Diagnostic Cath Status: Emergency Diagnostic Findings * Left Main: Chronic total occlusion, FER: 0 flow. No flow in LAD and left circumflex artery. * Proximal Right Coronary Artery: chronic total occlusion, FER: 0 flow. * Sequential SVG graft from Ascending Aorta to LCx/ OM: total thormbotic occlusion, FER: 0 flow. This is culprit vessel for STEMI. * Sequential SVG graft from Ascending Aorta to Distal Right Coronary Artery: Chronic total occlusion, FER: 0 flow. Totally occluded prior stent. * GLORIA to LAD is patent. * Coronary angiography shows right dominance. PCI Status: Emergency PCI Indication: STEMI - Immediate PCI for STEMI Interventional Findings * Procedure detail: We engaged SVG to left circumflex artery with JR4 guide catheter. Run-through wire was used to cross the graft and was brought in the distal [place] vessel. Heparin was administered to maintain anticoagulation. 2.5 x 12mm semicompliant balloon was used to predilate the stenosis. Flow could not be restored. We then used 2.5 x 30 mm semicompliant balloon and performed balloon angioplasty from distal SVG graft to the proximal. This restored flow and showed culprit lesion was in the distal graft. We then placed 3.5 x 22 mm resolute [place] drug-eluting stent in the distal SVG to left circumflex artery. At this time final angiogram showed excellent stent expansion, no residual stenosis and FER 3 flow. Guidewire and guide catheter were removed. . Conclusions 1. Total thrombotic occlusion of SVG to circumflex artery status post successful revascularization with 1 stent.. 2. Two coronary grafts visualized: all grafts occluded. Recommendations * Dual antiplatelet therapy with aspirin and plavix. * High intensity statin therapy. * Outpatient cardiology follow up in 2 weeks. Interventional RX Recommendation: PCI w/o planned CABG Diagnostic RX Recommendation: PCI w/o planned CABG Anticoagulation: Heparin Pressures Phase:Rest AO : 107 / 57 ( 75 ) @ 10:28:17 PM 88 / 63 ( 75 ) @ 10:28:17 PM 94 / 67 ( 79 ) @ 10:28:17 PM 131 / 82 ( 97 ) @ 10:28:17 PM Clinical Evaluation EBL: 5mL-10mL Procedural Details Pre-Procedure Time Out. Identified patient by full name and date of as verbalized by the patient/guarantor. Does the consent match the physician's order: N/A Emergent. Accurate & Complete Informed Consent: N/A Emergent. Inpatient/Outpatient History & Physical on Chart: N/A Emergent. If H&P is completed, is and addenduem needed: N/A Emergent; If yes, is the addendum complete: N/A Emergent. Visualize and Verify Site with Patient/Guarantor: N/A. Relevant Radiology Images available: N/A Emergent. Pre-op teaching completed and patient verbalized understanding. The risks, benefits, and alternatives of sedation and/or procedure were discussed by physician. The patient agrees to continue. Procedure started. Physician arrived. Physician scrubbed in. Immediate Pre-Procedure Time Out. Correct Patient: N/A Emergent; Correct Procedure: N/A Emergent; Correct Site: N/A Emergent; Correct Patient Position: N/A Emergent; Correct Supplies: N/A Emergent; Dried Flammable Prep: N/A Emergent; Blood Products Available: N/A Emergent;. [facility] Clinical Fraility Score: 6: Moderately Frail. Rate Setter Indications: ACS <= 24 hours. Chest Pain Symptom Assessment: Typical Angina Symptoms. Cardiovascular Instability: Yes, if yes, Persistant Ischemic Symptoms. Correct patient, site and procedure confirmed by cath team. Current diagnosis: STEMI. PERRLA. Strong, equal hand tool analyst bilaterally. Lungs clear x 5 lobes. Oxygen started at 2liters/min via nasal canula. bilateral groins was prepped with chloroprep then draped in the usual sterile fashion. Baseline sample Acquired. HR: 49 BPM. Bupivicaine 1% infiltrated to the left groin. Current Diagnosis : STEMI. Arterial access obtained with micropuncture set. 6 frisian JR 4 guide catheter was inserted over the wire. SVG's to OM occluded. Runthrough guidewire was advanced through the guide catheter to lesion in the OM. Inflation number : 1 A AB TREK 2.50X12 RX BALLOON was prepped and advanced across the Aorta Left -> 1st Ob Kristan , then inflated to 8 RAISA for 0:10 seconds. Inflation number: 2 The AB TREK 2.50X12 RX BALLOON was reinflated across the Aorta Left -> 1st Ob Kristan, to 8 RAISA for 0:07 seconds. Inflation number: 3 The AB TREK 2.50X12 RX BALLOON was reinflated across the Aorta Left -> 1st Ob Kristan, to 10 RAISA for 0:09 seconds. Balloon out. Results checked. Inflation number : 4 A AB TREK 2.50X30 RX BALLOON was prepped and advanced across the Aorta Left -> 1st Ob Kristan , then inflated to 8 RAISA for 0:09 seconds. Inflation number: 5 The AB TREK 2.50X30 RX BALLOON was reinflated across the Aorta Left -> 1st Ob Kristan, to 8 RAISA for 0:06 seconds. Inflation number: 6 The AB TREK 2.50X30 RX BALLOON was reinflated across the Aorta Left -> 1st Ob Kristan, to 8 RAISA for 0:06 seconds. Inflation number: 7 The AB TREK 2.50X30 RX BALLOON was reinflated across the Aorta Left -> 1st Ob Kristan, to 4 RAISA for 0:07 seconds. Inflation number: 8 The AB TREK 2.50X30 RX BALLOON was reinflated across the Aorta Left -> 1st Ob Kristan, to 4 RAISA for 0:11 seconds. Inflation number: 9 The AB TREK 2.50X30 RX BALLOON was reinflated across the Aorta Left -> 1st Ob Kristan, to 10 RAISA for 0:16 seconds. Balloon out. Results checked. Inflation Number : 10 A BYRON Paiz ANALY 3.5X22 BARBIE -Lot Number# _[id number] EXP:04/20/2027 was prepped and advanced across the Aorta Left -> 1st Ob Kristan. The stent was deployed at 12 RAISA for 0:16 seconds. Stent balloon out over wire. Results checked. Wire out. Guide catheter out. A 5 frisian JR4 catheter in over wire. Multiple views taken of right coronary artery. SVG to RCA occluded. ACT drawn. Results 206 seconds. Therapeutic limits - pre-heparin administration 90-150 seconds and monitoring heparin during a vascular procedure >250 seconds. GLORIA to LAD visualized. Catheter removed over the standard wire. A 5 frisian JL4 catheter in over wire. ACT drawn. Results 245 seconds. Therapeutic limits - pre-heparin administration 90-150 seconds and monitoring heparin during a vascular procedure >250 seconds. A view taken of left coronary artery. Catheter removed over the standard wire. A Left femoral angiogram was performed to determine safe placement of closure device. ACT drawn. Results 202 seconds. Therapeutic limits - pre-heparin administration 90-150 seconds and monitoring heparin during a vascular procedure >250 seconds. Physician scrubbed out. A Suture was successful obtaining hemostatsis at the Left Femoral artery insertion site. Sheath(s) sutured into position with 2-0 silk and sterile 4x4's and Op-site applied over the site. No oozing or signs and symptoms of hematoma noted. Arterial sheath flushed and connected to tranducer and pressure bag with heparinized saline. PERRLA. Strong, equal hand tool analyst bilaterally. No VTE prophylaxis required. Medication's Wasted: Other = Versed 0.5 mg. Medication's Wasted: Lidocaine 1% = 10 mL. Vital chart was stopped. PCI Indication: STEMI. Post-op diagnosis: Stent to the OM SVG. Complications: None. Estimated blood loss: 5mL-10mL. Responsiveness - Normal response to verbal stimuli; alert and oriented, PERRLA. Airway - Unaffected, no intervention required; spontaneous ventilation. Circulation: W/N/L, pulses unchanged. Nausea/Vomiting: No. Procedure completed. Patient transferred by bed to ICU. Access Site Site: Left Femoral artery Sheath Size: 6 Fr Hemostasis Method: Suture Hemostasis Success: Successful Procedure Medications Start: 2:26 AM Stop: 2:26 AM Medication: Versed Amount: 0.5 mg Route: I.V. Start: 2:26 AM Stop: 2:26 AM Medication: Benadryl Amount: 25 mg Start: 2:32 AM Stop: 2:32 AM Medication: Heparin Amount: 3000 units Route: I.V. Start: 2:48 AM Stop: 2:48 AM Medication: Heparin Amount: 2000 units Route: I.V. Start: 3:07 AM Stop: 3:07 AM Medication: Aggrastat 12.5 mg/250 mL Amount: 37 ml Route: I.V. bolus Start: 3:07 AM Stop: 3:07 AM Medication: Aggrastat 12.5 mg/250 mL Amount: 13.3 ml/hr Route: I.V. drip Start: 3:25 AM Stop: 3:25 AM Medication: Amiodarone (Cordarone) Amount: 1 mg/min Route: I.V. aramis Nunn, the attending physician, have reviewed and verified all procedure medications. Yes, all medications given per verbal order History/Risk Factors Hypertension: No Dyslipidemia: No Peripheral Arterial Disease (PAD): No Myocardial Infarction (VT): No Obesity: No Renal Disease: No Prior Interventions PCI: No CABG: No Valve Surgery: No Report Signatures Finalized by Gualberto Rutherford MD on 02/14/2025 02:04 PM
--- NOTE | 2025-02-05 02:15 | PC.NURSE ---
To physician recruiter at [phone]
[2025-02-05 02:16] LABS: Troponin(5th) Baseline 70 ng/L (0-15)
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
[2025-02-05 02:22] LABS: Alanine Aminotransferase 9 U/L (0-41); Albumin Level 3.9 g/dL (3.5-5.2); Alkaline Phosphatase 59 U/L (40-130); Anion Gap 19.2 (5-19); Aspartate Amino Transferase 26 U/L (0-40); Blood Urea Nitrogen 14 mg/dL (8-23); Calcium 9.5 mg/dL (8.5-10.5); Carbon Dioxide 28 mmol/L (22-29); Chloride 97 mmol/L (98-107); Creatinine Clr Calc Pharmacy 84.7155; Globulin 2.6 g/dL (1.3-4.6); Glucose 148 mg/dL (65-115); Lipase 21 U/L (13-60); Osmolality Calculated 293 mOsm/kg (285-295); Potassium 4.2 mmol/L (3.5-5.1); Sodium 140 mmol/L (136-145); Total Protein 6.5 g/dL (6.6-8.7)
--- NOTE | 2025-02-05 02:54 | PC.NURSE ---
0154- Pt given 0.1 mg push dope epi per Audrey Schwab RN per VO Dr. Torres at bedside d/t decreased pulse/hypotension 62/40 hr 54 0208- pt given 0.05 mg push dose epi per Myself per VO Dr. Torres at bedside d/t decreased pulse/hypotension HR 55 Blood pressure 70/45
--- NOTE | 2025-02-05 03:26 | PM.PROC ---
Procedure Note: Date of procedure: 02/05/25 Pre-procedure diagnosis: Acute ST elevation [place] Post-procedure diagnosis: other (Total thrombotic occlusion of SVG to circumflex artery status post PCI with 1 stent.) Procedure: GLORIA to LAD is patent. SVG to RCA is totally occluded with occluded prior stent. SVG to left circumflex artery is 100% occluded with thrombus. This is the culprit vessel for acute inferior wall ST elevation [place]. Status post successful revascularization with 1 stent. [place] coronary arteries are all occluded. Patient has severe peripheral artery disease. We will continue with dual antiplatelet therapy with aspirin and Plavix. Aggrastat for 4 hours. Patient went into atrial fibrillation with RVR postprocedure. Started on amiodarone. He is on Levophed for cardiogenic shock. MAP is over 90. Once patient is in the ICU can downtitrate Levophed. Performing Provider: Gualberto Rutherford Estimated blood loss (mL): 5 Complications: None Condition: critical Disposition: ICU Coding Level of Care Code Acute Code for [facility]
--- NOTE | 2025-02-05 03:40 | ECG_ITS ---
[facility] 2025-02[facility]05 Pat Name: Kobe Gardner Department: Room: Gender: Male Medical Reception: : 1950 Requested By: Derrell Torres Order Number: [id number] [place] MD: Marie Jacobs M.D. Measurements Intervals [place] Rate: 107 P: 0 NC: 0 QRS: 92 QRSD: 129 T: -60 QT: 344 QTc: 461 Interpretive Statements ATRIAL FIBRILLATION WITH RAPID VENTRICULAR RESPONSE BORDERLINE RIGHT AXIS DEVIATION [QRS AXIS > 90] MODERATE INTRAVENTRICULAR CONDUCTION DELAY [110+ ms QRS DURATION] MODERATE ST DEPRESSION [0.05+ mV ST DEPRESSION] ABNORMAL QRS-T ANGLE [QRS-T AXIS DIFFERENCE > 60] Compared to ECG 02/05/2025 01:59:32 Intraventricular conduction delay now present ST (T wave) deviation now present Right bundle-branch block no longer present Myocardial infarct finding no longer present Electronically Signed On 02-05-2025 20:27:30 CDT by Marie Jacobs M.D. [email or web address]
[2025-02-05] MEDS: tirofiban 5 MG/100 ML PREMIX 13.06 MG IV ×2 (03:45→06:43)
[2025-02-05 04:08] LABS: Hematocrit 35.1 % (37-53); Hemoglobin 10.90 g/dL (11.27-16.99); Mean Corpuscular HGB Conc 31.1 g/dL (30-55); Mean Corpuscular Hemoglobin 26.4 pg (27-33); Mean Corpuscular Volume 85.0 fl (82-101); Nucleated Red Blood Cells % 0 %; Platelet Count 426 10^3/cmm (157-399); Red Blood Count 4.13 10^6/uL (3.85-5.65); White Blood Count 29.03 10^3/uL (3.29-11.43)
--- NOTE | 2025-02-05 04:18 | PC.NURSE ---
Dr. Rutherford gave orders to run amioderone drip per protocol and keep Aggrastat going at 13.3 mls/hr for 4 hours.
[2025-02-05 04:32] LABS: Troponin T (5th) Once 1007 ng/L (0-15)
[2025-02-05 04:50] LABS: Anion Gap 22.6 (5-19); Blood Urea Nitrogen 15 mg/dL (8-23); Calcium 8.3 mg/dL (8.5-10.5); Carbon Dioxide 18 mmol/L (22-29); Chloride 103 mmol/L (98-107); Creatinine Clr Calc Pharmacy 81.5920; Glucose 210 mg/dL (65-115); Osmolality Calculated 297 mOsm/kg (285-295); Potassium 3.6 mmol/L (3.5-5.1); Sodium 140 mmol/L (136-145)
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
[2025-02-05] MEDS: cefepime 1,000 mg SDV 1000 MG IVP ×3 (05:56→20:53)
--- NOTE | 2025-02-05 06:46 | PHA.VACGOAL ---
Vancomycin Goal - Goal Vancomycin Goal:: 10-15 mg/L Vancomycin Indication:: SSTI - Therapy Current therapy:: Cefepime Day of therpy:: Day [1]of [] . Actual body weight (kg): 65.862 kg - Data Labs: WBC 29.03 10^3/uL (3.29-11.43) H 02/05/25 04:06 RBC 4.13 10^6/uL (3.85-5.65) 02/05/25 04:06 Hgb 10.90 g/dL (11.27-16.99) L 02/05/25 04:06 Hct 35.1 % (37-53) L 02/05/25 04:06 MCV 85.0 fl (82-101) 02/05/25 04:06 MCH 26.4 pg (27-33) L 02/05/25 04:06 MCHC 31.1 g/dL (30-55) 02/05/25 04:06 RDW 15.5 % (12.1-15.1) H 02/05/25 04:06 Sodium 140 mmol/L (136-145) 02/05/25 04:06 Potassium 3.6 mmol/L (3.5-5.1) 02/05/25 04:06 Chloride 103 mmol/L (98-107) 02/05/25 04:06 Carbon Dioxide 18 mmol/L (22-29) L 02/05/25 04:06 Anion Gap 22.6 (5-19) H 02/05/25 04:06 BUN 15 mg/dL (8-23) 02/05/25 04:06 Creatinine 0.6 mg/dL (0.7-1.2) L 02/05/25 04:06 GFR Calculation Not Reportable 02/05/25 04:06 Treatment plan:: new consult Regimen:: New start vancomycin for hardware complicating wound infection, multiply lower extremity wounds. No prior history of vancomycin found. Load dose of 1500 mg ordered. Started on maintenance dose of 1000 mg q12h.
[2025-02-05] MEDS: norepinephrine 4 MG/250 ML BAG 45 MG IV (07:44)
--- NOTE | 2025-02-05 08:07 | ECG_ITS ---
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 Measurements Intervals [place] Rate: 75 P: 57 IL: 184 QRS: 24 QRSD: 117 T: 37 QT: 397 QTc: 446 Interpretive Statements SINUS RHYTHM INFERIOR MYOCARDIAL INFARCTION , PROBABLY OLD [40+ ms Q WAVE AND/OR ST/T ABNORMALITY IN II/aVF] Compared to ECG 02/05/2025 03:19:21 Myocardial infarct finding now present Atrial fibrillation no longer present Intraventricular conduction delay no longer present ST (T wave) deviation no longer present Electronically Signed On 02-05-2025 20:27:14 CDT by Marie Jacobs M.D. [email or web address]
--- NOTE | 2025-02-05 08:51 | USCV_ITS ---
Conrad RileyowayKobe Age: 74 Gender: M : 1950 Exam Date: 02/05/2025 09:54 Ordering Phys: Martin Mcucrdy MD Technologist: Exam Location: [facility] [place] Indication: dizzy htn BP: 88 / 59 HR: 76 Rhythm: Sinus Technical Quality: MEASUREMENTS (Male / Female) Normal Values 2D ECHO LV Diastolic Diameter PLAX 4.7 cm 4.2 - 5.9 / 3.9 - 5.3 cm IVS Diastolic Thickness 1.2 cm 0.6 - 1.0 / 0.6 - 0.9 cm IVS Systolic Thickness 2.2 cm LVPW Diastolic Thickness 1.3 cm 0.6 - 1.0 / 0.6 - 0.9 cm LVPW Systolic Thickness 1.8 cm LVOT Diameter 2.0 cm LV Ejection Fraction 2D Teich 43.1 % LV Ejection Fraction MOD 4C 42.0 % LV Ejection Fraction MOD 2C 38.0 % LV Ejection Fraction 2C AL 39.3 % LA Diameter 5.0 cm RA Systolic Volume 4C AL 43.8 ml RA Systolic Volume 4C MOD 42.7 ml LA Sys Volume AL 88.0 cm cubed LA Sys Volume Index AL 52.5 cm cubed/m squared Aorta at Sinotubular Diameter 2.3 cm M-MODE LA Ao Ratio MM 1.1 AV Cusp Separation MM 1.6 cm DOPPLER LVOT Peak Velocity 81.0 cm/s MV Peak Velocity 151.0 cm/s TV Peak Velocity 191.5 cm/s TR Peak Velocity 210.0 cm/s TR Peak Gradient 17.6 mmHg PV Peak Velocity 82.0 cm/s FINDINGS Left Ventricle Left ventricle is normal in size. LV systolic function is moderately reduced with EF of 35-40%. Moderate global hypokinesis with severe hypokinesis of inferolateral wall. Mild left ventricular hypertrophy. Right Ventricle RV is mildly hypokinetic Right Atrium Normal in size Left Atrium Dilated Mitral Valve Mitral valve is thickened. Severe mitral regurgitation. Aortic Valve Aortic valve is thickened. Mild aortic regurgitation. No significant stenosis Tricuspid Valve Insufficient TR jet to calculate RVSP Pulmonic Valve Not well visualized Pericardium Normal Aorta Normal in size IVC Not well visualized CONCLUSIONS LV systolic function is moderately reduced with EF of 35-40%. RV is mildly hypokinetic Left atrial dilation Severe mitral regurgitation Mild aortic regurgitation Compared to prior echocardiogram from 2020, LV systolic function has decreased significantly and patient now has severe mitral regurgitation. Gualberto Rutherford MD (Electronically Signed) Final Date: 05 February 2025 16:25 S
[2025-02-05 09:34] LABS: Partial Thromboplastin Time 37.7 SECONDS (23.9-36.7)
[2025-02-05 09:36] LABS: Procalcitonin 0.12 ng/mL (0-0.5)
[2025-02-05 09:51] LABS: Estmated Average Glucose 128; Hemoglobin A1C 6.1 % (4.0-6.0)
[2025-02-05 10:08] LABS: Thyroid Stimulating Hormone 4.09 uIU/mL (0.27-4.20); Total Iron Binding Capacity 206 mcg/dl; Unsaturated Iron Binding 169 ug/dL (112-347)
[2025-02-05 10:13] LABS: Iron 37 ug/dL (59-158); Vitamin B12 208 pg/mL (232-1245)
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
--- NOTE | 2025-02-05 12:44 | P.PN_ITS ---
Subjective 2 Subjective: Ordered overnight. Underwent PCI. Today morning seen in ICU with multiple family was at bedside. Patient sleeping, wakes up to verbal stimulus, slow to respond. Currently on 8 of Levophed. Mean artery pressure being maintained around 65-70. Currently on amiodarone of 0.5. Vitals/I&O/Wt Last Vital Signs Temp 98.3 F 02/05/25 12:00 Pulse 82 02/05/25 12:15 Resp 16 02/05/25 12:15 BP 122/74 02/05/25 12:15 Pulse Ox 97 02/05/25 12:15 O2 Del Method Nasal Cannula 02/05/25 04:22 O2 Flow Rate 2 02/05/25 02:10 02/04/25 02/05/25 02/05/25 22:59 06:59 14:59 Intake Total 2246.745 / 2246.745 648.809 / 648.809 Balance 2246.745 / 2246.745 648.809 / 648.809 Weight last 48 hrs Weight 65.862 kg Weight 65.862 kg Weight 72.575 kg Physical Exam 2 Narrative: General: No acute distress, tired appearing, sleepy, wakes up to verbal stimulus, chronically sick appearing cachectic HEENT: PERRLA, pupils bilaterally equal and reactive, pallors not present Chest: Normal vesicular breath sounds, no added sounds, equal good air entry bilaterally CVS: S1-S2 regular, no murmurs, no tachycardia, no gallops, no rubs Abdomen: Soft, nontender, no organomegaly, bowel sounds present Neuro: No focal deficits, no facial deformity, AO x3, power 5/5 in all limbs Ext: LE wounds wrapped in dressing Urinary Catheter Management: Shine: Cath Placed During This Visit: yes Urinary Catheter Date of Insertion: 02/05/25 Urinary Catheter Time of Insertion: 12:24 Data 02/05/25 04:06 02/05/25 04:06 Micro: Microbiology 02/05/25 06:17 Blood Culture - Preliminary Blood SPECIMEN COLLECTED 02/05/25 06:13 Blood Culture - Preliminary Blood SPECIMEN COLLECTED A&P Assessment and plan 1. ST elevation (STEMI) myocardial infarction: Post PCI. Continue with aspirin, Plavix, statin. Not on beta-vivien as patient is in cardiogenic shock. Check echocardiogram. 2. Cardiogenic shock: Wean Levophed keeping mean arterial pressure 65. NS at 75 cc/h. Monitor urine output. 3. Hardware complicating wound infection: Multiple LE wounds, Outpatient on abbx with levaquin and linezolid Given leukocytosis, will switch to iv abx during hospital admission to cefepime and vancomycin chosen given most recent wound cx with Pseudomonas and MSSA Wound care consult while inpatient. Follow-up blood culture. 4. Diabetes: Check A1c. Continue insulin sliding scale low-dose protocol. 5. Peripheral vascular disease: Plan: Patient currently drowsy most likely in setting of sedative medication which she received during cath procedure. If continues to have poor mentation can plan for have CT head and neck. For now patient is already on DAPT. Code status: Discussed until with patient's spouse and daughter at bedside. Full code. Consistent cardiac diet once patient is more awake. Protonix for PUD prophylaxis Will confirm with cardiology before starting on heparin DVT prophylaxis. PDMP PDMP Reviewed: Not Reviewed Attestations 2 Medical Necessity Statement*: Requires further hospitalization as per primary team for management of cardiogenic shock, ST elevation MD post PCI in a patient with history of hardware wound infection Critical Care Time: The high probability of a clinically significant, sudden or life threatening deterioration of the patient's [cardiac] system(s) required my full and direct attention, intervention and personal management. The critical care time is as shown. This time is in addition to time spent performing any reported procedures but includes the following: [x] Data and vital sign review and interpretation [x] Patient assessment, examination and intervention [x] Documentation [x] Medication orders and management Critical Care Time (min): 60 Coding Level of Care Code Critical Care >/= 30 minutes Critical care time (in minutes): 60 The high probability of a clinically significant, sudden or life threatening deterioration, as referenced in this documentation, required my full and direct attention, intervention and personal management. The critical care time shown is in addition to time spent performing any reported separately billable procedures and includes the following: [x] Data and vital sign review and interpretation [x ] Patient assessment, examination and intervention [x] Medication orders and management [x] Patient/Family updates as able [x] Care Coordination and Documentation. Other Coding Information This patient has a high probability of clinically significant, sudden or life threatening deterioration of the patient's (neurological/pulmonary/cardiac/renal/ID/endocrine) systems required my full, direct attention, the highest level of physician preparedness for urgent intervention and personal management. I managed/supervised life or organ supporting interventions that required frequent physician assessment. I devoted my full attention in the ICU to the direct care of this patient for the period of time indicated above. Time I spent with family or surrogate(s) is included only if the patient was incapable of providing necessary information or participating in decision making. This time includes the following services provided: Telemetry review Hemodynamic interpretation, assessment and management Review and interpretation of CXR Review and interpretation of lab values Review and interpretation of microbiologic data and culture results Review of medications and administration Review and interpretation of Nutrition requirements and management Discussion of management with other consultants and services Clinical update to family members Diagnoses ST elevation (STEMI) myocardial infarction I21.3 Cardiogenic shock R57.0 Hardware complicating wound infection T84.7XXA Diabetes E11.9 Peripheral vascular disease I73.9
[2025-02-05] MEDS: morphine 4 mg/mL SDV 1 mL 1 MG IVP ×3 (12:50→21:03)
[2025-02-05] MEDS: pantoprazole 40 mg SDV IVP (13:41)
[2025-02-05] MEDS: VANCOMYCIN ADD-Vantage 1,000 MG in 0.9% NaCl ADD-Vantage 250 ML 250 MG IV (17:34)
[2025-02-05] MEDS: norepinephrine 4 MG/250 ML BAG 7.5 MG IV (18:18)
[2025-02-06] VITALS (55 sets, daily range): BP systolic 91–117; BP diastolic 45–93; PULSE 67–133; RESP 0–31; TEMP 36.9–37.6; O2SAT 89–100
[2025-02-06 05:16] LABS: Hematocrit 33.5 % (37-53); Hemoglobin 10.40 g/dL (11.27-16.99); Mean Corpuscular HGB Conc 31.0 g/dL (30-55); Mean Corpuscular Hemoglobin 25.5 pg (27-33); Mean Corpuscular Volume 82.1 fl (82-101); Nucleated Red Blood Cells % 0 %; Platelet Count 284 10^3/cmm (157-399); Red Blood Count 4.08 10^6/uL (3.85-5.65); White Blood Count 12.04 10^3/uL (3.29-11.43)
[2025-02-06] MEDS: VANCOMYCIN ADD-Vantage 1,000 MG in 0.9% NaCl ADD-Vantage 250 ML 250 MG IV ×2 (05:32→17:46)
[2025-02-06] MEDS: cefepime 1,000 mg SDV 1000 MG IVP ×3 (05:32→20:35)
[2025-02-06 05:37] LABS: Alanine Aminotransferase 35 U/L (0-41); Albumin Level 3.1 g/dL (3.5-5.2); Alkaline Phosphatase 49 U/L (40-130); Anion Gap 19.6 (5-19); Aspartate Amino Transferase 141 U/L (0-40); Blood Urea Nitrogen 20 mg/dL (8-23); Calcium 8.6 mg/dL (8.5-10.5); Carbon Dioxide 19 mmol/L (22-29); Chloride 105 mmol/L (98-107); Cholesterol 153 mg/dL (0-200); Creatinine Clr Calc Pharmacy 81.5920; Globulin 2.8 g/dL (1.3-4.6); Glucose 145 mg/dL (65-115); HDL Cholesterol 22 mg/dL (60-100); Magnesium 1.8 mg/dL (1.7-2.3); Osmolality Calculated 293 mOsm/kg (285-295); Potassium 4.6 mmol/L (3.5-5.1); Sodium 139 mmol/L (136-145); Total Protein 5.9 g/dL (6.6-8.7); Triglycerides 133 mg/dL (0-150); VLDL Cholestrol Calculation 27 mg/dL (0-30)
--- NOTE | 2025-02-06 08:15 | P.PN_ITS ---
<Statement entered by Gualberto Rutherford M.D - 02/09/25 13:53> Patient was cared for in conjunction with an advanced practice practitioner.? I reviewed the chart and all pertinent data including imaging, telemetry, and laboratory results.? I discussed the patient in detail with the advanced practice practitioner.? Please see their note for complete progress note, testing results and agreed upon plan of care for the patient. Subjective 2 Subjective: He has done well overnight. Amiodarone has been transitioned from IV to oral. Levophed is off. Urine output has been low. No chest pain or shortness of breath. No complications with right femoral cath site. LVEF 35% by LV gram. He will need guideline directed medical therapy once blood pressure allows. Vitals/I&O/Wt Last Vital Signs Temp 98.4 F 02/06/25 07:30 Pulse 76 02/06/25 14:30 Resp 22 H 02/06/25 14:30 BP 99/51 02/06/25 14:30 Pulse Ox 97 02/06/25 14:30 O2 Del Method Room Air 02/06/25 14:30 O2 Flow Rate 3 02/06/25 07:52 02/05/25 02/06/25 02/06/25 22:59 06:59 14:59 Intake Total 2071.794 / 3098.853 101.875 / 3098.853 1705 / 1705 Output Total 500 / 800 300 / 800 850 / 850 Balance 1571.794 / 2298.853 -198.125 / 2298.853 855 / 855 Weight last 48 hrs Weight 160 lb 14.999 oz Weight 145 lb 3.2 oz Weight 145 lb 3.2 oz Weight 160 lb Physical Exam 2 Const: COMMON NORMALS: no acute distress and patient oriented x3 GENERAL APPEARANCE: cooperative ORIENTATION/CONSCIOUSNESS: Yes awake, Yes oriented to person, Yes oriented to place and Yes oriented to time Chest: COMMONS NORMALS: normal inspection of the chest and normal palpation of entire chest wall CHEST: Yes Symmetrical chest wall rise Resp: COMMON NORMALS: normal respiratory effort, No retractions and No use of accessory muscles AUSCULTATION: diminished lung sounds bilateral in the lower lung coffman Cardio: COMMON NORMALS: regular rate, regular rhythm, S1 normal heart sound present, S2 normal heart sound present, No gallops present (Cardio), No clicks present (Cardio), No murmurs present (Cardio) and No rub (Cardio) RATE: r egular rate RHYTHM: regular rhythm HEART SOUNDS: S1 normal heart sound present and S2 normal heart sound present PERIPHERAL PULSES: radial pulses present positive right 2+ and femoral pulses present positive right 2+ Neuro: COMMON NORMALS: patient oriented x3 and moves all extremities S ENSORIUM/ORIENTATION: Yes oriented to person, Yes oriented to place and Yes oriented to time Skin: WOUNDS: Yes surgical site (no hematoma palpable) Details: no odor Urinary Catheter Management: Shine: Cath Placed During This Visit: yes Reason for Continuing Indwelling Catheter: Accurate Measurement of Urinary Output in Critically Ill Patients Urinary Catheter Date of Insertion: 02/05/25 Urinary Catheter Time of Insertion: 12:24 Data 02/06/25 04:50 02/06/25 04:50 Micro: Microbiology 02/05/25 06:17 Blood Culture - Preliminary Blood NEGATIVE TO DATE 02/05/25 06:13 Blood Culture - Preliminary Blood NEGATIVE TO DATE A&P Assessment and plan 1. ST elevation (STEMI) myocardial infarction: 2. Cardiogenic shock: 3. Peripheral vascular disease: 4. Carotid artery disease: 5. Paraplegia: 6. Myoclonus: Plan: He is s/p PCI to the SVG to circumflex artery. GLORIA to LAD patent, SVG to RCA totally occluded with occluded prior stent. No complications with femoral cath site. Blood pressure has stabilized off of pressors. Will check UA and chest x-ray, WBC elevated. Remains in sinus rhythm on amiodarone. Noted exposed right ankle hardware-saw Dr. Wild on 02/04/2025 to discuss removal. Given his current STEMI and recent stent this will need to be discussed further with Dr. Wild. PDMP PDMP Reviewed: Not Reviewed Attestations 2 Medical Necessity Statement*: Systolic CHF, status post STEMI Coding Level of Care Code Acute Code for [facility] Diagnoses ST elevation (STEMI) myocardial infarction I21.3 Cardiogenic shock R57.0 Peripheral vascular disease I73.9 Carotid artery disease I77.9 Paraplegia G82.20 Myoclonus G25.3
--- NOTE | 2025-02-06 09:27 | XR_ITS ---
WS: [id number] Exam: XR chest 1V 08390 Date/Time of Exam: 02/06/2025 9:27 AM Reason For Exam: cardiogenic shock Comparison 02/05/2025. Increasing interstitial and airspace infiltrates in both lungs. Some infiltrates in the upper lung zone appear somewhat nodular in character. The heart is enlarged. No pleural effusion. No pneumothorax. Signs of previous CABG surgery. Fusion hardware in the thoracic spine. XR/XR chest 1V 29545 IMPRESSION: 1. Increasing interstitial and airspace infiltrates throughout both lungs that may represent pneumonia or pulmonary edema. The heart is enlarged. 2. Some infiltrates in the upper lung zones appear somewhat nodular in characte r. Serial imaging recommended to ensure complete resolution.
[2025-02-06] MEDS: pantoprazole 40 mg SDV IVP (09:28)
[2025-02-06] MEDS: heparin 5,000 unit/mL INJ 1 mL 5000 UNIT SUBCUT ×2 (09:28→20:32)
[2025-02-06] MEDS: morphine 4 mg/mL SDV 1 mL 1 MG IVP (09:29)
--- NOTE | 2025-02-06 11:30 | P.PN_ITS ---
Subjective 2 Subjective: Dr. Salas overnight. Patient has been off Levophed since Monday morning. Remains on amnio drip with stable heart rate. More awake and alert. Sitting up in bed. Denies any chest pain, difficulty in breathing. Currently on 5 L saturating 96%. Vitals/I&O/Wt Last Vital Signs Temp 98.4 F 02/06/25 07:30 Pulse 79 02/06/25 10:30 Resp 21 H 02/06/25 10:30 BP 110/65 02/06/25 10:30 Pulse Ox 92 02/06/25 10:30 O2 Del Method Room Air 02/06/25 10:30 O2 Flow Rate 3 02/06/25 07:52 02/05/25 02/06/25 02/06/25 22:59 06:59 14:59 Intake Total 2071.794 / 2746.978 101.875 / 2848.853 350 / 350 Output Total 500 / 500 300 / 800 Balance 1571.794 / 2246.978 -198.125 / 2048.853 350 / 350 Weight last 48 hrs Weight 73 kg Weight 65.862 kg Weight 65.862 kg Weight 72.575 kg Physical Exam 2 Narrative: General: No acute distress, AO x 3, chronically sick appearing cachectic HEENT: PERRLA, pupils bilaterally equal and reactive, pallors not present Chest: Normal vesicular breath sounds, no added sounds, equal good air entry bilaterally CVS: S1-S2 regular, no murmurs, no tachycardia, no gallops, no rubs Abdomen: Soft, nontender, no organomegaly, bowel sounds present Neuro: No focal deficits, no facial deformity, AO x3, power 5/5 in all limbs Ext: LE wounds wrapped in dressing Urinary Catheter Management: Shine: Cath Placed During This Visit: yes Reason for Continuing Indwelling Catheter: Accurate Measurement of Urinary Output in Critically Ill Patients Urinary Catheter Date of Insertion: 02/05/25 Urinary Catheter Time of Insertion: 12:24 Data 02/06/25 04:50 02/06/25 04:50 Micro: Microbiology 02/05/25 06:17 Blood Culture - Preliminary Blood NEGATIVE TO DATE 02/05/25 06:13 Blood Culture - Preliminary Blood NEGATIVE TO DATE A&P Assessment and plan 1. ST elevation (STEMI) myocardial infarction: Post PCI. Continue with aspirin, Plavix, statin. Not on beta-vivien as patient is in cardiogenic shock. Echocardiogram done. Results pending. 2. Cardiogenic shock: Levophed weaned off for later morning. DC IV fluids. Keep mean arterial pressure 65. 3. Hardware complicating wound infection: Multiple LE wounds, Outpatient on abbx with levaquin and linezolid Given leukocytosis, will switch to iv abx during hospital admission to cefepime and vancomycin chosen given most recent wound cx with Pseudomonas and MSSA Wound care consult while inpatient. Follow-up blood culture. 4. Diabetes: Appreciate A1c. Continue insulin sliding scale low-dose protocol. 5. Peripheral vascular disease: Plan: A-fib with RVR: Currently on amiodarone drip. Transition to 200 mg twice daily. Discussed with cardiology team regarding need for anticoagulation. Hypoxia: Could be in setting of mild congestive heart failure. Currently on NS at 75 cc/h. Appreciate intake and output. Cardiogenic shock is resolved. Will discontinue IV fluids. Appreciate x-ray. IV Lasix 40 mg one-time. Code status: Discussed until with patient's spouse and daughter at bedside. Full code. Consistent cardiac diet once patient is more awake. Protonix for PUD prophylaxis Heparin 5000 every 12 hourly for DVT prophylaxis. May transfer to [facility]. Discharge plan: Discussed in detail with patient and spouse at bedside. Discussed options of possible discharge to SNF which both patient and family declined. Plan to discharge home with home health once stable from primary team. PDMP PDMP Reviewed: Not Reviewed Attestations 2 Medical Necessity Statement*: As per primary team. Critical Care Time: The high probability of a clinically significant, sudden or life threatening deterioration of the patient's cardiac system(s) required my full and direct attention, intervention and personal management. The critical care time is as shown. This time is in addition to time spent performing any reported procedures but includes the following: [x] Data and vital sign review and interpretation [x] Patient assessment, examination and intervention [x] Documentation [x] Medication orders and management Critical Care Time (min): 65 Coding Level of Care Code Critical Care >/= 30 minutes Critical care time (in minutes): 65 The high probability of a clinically significant, sudden or life threatening deterioration, as referenced in this documentation, required my full and direct attention, intervention and personal management. The critical care time shown is in addition to time spent performing any reported separately billable procedures and includes the following: [x] Data and vital sign review and interpretation [x ] Patient assessment, examination and intervention [x] Medication orders and management [x] Patient/Family updates as able [x] Care Coordination and Documentation. Diagnoses ST elevation (STEMI) myocardial infarction I21.3 Cardiogenic shock R57.0 Hardware complicating wound infection T84.7XXA Diabetes E11.9 Peripheral vascular disease I73.9
[2025-02-06] MEDS: FUROsemide 10 mg/mL SDV 4mL 40 MG IVP ×2 (11:34→22:58)
[2025-02-06] MEDS: cyanocobalamin 1,000 mcg/mL SDV 1000 MCG IM (11:34)
--- NOTE | 2025-02-06 11:56 | P.PN_ITS ---
Subjective 2 Subjective: Patient evaluated at bedside in ICU today. Overall, he reports he is feeling better. He is more awake today. Dressings to bilateral feet are clean dry and intact. Vitals/I&O/Wt Last Vital Signs Temp 98.4 F 02/06/25 07:30 Pulse 79 02/06/25 10:30 Resp 21 H 02/06/25 10:30 BP 110/65 02/06/25 10:30 Pulse Ox 92 02/06/25 10:30 O2 Del Method Room Air 02/06/25 10:30 O2 Flow Rate 3 02/06/25 07:52 02/05/25 02/06/25 02/06/25 22:59 06:59 14:59 Intake Total 2071.794 / 2746.978 101.875 / 2848.853 350 / 350 Output Total 500 / 500 300 / 800 Balance 1571.794 / 2246.978 -198.125 / 2048.853 350 / 350 Weight last 48 hrs Weight 73 kg Weight 65.862 kg Weight 65.862 kg Weight 72.575 kg Physical Exam 2 Const: COMMON NORMALS: no acute distress GENERAL APPEARANCE: cooperative, comfortable and ill appearing NUTRITIONAL APPEARANCE: thin O RIENTATION/CONSCIOUSNESS: Yes awake, Yes oriented to person, Yes oriented to place and Yes oriented to time HENMT: HEAD & SCALP: normal to inspection Neck/C-Spine: GENERAL: Yes normal visual inspection Chest: CHEST: Yes Symmetrical chest wall rise Resp: COMMON NORMALS: normal respiratory effort and No retractions EFFORT & INSPECTION: Yes able to speak in complete sentences Cardio: COMMON NORMALS: regular rate RATE: regular rate PERIPHERAL PULSES: dorsalis pedis present positive bilateral dopplerable (monophasic) and other (>3 second capillary refill in distal digits of both feet) Extremity: RIGHT LOWER EXTREMITY: Yes foot & digits (normal skin temperature) LEFT LOWER EXTREMITY: Yes foot & digits (normal skin temperature) OTHER: open ulcerations noted to both feet Neuro: SENSORIUM/ORIENTATION: Yes oriented to person, Yes oriented to place and Yes oriented to time GAIT: Yes Unable to assess gait (paraplegia) Psych: COMMON NORMALS: mental status grossly normal and speech normal A TTITUDE: Yes calm SPEECH: Yes normal speech Data 02/06/25 04:50 02/06/25 04:50 Micro: Microbiology 02/05/25 06:17 Blood Culture - Preliminary Blood NEGATIVE TO DATE 02/05/25 06:13 Blood Culture - Preliminary Blood NEGATIVE TO DATE A&P Assessment and plan 1. Pressure ulcer of left heel, unstageable: 2. Pressure ulcer of left ankle, stage 3: 3. Pressure ulcer of right ankle, stage 3: 4. Type 2 diabetes mellitus with foot ulcer: 5. Peripheral vascular disease: Plan: Multiple open ulcerations to bilateral feet. Right calcaneal wound remains healed. Will recommend continued Optifoam. Left medial first metatarsal head wound appears stable with only a very small opening. Will recommend Optifoam over this area. The right medial ankle wound was noted to have exposed hardware upon evaluation. No bella purulence was noted. No local heat or erythema noted. Will continue wet-to-dry dressings to this wound twice daily. Dr. Wild plans to remove hardware in the near future. The left medial ankle wound remains covered in adherent slough and eschar. No active signs or symptoms of infection at this time. Will continue wet-to-dry dressings to this wound twice daily. Left medial foot wound with eschar beginning to separate appears stable without signs or symptoms of active infection. Will recommend wet-to-dry dressing to this wound twice daily. Left calcaneal wound is currently unstageable. The medial half of the wound is covered in eschar. No purulence or malodor was noted today. There is increasing erythema to the lateral side of the wound and some local heat is noted upon palpation. Will recommend podiatry evaluation regarding this wound. He has padded heel protectors in place upon evaluation today. They should remain in place and his heels should be floated with pillows to completely offload his feet. It would be beneficial for him to have his Podus boots, though he is not sure where these are as they did come in to the hospital with him but are not in his room. Monophasic pulses per handheld doppler. He has been evaluated by Dr. Rutherford regarding PAD and is scheduled for arterial on 02/10 at 2:30. Decreased blood flow places this patient at a higher risk for wound related complications. He is on a pressure relieving mattress in the ICU. He should be on a tight turning schedule, at least every 2 hours. He has a scheduled appointment at [facility] wound care on February 13 at 3 PM. Wound care will sign off for now. Any further wound care recommendation should be guided by hospitalist service. PDMP PDMP Reviewed: Not Reviewed Attestations 2 Medical Necessity Statement*: Ongoing wound care Time Spent in Patient Care: 16 - 35 minutes (>than 50% of time sp ent in counselling and/or direct pt care on unit) . Coding Level of Care Code Acute Code for [facility] Diagnoses Pressure ulcer of left heel, unstageable L89.620 Pressure ulcer of left ankle, stage 3 L89.523 Pressure ulcer of right ankle, stage 3 L89.513 Type 2 diabetes mellitus with foot ulcer E11.621; L97.509 Peripheral vascular disease I73.9 Wound Orders Wound Number 1: and Wound Number 4 Right heel and Left 1st medial metatarsal head Dressing change frequency: Daily Wound Cleansing: Saline Primary Wound Care Dressing: Optifoam Off-Loading: Low air-loss mattress, Turn and reposition every 2 hours and Padded heel protectors Wound Number 2: Wound Number 3, Wound Number 6 Left medial ankle, Right medial ankle, Left Medial Foot Dressing change frequency: Twice Daily Wound Cleansing: Saline Primary Wound Care Dressing: Wet to dry with saline Secondary Wound Care Dressing: Dry gauze, ABD pad, kerlix rolled gauze Off-Loading: Low air-loss mattress, Turn and reposition every 2 hours and Padded heel protectors Wound Number 7: Left calcaneus Dressing change frequency: Twice Daily Wound Cleansing: Saline Primary Wound Care Dressing: Betadine to stable eschar on medial side, Wet to dry to lateral side Secondary Wound Care Dressing: Dry gauze, ABD pad, kerlix rolled gauze Off-Loading: Low air-loss mattress, Turn and reposition every 2 hours and Padded heel protectors Wound Number 5: Right dorsal foot Dressing change frequency: Twice Daily Wound Cleansing: Saline Primary Wound Care Dressing: Betadine Secondary Wound Care Dressing: Optifoam Off-Loading: Low air-loss mattress, Turn and reposition every 2 hours and Padded heel protectors Discharge From Services Discharge from Wound Care [facility]
[2025-02-06 14:04] LABS: Glucose Urine UA Negative (Normal); Nitrate Urine Negative (Negative); Specific Gravity, Urine 1.009 (1.005-1.030)
[2025-02-06 14:09] LABS: Add Urine Microscopic? YES
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
--- NOTE | 2025-02-06 18:58 | PC.NURSE ---
Shift summary: Pt continues to rest in bed. He dozes intermittently in short intervals. He reported back pain this am. Morphine admin. He has denied pain since. Amio gtt and IVF stopped today. He ws started on PO amiodarone. He received 40mg of Lasix and subq B-12 today. He has ate at least 50% of each meal and drank majority of the nutritional shakes. Brant from wound care assessed his wounds. Dr Wild consulted to assess his wounds on his feet. Continued with the wet to dry dressings daily. His blood sugar has been well controlled 155-201 today. Treated per the sliding scale. He was incontinent of stool this am. URine output in catheter was 2200 m this shift.
[2025-02-07] VITALS (43 sets, daily range): BP systolic 84–117; BP diastolic 42–67; PULSE 70–87; RESP 3–37; TEMP 36.1–37; O2SAT 88–99
[2025-02-07] MEDS: norepinephrine 4 MG/250 ML BAG 7.5 MG IV (03:11)
[2025-02-07 05:11] LABS: Hematocrit 30.9 % (37-53); Hemoglobin 9.60 g/dL (11.27-16.99); Mean Corpuscular HGB Conc 31.1 g/dL (30-55); Mean Corpuscular Hemoglobin 25.3 pg (27-33); Mean Corpuscular Volume 81.3 fl (82-101); Nucleated Red Blood Cells % 0 %; Platelet Count 260 10^3/cmm (157-399); Red Blood Count 3.80 10^6/uL (3.85-5.65); White Blood Count 10.66 10^3/uL (3.29-11.43)
[2025-02-07] MEDS: VANCOMYCIN ADD-Vantage 1,000 MG in 0.9% NaCl ADD-Vantage 250 ML 250 MG IV (05:35)
[2025-02-07] MEDS: cefepime 1,000 mg SDV 1000 MG IVP ×3 (05:36→20:48)
[2025-02-07 05:37] LABS: Alanine Aminotransferase 27 U/L (0-41); Albumin Level 3.3 g/dL (3.5-5.2); Alkaline Phosphatase 49 U/L (40-130); Anion Gap 16.9 (5-19); Aspartate Amino Transferase 72 U/L (0-40); Blood Urea Nitrogen 14 mg/dL (8-23); Calcium 8.6 mg/dL (8.5-10.5); Carbon Dioxide 25 mmol/L (22-29); Chloride 102 mmol/L (98-107); Creatinine Clr Calc Pharmacy 84.9132; Globulin 2.1 g/dL (1.3-4.6); Glucose 115 mg/dL (65-115); Osmolality Calculated 291 mOsm/kg (285-295); Potassium 3.9 mmol/L (3.5-5.1); Sodium 140 mmol/L (136-145); Total Protein 5.4 g/dL (6.6-8.7)
[2025-02-07 05:38] LABS: Magnesium 1.8 mg/dL (1.7-2.3)
--- NOTE | 2025-02-07 06:00 | XR_ITS ---
WS: [id number] Exam: XR chest 1V portable [id number] Date/Time of Exam: 02/07/2025 9:09 AM Reason For Exam: hypoxia Comparison 02/06/2025. Again noted are airspace and interstitial infiltrates throughout both lungs showing little change since the last study. No pneumothorax. No pleural effusion. Cardiac enlargement unchanged. Monitoring leads superimpose the chest. Hardware in the thoracic spine and signs of previous CABG surgery. XR/XR chest 1V portable [id number] IMPRESSION: 1. Bilateral pulmonary infiltrates unchanged. Mild cardiac enlargement stable
[2025-02-07] MEDS: cyanocobalamin 1,000 mcg/mL SDV 1000 MCG IM (08:58)
[2025-02-07] MEDS: heparin 5,000 unit/mL INJ 1 mL 5000 UNIT SUBCUT ×2 (08:59→20:46)
[2025-02-07] MEDS: pantoprazole 40 mg SDV IVP (08:59)
--- NOTE | 2025-02-07 09:24 | P.PN_ITS ---
<Statement entered by Gualberto Rutherford M.D - 02/09/25 13:58> Patient was cared for in conjunction with an advanced practice practitioner.? I reviewed the chart and all pertinent data including imaging, telemetry, and laboratory results.? I discussed the patient in detail with the advanced practice practitioner.? Please see their note for complete progress note, testing results and agreed upon plan of care for the patient. Subjective 2 Subjective: He became a little hypotensive overnight, suspected to be due to diuresis, required Levophed infusion for short period of time. He is now weaned and blood pressure stable. He is feeling better, talking about going home. Vitals/I&O/Wt Last Vital Signs Temp 99.7 F H 02/06/25 14:00 Pulse 76 02/07/25 06:00 Resp 10 L 02/07/25 05:45 BP 105/63 02/07/25 06:00 Pulse Ox 93 02/07/25 06:00 O2 Del Method Nasal Cannula 02/06/25 18:00 O2 Flow Rate 3 02/06/25 18:00 02/06/25 02/07/25 02/07/25 22:59 06:59 14:59 Intake Total 650 / 3116.25 761.25 / 3116.25 14.5 / 14.5 Output Total 350 / 3350 1150 / 1150 Balance 300 / -233.75 761.25 / -233.75 -1135.5 / -1135.5 Weight last 48 hrs Weight 157 lb 10.088 oz Weight 160 lb 14.999 oz Physical Exam 2 Const: COMMON NORMALS: no acute distress and patient oriented x3 GENERAL APPEARANCE: cooperative and comfortable ORIENTATION/CONSCIOUSNESS: Yes awake, Yes oriented to person, Yes oriented to place and Yes oriented to time Chest: COMMONS NORMALS: normal inspection of the chest and normal palpation of entire chest wall CHEST: Yes Symmetrical chest wall rise Resp: COMMON NORMALS: normal respiratory effort, No retractions, No use of accessory muscles and clear to auscultation bilaterally EFFORT & INSPECTION: Yes symmetric chest movement AUSCULTATION: clear to auscultation bilaterally Cardio: COMMON NORMALS: regular rate, regular rhythm, S1 normal heart sound present, S2 normal heart sound present, No gallops present (Cardio), No clicks present (Cardio), No murmurs present (Cardio) and No rub (Cardio) RATE: r egular rate RHYTHM: regular rhythm HEART SOUNDS: S1 normal heart sound present and S2 normal heart sound present PERIPHERAL PULSES: radial pulses present Extremity: COMMON NORMALS: no pedal edema Neuro: COMMON NORMALS: patient oriented x3 SENSORIUM/ORIENTATION: Yes oriented to person, Yes oriented to place and Yes oriented to time GAIT: Yes Unable to assess gait (paraplegic) Urinary Catheter Management: Shine: Cath Placed During This Visit: yes Reason for Continuing Indwelling Catheter: Accurate Measurement of Urinary Output in Critically Ill Patients Urinary Catheter Date of Insertion: 02/05/25 Urinary Catheter Time of Insertion: 12:24 Data 02/07/25 04:53 02/07/25 04:53 Micro: Microbiology 02/05/25 06:17 Blood Culture - Preliminary Blood NEGATIVE TO DATE 02/05/25 06:13 Blood Culture - Preliminary Blood NEGATIVE TO DATE A&P Assessment and plan 1. ST elevation (STEMI) myocardial infarction: 2. Cardiogenic shock: 3. Peripheral vascular disease: 4. Diabetes: Plan: Blood pressures have stabilized. Continue amiodarone 200 mg twice a day, aspirin, Plavix, statin. He appears to be stable from a cardiovascular perspective. As blood pressure improves can add on GDMT for heart failure. Will plan to transfer to [facility] today. PDMP PDMP Reviewed: Not Reviewed Attestations 2 Medical Necessity Statement*: s/p stent to SVG to circumflex, GMDT for heart failure Coding Level of Care Code Acute Code for g Fwd Diagnoses ST elevation (STEMI) myocardial infarction I21.3 Cardiogenic shock R57.0 Peripheral vascular disease I73.9 Diabetes E11.9
--- NOTE | 2025-02-07 09:30 | PC.SOCIAL ---
IMM Update pg 2 of IMM Updated and reviewed w/ patient. Copy provided and copy dated, initialed and placed in chart.
--- NOTE | 2025-02-07 12:59 | P.PN_ITS ---
Subjective 2 Subjective: Overnight patient was given 40 mg of IV Lasix with concerns for fluid overload. After getting Lasix at around 3 AM he required Levophed of 4 which was weaned off at around 6 AM today morning. Currently on examination sitting up in bed, awake and alert with family at bedside with mean arterial pressure maintained around 70 off pressors. Tmax in last 24 hours 99.7 Fahrenheit 1 time yesterday afternoon. Vitals/I&O/Wt Last Vital Signs Temp 99.7 F H 02/06/25 14:00 Pulse 76 02/07/25 06:00 Resp 10 L 02/07/25 05:45 BP 105/63 02/07/25 06:00 Pulse Ox 93 02/07/25 06:00 O2 Del Method Nasal Cannula 02/06/25 18:00 O2 Flow Rate 3 02/06/25 18:00 02/06/25 02/07/25 02/07/25 22:59 06:59 14:59 Intake Total 650 / 2355 761.25 / 3116.25 264.5 / 264.5 Output Total 350 / 2200 1150 / 1150 Balance 300 / 155 761.25 / 916.25 -885.5 / -885.5 Weight last 48 hrs Weight 71.5 kg Weight 73 kg Physical Exam 2 Narrative: General: No acute distress, AO x 3, chronically sick appearing cachectic HEENT: PERRLA, pupils bilaterally equal and reactive, pallors not present Chest: Normal vesicular breath sounds, no added sounds, equal good air entry bilaterally CVS: S1-S2 regular, no murmurs, no tachycardia, no gallops, no rubs Abdomen: Soft, nontender, no organomegaly, bowel sounds present Neuro: No focal deficits, no facial deformity, AO x3, power 5/5 in all limbs Ext: LE wounds wrapped in dressing Urinary Catheter Management: Shine: Cath Placed During This Visit: yes Reason for Continuing Indwelling Catheter: Accurate Measurement of Urinary Output in Critically Ill Patients Urinary Catheter Date of Insertion: 02/05/25 Urinary Catheter Time of Insertion: 12:24 Data 02/07/25 04:53 02/07/25 04:53 A&P Assessment and plan 1. ST elevation (STEMI) myocardial infarction: Post PCI. Continue with aspirin, Plavix, statin. Not on beta-vivien as patient is in cardiogenic shock. Echocardiogram done. Results pending. 2. Cardiogenic shock: Levophed weaned off for later morning. DC IV fluids. Keep mean arterial pressure 65. 3. Hardware complicating wound infection: Multiple LE wounds, Outpatient on abbx with levaquin and linezolid Given leukocytosis, will switch to iv abx during hospital admission to cefepime and vancomycin chosen given most recent wound cx with Pseudomonas and MSSA Wound care consult while inpatient. Follow-up blood culture. 4. Diabetes: Appreciate A1c. Continue insulin sliding scale low-dose protocol. 5. Peripheral vascular disease: Plan: A-fib with RVR: Currently on amiodarone drip. Transition to 200 mg twice daily. Discussed with cardiology team regarding need for anticoagulation. Hypoxia: Could be in setting of mild congestive heart failure. Currently on NS at 75 cc/h. Appreciate intake and output. Cardiogenic shock is resolved. Will discontinue IV fluids. Appreciate x-ray. IV Lasix 40 mg one-time. Code status: Discussed until with patient's spouse and daughter at bedside. Full code. Consistent cardiac diet once patient is more awake. Protonix for PUD prophylaxis Heparin 5000 every 12 hourly for DVT prophylaxis. May transfer to [facility]. Discharge plan: Discussed in detail with patient and spouse at bedside. Discussed options of possible discharge to SNF which both patient and family declined. Plan to discharge home with home health once stable from primary team. Plan for the day: Continue with DAPT and statin. Monitor blood pressures. Goal blood pressure with mean over 65. If blood pressures improve can plan to start on guideline directed medical therapy for congestive heart failure. Continue with amiodarone 200 mg twice daily. Appreciate blood culture. So far negative. Urine culture negative. Appreciate podiatry recommendations. Plan for continuing with wound care for now and follow-up as an outpatient for screw removal. For now we will continue with IV vancomycin and cefepime. Will transition to oral linezolid and Levaquin on discharge as before. Appreciate echocardiogram showing EF of 35 to 40% with global LV hypokinesia with severe hypokinesia of inferior lateral wall, mild LVH, severe MR. Patient can be transferred to [facility]. Will defer to primary. Care discussed in detail with patient, family at bedside, cardiology team and RN taking care of the patient. Please call back with any questions. Thank you for involving us in care of Mr. Gardner. PDMP PDMP Reviewed: Not Reviewed Attestations 2 Medical Necessity Statement*: Requires further hospitalization for management of STEMI post PCI, resolving cardiogenic shock in a patient with congestive heart failure, chronic lower limb wound on oral antibiotics with concerns for osteomyelitis Diagnoses ST elevation (STEMI) myocardial infarction I21.3 Cardiogenic shock R57.0 Hardware complicating wound infection T84.7XXA Diabetes E11.9 Peripheral vascular disease I73.9
--- NOTE | 2025-02-07 15:06 | PC.NURSE ---
HOME her with pt's new boots and sheep skin
--- NOTE | 2025-02-07 15:25 | PC.NURSE ---
Report given to SHIRLEY Aviles, CSU for room 111.
--- NOTE | 2025-02-07 15:48 | PC.NURSE ---
received in to room 111-2 via bed,from icu...report received.pt is alert and oriented x 4.denies pain at present.sr on monitor.left groin (cath site) with drsg dry and intact.no hematoma noted.drsgs to le's are dry and intact.oriented to room environment.instructed pt to notify staff for any pain,sob,bleeding..or for any concerns at all.pt verb understanding of instructions
[2025-02-08] VITALS: BP 103/65; PULSE 74; RESP 26; O2SAT 96
[2025-02-08 01:00] VITALS: BP 100/60; PULSE 73; RESP 23; O2SAT 97
[2025-02-08 02:32] VITALS: RESP 18
[2025-02-08] MEDS: morphine 4 mg/mL SDV 1 mL 1 MG IVP (02:32)
[2025-02-08 03:46] VITALS: BP 107/60; PULSE 72; RESP 18; TEMP 36.6; O2SAT 98
[2025-02-08 04:09] LABS: Hematocrit 30.4 % (37-53); Hemoglobin 9.40 g/dL (11.27-16.99); Mean Corpuscular HGB Conc 30.9 g/dL (30-55); Mean Corpuscular Hemoglobin 25.6 pg (27-33); Mean Corpuscular Volume 82.8 fl (82-101); Nucleated Red Blood Cells % 0 %; Platelet Count 247 10^3/cmm (157-399); Red Blood Count 3.67 10^6/uL (3.85-5.65); White Blood Count 9.64 10^3/uL (3.29-11.43)
[2025-02-08 04:32] LABS: Magnesium 1.9 mg/dL (1.7-2.3)
[2025-02-08 04:37] LABS: Alanine Aminotransferase 24 U/L (0-41); Albumin Level 3.4 g/dL (3.5-5.2); Alkaline Phosphatase 52 U/L (40-130); Anion Gap 18.1 (5-19); Aspartate Amino Transferase 45 U/L (0-40); Blood Urea Nitrogen 15 mg/dL (8-23); Calcium 8.7 mg/dL (8.5-10.5); Carbon Dioxide 25 mmol/L (22-29); Chloride 102 mmol/L (98-107); Creatinine Clr Calc Pharmacy 85.1458; Globulin 2.2 g/dL (1.3-4.6); Glucose 93 mg/dL (65-115); Osmolality Calculated 293 mOsm/kg (285-295); Potassium 4.1 mmol/L (3.5-5.1); Sodium 141 mmol/L (136-145); Total Protein 5.6 g/dL (6.6-8.7)
[2025-02-08] MEDS: cefepime 1,000 mg SDV 1000 MG IVP (05:35)
[2025-02-08 07:42] VITALS: BP 100/56; PULSE 74; RESP 23; TEMP 36.6; O2SAT 93
[2025-02-08] MEDS: cyanocobalamin 1,000 mcg/mL SDV 1000 MCG IM (09:08)
[2025-02-08] MEDS: heparin 5,000 unit/mL INJ 1 mL 5000 UNIT SUBCUT (09:08)
[2025-02-08] MEDS: pantoprazole 40 mg SDV IVP (09:09)
--- NOTE | 2025-02-08 11:49 | P.DS_ITS ---
Discharge Providers Date of Admission: 02/05/25 03:45 Date of Discharge: February 08, 2025 Attending Provider at Admission: Gualberto Rutherford M.D Attending Provider at Discharge: Gualberto Rutherford M.D Primary Care Provider: Eliot Tamez DO Diagnoses at Discharge Discharge Diagnosis 1. ST elevation (STEMI) myocardial infarction: 2. Cardiogenic shock: 3. Hardware complicating wound infection: 4. Diabetes: 5. Peripheral vascular disease: 6. Atrial fibrillation: Reason for Visit Reason for Visit: CP head,back hurting Brief History: Kobe Gardner is a 74 year old male with past medical history of peripheral artery disease, CAD with CABG and prior stent and SVG to RCA has presented with chest discomfort that started overnight. Radiating to the back and to epigastric area. 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 EKG shows inferior leads ST elevation. Patient is hypotensive consistent with cardiogenic shock. On Levophed currently. Hospital Course Hospital Course Patient had totally occluded SVG to circumflex artery and underwent successful revascularization with 1 stent. He stayed on Levophed overnight. Slowly requirements improved. EF was 35 to 40% on echocardiogram. He also went into atrial fibrillation. At time of discharge he was sent home on Eliquis and Plavix. Medicine team was consulted for help with medical management and antibiotics. Patient recovered well and discharged home in a stable condition. Physical Exam Narrative: GENERAL: Patient is alert NECK: No jugular vein distension. [] HEENT: No cyanosis. No icterus. No pallor. [] HEART: Regular S1 and S2. Grade 3/6 systolic murmur LUNGS: Clear to auscultate bilaterally. [] CENTRAL NERVOUS SYSTEM: Grossly nonfocal. [] EXTREMITIES: Lower extremities with no edema Urinary Catheter Management: Shine: Cath Placed During This Visit: yes Reason for Continuing Indwelling Catheter: Accurate Measurement of Urinary Output in Critically Ill Patients Urinary Catheter Date of Insertion: 02/05/25 Urinary Catheter Time of Insertion: 12:24 Discharge Data Studies Completed and Pending Completed Studies During Hospitalization Category Date Time Status XR chest 1V [id number] Routine Exams 02/06/25 09:27 Completed XR chest 1V portable [id number] QAM Exams 02/07/25 06:00 Completed XR chest 1V portable [id number] Stat Exams 02/05/25 01:39 Completed CV. echo complete* [id number] Routine Ultrasound 02/05/25 08:51 Completed Pending at discharge Category Date Time Status [employer]ER request for service Stat Exams 02/05/25 02:07 Taken Blood Culture Stat Lab 02/05/25 06:17 Results Urine Culture Routine Lab 02/06/25 13:55 Received Radiology Impressions Chest X-Ray 02/07/25 06:00 IMPRESSION: 1. Bilateral pulmonary infiltrates unchanged. Mild cardiac enlargement stable Laboratory Results WBC 9.64 10^3/uL (3.29-11.43) 02/08/25 02:49 Corrected WBC Cancelled 02/06/25 03:30 RBC 3.67 10^6/uL (3.85-5.65) L 02/08/25 02:49 Hgb 9.40 g/dL (11.27-16.99) L 02/08/25 02:49 Hct 30.4 % (37-53) L 02/08/25 02:49 MCV 82.8 fl (82-101) 02/08/25 02:49 MCH 25.6 pg (27-33) L 02/08/25 02:49 MCHC 30.9 g/dL (30-55) 02/08/25 02:49 RDW 16.3 % (12.1-15.1) H 02/08/25 02:49 Plt Count 247 10^3/cmm (157-399) 02/08/25 02:49 MPV 10.9 fL (7.4-10.4) H 02/08/25 02:49 Gran % Cancelled 02/06/25 03:30 Neut % (Auto) 76.4 % 02/08/25 02:49 Lymph % (Auto) 14.6 % 02/08/25 02:49 [place] % (Auto) 6.5 % 02/08/25 02:49 Eos % (Auto) 1.5 % 02/08/25 02:49 Baso % (Auto) 0.4 % 02/08/25 02:49 Neut # (Auto) 7.36 10^3/uL (1.8-7.7) 02/08/25 02:49 Lymph # (Auto) 1.4 10^3/uL (0.8-4.8) 02/08/25 02:49 [place] # (Auto) 0.6 10^3/uL (0.2-0.9) 02/08/25 02:49 Eos # (Auto) 0.1 10^3/uL (0.0-0.8) 02/08/25 02:49 Baso # (Auto) 0.0 10^3/uL (0.0-0.1) 02/08/25 02:49 Absolute Gran (auto) Cancelled 02/06/25 03:30 Nucleated RBC % (auto) 0 % 02/08/25 02:49 Nucleated RBCs # 0.0 /100WBC 02/08/25 02:49 APTT 37.7 SECONDS (23.9-36.7) H 02/05/25 09:16 Sodium 141 mmol/L (136-145) 02/08/25 02:49 Potassium 4.1 mmol/L (3.5-5.1) 02/08/25 02:49 Chloride 102 mmol/L (98-107) 02/08/25 02:49 Carbon Dioxide 25 mmol/L (22-29) 02/08/25 02:49 Anion Gap 18.1 (5-19) 02/08/25 02:49 BUN 15 mg/dL (8-23) 02/08/25 02:49 Creatinine 0.5 mg/dL (0.7-1.2) L 02/08/25 02:49 GFR Calculation Not Reportable 02/08/25 02:49 Glucose 93 mg/dL (65-115) 02/08/25 02:49 POC Glucose 141 mg/dL (70-110) H 02/08/25 11:04 Estimat Average Glucose 128 02/05/25 04:06 Hemoglobin A1c 6.1 % (4.0-6.0) H 02/05/25 04:06 Calculated Osmolality 293 mOsm/kg (285-295) 02/08/25 02:49 Calcium 8.7 mg/dL (8.5-10.5) 02/08/25 02:49 Magnesium 1.9 mg/dL (1.7-2.3) 02/08/25 02:49 Iron 37 ug/dL (59-158) L 02/05/25 04:06 TIBC 206 mcg/dl 02/05/25 04:06 % Saturation 17.9 % (20-50) L 02/05/25 04:06 Unsat Iron Binding 169 ug/dL (112-347) 02/05/25 04:06 Total Bilirubin 0.6 mg/dL (0.15-1.2) 02/08/25 02:49 AST 45 U/L (0-40) H 02/08/25 02:49 ALT 24 U/L (0-41) 02/08/25 02:49 Alkaline Phosphatase 52 U/L (40-130) 02/08/25 02:49 Troponin T 5th Gen ng/L 1007 ng/L (0-15) H* 02/05/25 04:06 Troponin T Baseline 70 ng/L (0-15) H 02/05/25 01:40 Total Protein 5.6 g/dL (6.6-8.7) L 02/08/25 02:49 Albumin 3.4 g/dL (3.5-5.2) L 02/08/25 02:49 Globulin 2.2 g/dL (1.3-4.6) 02/08/25 02:49 Triglycerides 133 mg/dL (0-150) 02/06/25 04:50 Cholesterol 153 mg/dL (0-200) 02/06/25 04:50 LDL Cholesterol, Calc 104 mg/dL (50-129) 02/06/25 04:50 Total VLDL Cholesterol 27 mg/dL (0-30) 02/06/25 04:50 HDL Cholesterol 22 mg/dL (60-100) L 02/06/25 04:50 Cholesterol/HDL Ratio 6.95 mg/dL (1.0-5.00) H 02/06/25 04:50 Lipase 21 U/L (13-60) 02/05/25 01:40 Vitamin B12 208 pg/mL (232-1245) L 02/05/25 04:06 Folate 13.3 ng/mL (4.5-32.2) 02/06/25 04:50 Procalcitonin 0.12 ng/mL (0-0.5) 02/05/25 04:06 TSH 4.09 uIU/mL (0.27-4.20) 02/05/25 04:06 Urine Color Yellow (Yellow) 02/06/25 13:55 Urine Appearance Clear (CLEAR) 02/06/25 13:55 Urine pH 5.0 (5-7) 02/06/25 13:55 Ur Specific Ingram 1.009 (1.005-1.030) 02/06/25 13:55 Urine Protein Negative (Negative) 02/06/25 13:55 Urine Glucose (UA) Negative (Normal) 02/06/25 13:55 Urine Ketones Negative (Negative) 02/06/25 13:55 Urine Blood 3+ (Negative) A 02/06/25 13:55 Urine Nitrate Negative (Negative) 02/06/25 13:55 Urine Bilirubin Negative (Negative) 02/06/25 13:55 Urine Urobilinogen 0.2 mg/dL (Negative) 02/06/25 13:55 Ur Leukocyte Esterase 2+ (Negative) A 02/06/25 13:55 Urine RBC 21-50 /hpf (0-2) H 02/06/25 13:55 Urine WBC 21-50 /hpf (0-5) H 02/06/25 13:55 Ur Squamous Epith Cells 0-5 /hpf (0-5) 02/06/25 13:55 Amorphous Sediment Not Reportable 02/06/25 13:55 Urine Bacteria None seen /hpf (NONE) 02/06/25 13:55 Hyaline Casts 19.43 /lpf 02/06/25 13:55 Vancomycin Trough 16.5 ug/mL (10-15) H 02/07/25 04:53 Vitals Last Vital Signs Temp 97.8 F 02/08/25 07:42 Pulse 74 02/08/25 07:42 Resp 23 H 02/08/25 07:42 BP 100/56 02/08/25 07:42 Pulse Ox 93 02/08/25 07:42 O2 Del Method Nasal Cannula 02/08/25 07:42 O2 Flow Rate 3 02/07/25 15:00 Discharge Plan Discharge Patient Disposition: Home Condition: Stable Prescriptions: New amiodarone [Pacerone] 200 mg Tablet 200 mg PO BID Qty: 60 0RF atorvastatin 40 mg Tablet 40 mg PO BEDTIME Qty: 30 0RF linezolid 600 mg tablet 600 mg PO BID 10 Days Qty: 20 0RF Eliquis 5 mg tablet 5 mg PO BID Qty: 60 0RF dapagliflozin propanediol [Farxiga] 10 mg tablet 10 mg PO DAILY Qty: 30 0RF furosemide [Lasix] 20 mg tablet 20 mg PO DAILY PRN (Reason: weight gain) Qty: 14 0RF Rx Instructions: W Continued nitroglycerin 0.4 mg tablet, sublingual 0.4 mg sublingual Q5M PRN (Reason: heart pain) Rx Instructions: do not exceed 3 doses per episode pantoprazole 40 mg tablet,delayed release (DR/EC) See Rx Instructions .ROUTE .COMPLEX Qty: 90 3RF Dose Instruction: TAKE 1 TABLET BY MOUTH EVERY DAY FOR STOMACH Rx Instructions: TAKE 1 TABLET BY MOUTH EVERY DAY FOR STOMACH (DME) [employer] Utility Catheter 12 Fr misc See Rx Instructions .Route Qty: 12 0RF Rx Instructions: As directed clopidogrel 75 mg tablet See Rx Instructions .ROUTE .COMPLEX Qty: 90 3RF Dose Instruction: TAKE 1 TABLET BY MOUTH EVERY DAY Rx Instructions: TAKE 1 TABLET BY MOUTH EVERY DAY gabapentin 400 mg capsule 400 mg PO TID Qty: 90 5RF baclofen 20 mg tablet 20 mg PO QID PRN (Reason: muscle spasm/spasticity) Qty: 120 1RF levofloxacin 500 mg tablet 500 mg PO DAILY Qty: 14 0RF (DME) diabetic supplies, miscellan. Misc See Rx Instructions .Route Qty: 1 0RF Rx Instructions: glucometer, 120 strips, lancets Discontinued aspirin 81 mg tablet,delayed release (DR/EC) 81 mg PO DAILY metformin 500 mg tablet 1,000 mg PO BID@0900,2100 Qty: 180 3RF Discharge Order = DC NOW: Discharge Order (Routine); Ordered 02/08/25 Ordered By: Gualberto Rutherford Referrals: Laly Villegas NP [Nurse Practitioner, Cardiology] - 7-10 days Referral Note: We have notified your physician's clinic of the need for a follow-up appointment to be scheduled. If you have not heard from them within the next 2 business days, please call them directly. Eliot Tamez, DO [Primary Care Provider, Family Practice] Referral Note: We have notified your physician's clinic of the need for a follow-up appointment to be scheduled. If you have not heard from them within the next 2 business days, please call them directly. Discharge Diet: Cardiac Discharge Activity: Increase activity as tolerated Patient Instructions: Furosemide (By mouth) (Lasix), Amiodarone (By mouth) (Cordarone, Pacerone), Atorvastatin (By mouth), Linezolid (By mouth) (Zyvox), Apixaban (By mouth), Dapagliflozin (By mouth) (Farxiga), Heart Attack (DC), Heart Failure (DC), A-fib (Atrial Fibrillation) (DC), Coronary Angioplasty (DC), Chronic Wound Care (DC), CHF Stoplight, Opioid Safety, Post Angiogram Home Care Instructions, Post Heart Attack Stoplight, Patient Portal & Asher Instructions Activity Restrictions/Additional Instructions: Restrict fluid intake to less than 1500 cc, salt intake to less than 2 g daily. Advised to check his weight daily at home. Is advised that weight today would b e the dry weight and if body weight increases by around 5 pounds, patient is to take an extra dose of Lasix daily till body weight comes down to weight today. If not able to come down to dry body weight in 1 week, then is to call cardiology office for further recommendations. Patient was counseled in detail to take medications regularly as prescribed. Check your blood pressure daily at home maintain blood pressure diary. Take Plavix and Eliquis daily. Eliquis will be twice daily. Follow-up with primary team within next 1 week. Continue with Levaquin and linezolid like before and finish the course of antibiotics as prescribed prior to admission. Follow-up with Dr. Wild as an outpatient for screw removal as earlier. Discharge Attestations Time Spent in Discharge Care*: less than 30 min Quality Metrics Clinical Quality Measures [ Acute Myocardial Infaction { Clinical Trial Participant: No; Contraindication to aspirin: None; Aspirin prescribed; Contraindication to statin: None; Statin prescribed; Contraindication to PCI: None; PCI performed;}] Coding Level of Care Code Acute Code for [facility] Diagnoses ST elevation (STEMI) myocardial infarction I21.3 Cardiogenic shock R57.0 Hardware complicating wound infection T84.7XXA Diabetes E11.9 Peripheral vascular disease I73.9 Atrial fibrillation I48.91
[2025-02-08 12:22] VITALS: BP 116/57; PULSE 86; RESP 18; O2SAT 93
--- NOTE | 2025-02-08 13:23 | PC.NURSE ---
discharge instructions given and explained to pt and pt's cg daughter.they verb understanding of instructions.discharged via motorized w/c to exit at thsi time.daughter to drive pt home.
--- NOTE | 2025-02-08 13:24 | P.PN_ITS ---
Subjective 2 Subjective: No acute vents overnight. Today morning patient seen in [facility]. Denies any nausea, vomiting, headache. Has remained hemodynamically stable and afebrile. Vitals/I&O/Wt Last Vital Signs Temp 97.8 F 02/08/25 07:42 Pulse 86 02/08/25 12:22 Resp 18 02/08/25 12:22 BP 116/57 02/08/25 12:22 Pulse Ox 93 02/08/25 12:22 O2 Del Method Nasal Cannula 02/08/25 07:42 O2 Flow Rate 3 02/07/25 15:00 02/07/25 02/08/25 02/08/25 22:59 06:59 14:59 Intake Total 1114.25 / 1528.75 50 / 1578.75 490 / 490 Output Total 350 / 1500 250 / 1750 200 / 200 Balance 764.25 / 28.75 -200 / -171.25 290 / 290 Weight last 48 hrs Weight 73.5 kg Weight 71.5 kg Physical Exam 2 Narrative: General: No acute distress, AO x 3, chronically sick appearing cachectic HEENT: PERRLA, pupils bilaterally equal and reactive, pallors not present Chest: Normal vesicular breath sounds, no added sounds, equal good air entry bilaterally CVS: S1-S2 regular, no murmurs, no tachycardia, no gallops, no rubs Abdomen: Soft, nontender, no organomegaly, bowel sounds present Neuro: No focal deficits, no facial deformity, AO x3, power 5/5 in all limbs Ext: LE wounds wrapped in dressing Urinary Catheter Management: Shine: Cath Placed During This Visit: yes Reason for Continuing Indwelling Catheter: Accurate Measurement of Urinary Output in Critically Ill Patients Urinary Catheter Date of Insertion: 02/05/25 Urinary Catheter Time of Insertion: 12:24 Data 02/08/25 02:49 02/08/25 02:49 Micro: Microbiology 02/06/25 13:55 Urine Culture - Final Urine,Clean Catch A&P Assessment and plan 1. ST elevation (STEMI) myocardial infarction: Post PCI. Continue with aspirin, Plavix, statin. Not on beta-vivien as patient is in cardiogenic shock. Echocardiogram done. Results pending. 2. Cardiogenic shock: Levophed weaned off for later morning. DC IV fluids. Keep mean arterial pressure 65. 3. Hardware complicating wound infection: Multiple LE wounds, Outpatient on abbx with levaquin and linezolid Given leukocytosis, will switch to iv abx during hospital admission to cefepime and vancomycin chosen given most recent wound cx with Pseudomonas and MSSA Wound care consult while inpatient. Follow-up blood culture. 4. Diabetes: Appreciate A1c. Continue insulin sliding scale low-dose protocol. 5. Peripheral vascular disease: Plan: A-fib with RVR: Currently on amiodarone drip. Transition to 200 mg twice daily. Discussed with cardiology team regarding need for anticoagulation. Hypoxia: Could be in setting of mild congestive heart failure. Currently on NS at 75 cc/h. Appreciate intake and output. Cardiogenic shock is resolved. Will discontinue IV fluids. Appreciate x-ray. IV Lasix 40 mg one-time. Code status: Discussed until with patient's spouse and daughter at bedside. Full code. Consistent cardiac diet once patient is more awake. Protonix for PUD prophylaxis Heparin 5000 every 12 hourly for DVT prophylaxis. May transfer to [facility]. Discharge plan: Discussed in detail with patient and spouse at bedside. Discussed options of possible discharge to SNF which both patient and family declined. Plan to discharge home with home health once stable from primary team. Plan for the day: Care discussed detail with cardiology team. Continue with Plavix. Will discontinue aspirin on discharge and start on Eliquis 5 mg twice daily given atrial fibrillation postcardiac angiogram. Continue with amiodarone 200 mg twice daily. Patient is stable to be discharged from medical standpoint. Will plan to discharge on oral Levaquin and linezolid as he was on that prior to admission. Patient will follow-up with wound care and podiatry team as an outpatient for further management of chronic heel ulcer. DC Shine catheter. Fluid restriction on discharge. Lasix 20 mg oral as needed for weight gain of more than 5 pounds. Will plan to discontinue metformin and start on Farxiga on discharge. Care discussed in detail with the patient. He will to follow-up with primary care provider in 1 week and cardiology team in 2 weeks. Patient will need to monitor his blood pressures and body weight daily at home. Med rec completed. Discharge plan discussed in detail with the patient at bedside. All the questions were answered. Care discussed in detail with patient, family at bedside, cardiology team and RN taking care of the patient. Please call back with any questions. Thank you for involving us in care of Mr. Gardner. PDMP PDMP Reviewed: Not Reviewed Attestations 2 Medical Necessity Statement*: Patient required hospitalization for management of new congestive heart failure, ACS requiring PCI, A-fib with RVR in a patient chronically on antibiotics for heel ulcer Diagnoses ST elevation (STEMI) myocardial infarction I21.3 Cardiogenic shock R57.0 Hardware complicating wound infection T84.7XXA Diabetes E11.9 Peripheral vascular disease I73.9
== END 2025-02-08 13:25 | disposition home health service (06) | DRG 321 ==
LOC: ER 04:01 → ICU 04:07 → CSU 02-07 15:33
PROVIDERS: Student in an Organized Health Care Education/Training Program; Admitting Provider Internal Medicine; Emergency Provider Emergency Medicine; PCP Family Medicine; Visit Provider Internal Medicine
PROC: 027034Z Dilation of Coronary Artery, One Artery with Drug-eluting Intraluminal Device, Percutaneous Approach (ICD-10-PCS; principal; 2025-02-05 02:00)
PROC: 027034Z Dilation of Coronary Artery, One Artery with Drug-eluting Intraluminal Device, Percutaneous Approach (ICD-10-PCS; 2025-02-05 02:00)
DX: T82.857A Stenosis of other cardiac prosthetic devices, implants and grafts, initial encounter (principal); L89.513 Pressure ulcer of right ankle, stage 3; L89.613 Pressure ulcer of right heel, stage 3; R57.0 Cardiogenic shock; T84.69XA Infection and inflammatory reaction due to internal fixation device of other site, initial encounter; I25.810 Atherosclerosis of coronary artery bypass graft(s) without angina pectoris; G82.20 Paraplegia, unspecified; I38 Endocarditis, valve unspecified; Y71.8 Miscellaneous cardiovascular devices associated with adverse incidents, not elsewhere classified; E11.51 Type 2 diabetes mellitus with diabetic peripheral angiopathy without gangrene; I48.91 Unspecified atrial fibrillation; R09.02 Hypoxemia; I11.0 Hypertensive heart disease with heart failure; I50.9 Heart failure, unspecified; Y79.8 Miscellaneous orthopedic devices associated with adverse incidents, not elsewhere classified; Z95.1 Presence of aortocoronary bypass graft; Z95.5 Presence of coronary angioplasty implant and graft; E11.621 Type 2 diabetes mellitus with foot ulcer; L89.620 Pressure ulcer of left heel, unstageable; M62.838 Other muscle spasm; F41.9 Anxiety disorder, unspecified; E78.5 Hyperlipidemia, unspecified; Z79.84 Long term (current) use of oral hypoglycemic drugs; Z79.891 Long term (current) use of opiate analgesic; Z79.02 Long term (current) use of antithrombotics/antiplatelets; Z79.01 Long term (current) use of anticoagulants; G25.3 Myoclonus
CPT/HCPCS: 36415; 36416; 51702; 71045; 80048; 80053; 80061; 80202; 81001; 82607; 82746; 82962; 83036; 83540; 83550; 83690; 83735; 84145; 84443; 84484; 85025; 85347; 85730; 87040; 87086; 93005; 93306; 93455; 96365; 96372; 96374; 96375; 96376; 97165; 99152; 99153; 99214; 99291; C1725; C1760; C1769; C1874; C1887; C1894; C9606; G0269; J0283; J0692; J1200; J1644; J1815; J1938; J2250; J2270; J2470; J3010; J3373; J3420; J3490; J7030; J7050; J9999; Q9967

== ENCOUNTER → 2025-02-13 12:47 | Outpatient (BNVA) | payer MEDICARE, SELFPAY | PROVIDERS: PCP Family Medicine; Visit Provider Family Medicine | DX: Z78.9 Other specified health status (principal); N30.01 Acute cystitis with hematuria | CPT/HCPCS: 81003; 87086 ==

== ENCOUNTER → 2025-02-19 15:16 | Outpatient (BNVA) | payer MEDICARE, SELFPAY | PROVIDERS: PCP Family Medicine; Visit Provider Nurse Practitioner Family | DX: L97.509 Non-pressure chronic ulcer of other part of unspecified foot with unspecified severity (principal); I65.22 Occlusion and stenosis of left carotid artery; I73.9 Peripheral vascular disease, unspecified; G82.20 Paraplegia, unspecified; I10 Essential (primary) hypertension; Z79.01 Long term (current) use of anticoagulants; Z95.1 Presence of aortocoronary bypass graft; Z87.891 Personal history of nicotine dependence; I25.2 Old myocardial infarction | CPT/HCPCS: 99213 ==

== ENCOUNTER → 2025-02-20 13:55 | Outpatient (BNVA) | payer MEDICARE, SELFPAY | PROVIDERS: PCP Family Medicine; Visit Provider Thoracic Surgery (Cardiothoracic Vascular Surgery) | DX: I96 Gangrene, not elsewhere classified (principal); L89.513 Pressure ulcer of right ankle, stage 3; L89.612 Pressure ulcer of right heel, stage 2; L89.522 Pressure ulcer of left ankle, stage 2; L89.892 Pressure ulcer of other site, stage 2; L89.622 Pressure ulcer of left heel, stage 2; L89.890 Pressure ulcer of other site, unstageable | CPT/HCPCS: 11043; 97597; 97598; A6248 ==

== ENCOUNTER 2025-03-05 06:00 | Outpatient (CLI) | payer MEDICARE, SELFPAY | END 2025-03-05 06:01 | disposition home or self-care (01) | LOC: RAD 03-26 06:49 | PROVIDERS: PCP Family Medicine; Visit Provider Internal Medicine | DX: I96 Gangrene, not elsewhere classified (principal); L89.522 Pressure ulcer of left ankle, stage 2; L89.512 Pressure ulcer of right ankle, stage 2; L89.892 Pressure ulcer of other site, stage 2; L89.622 Pressure ulcer of left heel, stage 2; Z09 Encounter for follow-up examination after completed treatment for conditions other than malignant neoplasm | CPT/HCPCS: 97597; 97598 ==

== ENCOUNTER 2025-03-10 12:26 | Outpatient (CLI) | payer MEDICARE, SELFPAY ==
--- NOTE | 2025-03-10 14:30 | USR_ITS ---
PROCEDURE INFORMATION: Exam: US Duplex Bilateral Lower Extremity Arteries Exam date and time: 03/10/2025 1:04 PM Age: 75 years old Clinical indication: Pain; Leg, lower; Bilateral; Additional info: Bilat leg pain TECHNIQUE: Imaging protocol: Real-time ultrasound scan of the arteries of the bilateral lower extremities with 2-D qureshi scale, color Doppler flow and spectral waveform analysis. Images documented and saved. COMPARISON: CR XR ankle RT min 3V* [id number] 03/27/2024 10:12 AM FINDINGS: Right common femoral artery: No occlusion or significant stenosis. Normal waveform. Right superficial femoral artery: No occlusion or significant stenosis. Monophasic waveform. Right popliteal artery: No occlusion or significant stenosis. Monophasic waveform. Right calf/foot arteries: No occlusion or significant stenosis in the visualized arteries. Monophasic waveforms. Dorsalis pedis artery is patent. Left common femoral artery: No occlusion or significant stenosis. Monophasic waveform. Left superficial femoral artery: No occlusion or significant stenosis. Monophasic waveform. Left popliteal artery: No occlusion or significant stenosis. Monophasic waveform. Left calf/foot arteries: No occlusion or significant stenosis in the visualized arteries. Monophasic waveforms. Dorsalis pedis artery is patent. Soft tissues: Extensive superficial soft tissue swelling in the left leg. US/CV arterial duplex [facility] [id number] IMPRESSION: Extensive bilateral lower extremity atherosclerosis without evidence of high-grade arterial stenosis or occlusion.
== END 2025-03-10 12:27 | disposition home or self-care (01) ==
LOC: RAD 12:27
PROVIDERS: PCP Family Medicine; Visit Provider Internal Medicine
DX: I70.223 Atherosclerosis of native arteries of extremities with rest pain, bilateral legs (principal)
CPT/HCPCS: 93925

== ENCOUNTER → 2025-03-19 14:13 | Outpatient (BNVA) | payer MEDICARE, SELFPAY | PROVIDERS: PCP Family Medicine; Visit Provider Thoracic Surgery (Cardiothoracic Vascular Surgery) | DX: I96 Gangrene, not elsewhere classified (principal); L89.513 Pressure ulcer of right ankle, stage 3; L89.522 Pressure ulcer of left ankle, stage 2; L89.892 Pressure ulcer of other site, stage 2; L89.622 Pressure ulcer of left heel, stage 2; L89.890 Pressure ulcer of other site, unstageable | CPT/HCPCS: 97597; 97598 ==

== ENCOUNTER → 2025-04-02 13:47 | Outpatient (BNVA) | payer MEDICARE, SELFPAY | PROVIDERS: PCP Family Medicine; Visit Provider Thoracic Surgery (Cardiothoracic Vascular Surgery) | DX: I96 Gangrene, not elsewhere classified (principal); L89.513 Pressure ulcer of right ankle, stage 3; L89.522 Pressure ulcer of left ankle, stage 2; L89.892 Pressure ulcer of other site, stage 2; L89.622 Pressure ulcer of left heel, stage 2; L89.890 Pressure ulcer of other site, unstageable | CPT/HCPCS: 11042; 97597; 97598 ==

== ENCOUNTER 2025-04-07 20:24 | Emergency (ER) | payer MEDICARE, SELFPAY ==
--- OUTSIDE RECORDS SUMMARY | 2003-07-30 19:00 | XMS_ITS | Continuity of Care Document ---
Author Name [facility] Address [address] [place] [address] Organization [facility] Care Team Providers Care File Clerk Data Entry Name Role Phone [facility] Unavailable Unavailable Allergies, Adverse Reactions, Alerts Substance Category Reaction Severity Reaction type Status Date Reported Comments Source lidocaine Assertion Respiratory event Severe Drug allergy Active [facility]
[2025-04-07 20:47] VITALS: BP 122/72; PULSE 86; RESP 16; TEMP 37.1; O2SAT 97; BMI 22.8
--- NOTE | 2025-04-07 21:50 | XRR_ITS ---
PROCEDURE INFORMATION: Exam: XR Left Foot Exam date and time: 04/07/2025 9:53 PM Age: 75 years old Clinical indication: Other: Lt foot ulcers; Additional info: Left foot redness, R/O om TECHNIQUE: Imaging protocol: Radiologic exam of the left foot. 3 image(s) are submitted. Views: 3 or more views. COMPARISON: [place] [id number] 03/10/2025 1:04 PM FINDINGS: Bones/joints: osteopenia without fracture or dislocation or focal subcutaneous emphysema. No radiopaque foreign body seen. Extensive arterial vascular calcification. Dorsal soft tissue swelling in the left forefoot. Soft tissues: See Bones/joints finding. XR/XR foot LT min 3V* [id number] IMPRESSION: Osteopenia without fracture or dislocation or focal subcutaneous emphysema. No radiopaque foreign body seen. Extensive arterial vascular calcification. Dorsal soft tissue swelling in the left forefoot.
[2025-04-07 22:00] VITALS: BP 134/66; PULSE 77; O2SAT 96
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
[2025-04-07 22:55] LABS: Hematocrit 38.2 % (37-53); Hemoglobin 11.70 g/dL (11.27-16.99); Mean Corpuscular HGB Conc 30.6 g/dL (30-55); Mean Corpuscular Hemoglobin 24.8 pg (27-33); Mean Corpuscular Volume 80.9 fl (82-101); Nucleated Red Blood Cells % 0 %; Platelet Count 308 10^3/cmm (157-399); Red Blood Count 4.72 10^6/uL (3.85-5.65); White Blood Count 8.93 10^3/uL (3.29-11.43)
[2025-04-07 23:15] LABS: Alanine Aminotransferase 22 U/L (0-41); Albumin Level 3.7 g/dL (3.5-5.2); Alkaline Phosphatase 77 U/L (40-130); Anion Gap 17.2 (5-19); Aspartate Amino Transferase 18 U/L (0-40); Blood Urea Nitrogen 14 mg/dL (8-23); Calcium 9.3 mg/dL (8.5-10.5); Carbon Dioxide 27 mmol/L (22-29); Chloride 100 mmol/L (98-107); Creatinine Clr Calc Pharmacy 78.2095; Globulin 3.3 g/dL (1.3-4.6); Glucose 231 mg/dL (65-115); Osmolality Calculated 298 mOsm/kg (285-295); Potassium 4.2 mmol/L (3.5-5.1); Sodium 140 mmol/L (136-145); Total Protein 7.0 g/dL (6.6-8.7)
== END 2025-04-08 00:17 | disposition home or self-care (01) ==
PROVIDERS: Emergency Provider Physician Assistant; PCP Family Medicine
DX: S91.302A Unspecified open wound, left foot, initial encounter (principal); X58.XXXA Exposure to other specified factors, initial encounter; I25.10 Atherosclerotic heart disease of native coronary artery without angina pectoris; E78.5 Hyperlipidemia, unspecified; I10 Essential (primary) hypertension; Z95.1 Presence of aortocoronary bypass graft; Z79.01 Long term (current) use of anticoagulants; Z79.02 Long term (current) use of antithrombotics/antiplatelets
CPT/HCPCS: 36415; 73630; 80053; 85025; 86140; 87040; 87070; 87075; 87077; 87186; 87205; 96365; 99284; J3373; J7050; J9999

== ENCOUNTER 2025-04-08 15:32 | Inpatient (IN) | payer MEDICARE, SELFPAY ==
--- OUTSIDE RECORDS SUMMARY | 2003-07-30 19:00 | XMS_ITS | Continuity of Care Document ---
Author Name [facility] Address [address] [place] [address] Organization [facility] Care Team Providers Care Roller Coaster Operator Name Role Phone [facility] Unavailable Unavailable Allergies, Adverse Reactions, Alerts Substance Category Reaction Severity Reaction type Status Date Reported Comments Source lidocaine Assertion Respiratory event Severe Drug allergy Active [facility]
--- OUTSIDE RECORDS SUMMARY | 2025-04-08 15:38 | XMS_ITS | Encounter Summary ---
Author Organization [employer] [facility] Address [address] [place] [address] Care Team Providers Care Power Wheelchair Mechanic Name Role Phone Eliot Tamez DO Primary Care Provider [phone] Encounter Details Date Type Department Care Team (Latest Contact Info) Description 01/28/2002 Outpatient Historical HIS [facility] Hair Rushing MD [address] [place] [address] OSTEOARTHROS NOS-UNSPEC (Primary Dx); ESOPHAGEAL REFLUX; Other Counseling Social History Tobacco Use Types Packs/Day Years Used Date Smoking Tobacco: Never Assessed Sex and Gender Information Value Date Recorded Sex Assigned at Not on file Legal Sex Male 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
--- OUTSIDE RECORDS SUMMARY | 2025-04-08 15:38 | XMS_ITS | Encounter Summary ---
Author Organization [employer] [facility] Address [address] [place] [address] Care Team Providers Care Snuff Packing Machine Operator Name Role Phone Eliot Tamez DO Primary Care Provider [phone] Encounter Details Date Type Department Care Team (Latest Contact Info) Description 01/02/2002 Outpatient Historical HIS [facility] Hair Rushing MD [address] [place] [address] ESOPHAGEAL REFLUX (Primary Dx); JOINT PAIN-MULT JTS Social History Tobacco Use Types Packs/Day Years Used Date Smoking Tobacco: Never Assessed Sex and Gender Information Value Date Recorded Sex Assigned at Not on file 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
--- OUTSIDE RECORDS SUMMARY | 2025-04-08 15:38 | XMS_ITS | Encounter Summary ---
Author Organization [employer] [facility] Address [address] [place] [address] Care Team Providers Care Industrial Servicer Name Role Phone Eliot Tamez DO Primary Care Provider [phone] Encounter Details Date Type Department Care Team (Latest Contact Info) Description 01/11/2002 Outpatient Historical HIS [facility] Hair Rushign MD [address] [place] [address] JOINT PAIN-UNSPEC (Primary Dx); SCREENING-LIPOID DISORDERS; SCREENING MAL NEOP-PROSTATE Social History Tobacco Use Types Packs/Day Years Used Date Smoking Tobacco: Never Assessed Sex and Gender Information Value Date Recorded Sex Assigned at Not on file Legal Sex Male 5:46 AM CLIENT RESOURCE SPECIALIST Gender Identity Not on file Sexual Orientation Not on file documented as of this encounter Plan of Treatment Not on file documented as of this encounter Visit Diagnoses Diagnosis Pain in joint, site unspecified- Primary Screening for lipoid disorders Special screening for malignant neoplasm of prostate documented in this encounter Care Teams Industrial Servicer Relationship Specialty Start Date End Date Eliot Tamez DO [address] [place] [address] PCP - General Family Practice 11/14/20 documented as of this encounter
--- OUTSIDE RECORDS SUMMARY | 2025-04-08 15:38 | XMS_ITS | Clinical Summary ---
Author Organization [facility] Address [address] [place] [address] Phone Care Team Providers Care Hand Molder Meat Name Role Phone JoiEliot newton Primary Care Provider [phone] Allergies Active Allergy Reactions Criticality Noted Date [...] fracture of first thoracic vertebra, initial encounter ([facility]) Take 0.5-1 Tablets (2.5-5 mg) by mouth [...] on file Legal Sex Male 4:17 AM NECK FITTER Gender Identity Not on file Sexual Orientation [...] (1 - 1-dose 75+ series) 2026 Insurance [facility] [id number] [place] [id number] Care Teams Hand Molder Meat Relationship Specialty Start Date End Date Eliot Tamez DO [address] [place] [address] PCP - General Family Practice 11/14/20
--- OUTSIDE RECORDS SUMMARY | 2025-04-08 15:38 | XMS_ITS | Clinical Summary ---
Author Organization [facility] Address [address] [place] [address] Phone Care Team Providers Care Salvage Engineer Name Role Phone Joi Eliot Sanchez DO Primary Care Provider [phone] Allergies Active Allergy Reactions Criticality Noted Date [...] fracture of first thoracic vertebra, initial encounter ([facility]) Take 0.5-1 Tablets (2.5-5 mg) [...] on file Legal Sex Male 5:46 AM ORDER TAKERS SUPERVISOR Gender Identity Not on file Sexual Orientation [...] 1-dose 75+ series) 2026 Insurance [employer] [place] [id number] [place] [employer] [place] [id number] Advance Directives For more information, please contact: [phone] * Full Code (Latest Code Status on File) Date Activated Date Inactivated Comments 10/12/2020 2:10 PM 11/06/2020 2:02 PM * Full Code Date Activated Date Inactivated Comments 10/03/2020 12:16 AM 10/04/2020 12:13 AM Care Teams Salvage Engineer Relationship Specialty Start Date End Date Eilot Tamez DO [address] [place] [id number] PCP - General Family Practice 11/14/20
[2025-04-08 16:17] VITALS: BP 132/72; PULSE 70; RESP 19; TEMP 36.7; O2SAT 99
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
[2025-04-08 17:38] VITALS: BP 132/72; PULSE 70; RESP 19; TEMP 36.7; O2SAT 99
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
[2025-04-08] MEDS: dextrose 5%-sod chloride 0.45% 1,000 ML 75 ML IV (18:13)
[2025-04-08] MEDS: piperacillin-tazobactam 3.375 GM in sodium chloride 0.9% (plus) 50 ML IV (18:14)
[2025-04-08 20:00] VITALS: BP 113/57; PULSE 60; RESP 16; TEMP 36.8; O2SAT 96
[2025-04-08 21:21] LABS: Glucose 212 mg/dL (65-115)
--- NOTE | 2025-04-08 21:29 | PC.NURSE ---
2100 POC glucose: First 2 readings on the same hand, different finger read HI . Asked SAP SENIOR DEVELOPER to recheck on the other hand, that reading was 377, put in order for stat glucose lab draw to verify accuracy. Lab draw came back at 212, dosed evening insulin off of the lab draw.
[2025-04-09] VITALS: BP 103/50; PULSE 64; RESP 17; TEMP 36.8; O2SAT 93
[2025-04-09] MEDS: piperacillin-tazobactam 3.375 GM in sodium chloride 0.9% (plus) 50 ML IV ×3 (01:01→16:32)
[2025-04-09 04:00] VITALS: BP 112/64; PULSE 60; RESP 17; TEMP 36.9; O2SAT 96
[2025-04-09 04:47] LABS: Hematocrit 35.5 % (37-53); Hemoglobin 10.80 g/dL (11.27-16.99); Mean Corpuscular HGB Conc 30.4 g/dL (30-55); Mean Corpuscular Hemoglobin 25.2 pg (27-33); Mean Corpuscular Volume 82.9 fl (82-101); Nucleated Red Blood Cells % 0 %; Platelet Count 284 10^3/cmm (157-399); Red Blood Count 4.28 10^6/uL (3.85-5.65); White Blood Count 8.48 10^3/uL (3.29-11.43)
[2025-04-09 05:15] LABS: Anion Gap 14.1 (5-19); Blood Urea Nitrogen 13 mg/dL (8-23); Calcium 9.1 mg/dL (8.5-10.5); Carbon Dioxide 27 mmol/L (22-29); Chloride 103 mmol/L (98-107); Creatinine Clr Calc Pharmacy 76.5463; Glucose 159 mg/dL (65-115); Osmolality Calculated 293 mOsm/kg (285-295); Potassium 4.1 mmol/L (3.5-5.1); Sodium 140 mmol/L (136-145)
[2025-04-09 07:35] VITALS: BP 121/65; PULSE 63; RESP 15; TEMP 37.1; O2SAT 94
--- NOTE | 2025-04-09 09:20 | PC.CHAP ---
Pastoral Care Encounter/Spiritual Assessment Type of Contact [] Declined internal combustion engine assembler visit [] Patient/Family/Request visit [] Outpatient visit [] Follow-up visit [] Physician referral [] Code/Alert [x] Routine visit [] Staff referral [] Actively dying [] Patient sleeping [] Family support [] [] Out of room [] Palliative care [] [] Receiving care in room [] Pre-surgical visit [] Trauma [] Long length of stay [] ICU visit [] Other: Relational/Emotional Strength [x] Patient feels connected with others/family/visitors/staff [] Distress [] Loneliness/isolation [] Abandonment Spirituality of Patient [x] Person of Rosalinda [] Attends Restorationism of their Rosalinda [x] Believes in Prayer [] Reads Bible or Roman Catholic materials [] There are Spiritual issues to be addressed 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 Interventions [x] Prayer [x] Active listening [] Non-anxious presence [x] Spiritual/emotional support [] Crisis/trauma care [] Spiritual counseling [] Bereavement support [] Provided bereavement packet [] Provided Bible/devotional materials [] Provided toy/stuffed animal, coloring book to patient or family member [] Provided Communion [] Anointing/[place] [] Salvation [x] Completed spiritual assessment [] Other: Impact on Illness or Injury [] Angry [] Fearful [] Anxious [] Often cries [] Exhaustion [] Unable to work [] Unable to attend christian [] Unable to walk/stand [] Unable to read [] Unable to drive [] Unable to eat/drink [] Unable to sleep [] Unable to be with family [] Patient intubated [] Other: Summary Time spent with patient 5 min
--- NOTE | 2025-04-09 11:16 | P.PN_ITS ---
Subjective 2 Subjective: Patient seen at bedside resting comfortably. No overnight events. Vitals/I&O/Wt Last Vital Signs Temp 98.7 F 04/09/25 07:35 Pulse 63 04/09/25 07:35 Resp 15 04/09/25 07:35 BP 121/65 04/09/25 07:35 Pulse Ox 94 04/09/25 07:35 O2 Del Method Room Air 04/09/25 07:35 04/08/25 04/09/25 04/09/25 22:59 06:59 14:59 Intake Total 212.5 / 212.5 1050 / 1262.5 360 / 360 Output Total 600 / 600 950 / 1550 Balance -387.5 / -387.5 100 / -287.5 360 / 360 Weight last 48 hrs Weight 142 lb Physical Exam 2 Narrative: BELOW IS A FOCUSED LOWER EXTREMITY EXAM GENERAL: A&O x 3 VASCULAR: DP/PT pulses diminished with delayed capillary refill. +2 pitting edema bilateral lower extremities DERMATOLOGICAL: Multiple full-thickness ulcerations bilateral lower extremities. Right medial malleolus wound shows orthopedic hardware at base of wound. Left decubitus heel ulcer shows 50% medial stable eschar no underlying fluctuance no active drainage no malodor negative probe to bone. Lateral 50% of wound shows mixed fibrogranular wound bed. No underlying fluctuance no active drainage. Negative probe to bone. Surrounding skin along lateral aspect of left heel surrounding the lateral border of the wound shows erythema. Left medial malleolus wound is mixed fibrogranular. Negative probe to bone. Surrounding erythema. No underlying fluctuance or signs of deep space abscess. Overall bilateral lower extremity wounds appear stable to the point that no debridement is warranted. MUSCULOSKELETAL: Ankle joint and hindfoot range of motion within normal limits bilaterally. No tenderness with palpation of medial, lateral or anterior ankle bilaterally. No tenderness with palpation of lateral ankle ligaments bilaterally. No pain with palpation of midfoot bilaterally. 5/5 muscle strength in all 4 quadrants of the lower extremity when tested against resistance. NEUROLOGICAL: Neurological sensation to the affected foot and ankle absent secondary to paraplegia Urinary Catheter Management: Shine: Cath Placed During This Visit: yes Reason for Continuing Indwelling Catheter: Acute Urinary Retention or Obstruction Urinary Catheter Date of Insertion: 04/08/25 Urinary Catheter Time of Insertion: 18:11 Data 04/09/25 04:31 04/09/25 04:31 A&P Assessment and plan 1. Peripheral vascular disease: 2. Pressure ulcer of left ankle, stage 3: 3. Pressure ulcer of right ankle, stage 3: 4. Pressure ulcer of left heel, unstageable: 5. Cellulitis: Plan: - Bilateral lower extremities ischemic pressure ulcers -Labs and vitals reviewed - VSS -Cultures pending preliminary showing gram-negative rods -Abx Vanco/Zosyn -Diet: Okay for diet from podiatry standpoint -Pain Mgmt: Per primary team -Weight bearing: Patient is paraplegic. -Dressings: Hydrofera Blue, dry sterile dressing to all wounds. Changed this a.m. 04/09/2025 -Continue current Abx therapy until ID and Sensitivity results -Trend labs -Discharge plan: To be determined -No surgical intervention by podiatry at this time. Wounds are all stable well adhered eschar with the exception of left medial malleoli wound. This has fibrotic stranding. No active drainage no underlying fluctuance. Negative probe to bone. There is cellulitis of left lower extremity with edema. E rythema and edema improved this morning. Continue IV antibiotic therapy and monitor for clinical improvement of cellulitis. -Podiatry will continue to round on patient daily and provide recommendations - Anticipate that erythema will be improved to the point that patient will be able to be discharged tomorrow 04/10/2025 on appropriate oral antibiotics. Preliminary culture showing gram-negative rods PDMP PDMP Reviewed: Not Reviewed Attestations 2 Medical Necessity Statement*: Needs continued IV antibiotic therapy. Anticipate discharge in coming days Coding Level of Care Code Acute Code for [facility] Diagnoses Peripheral vascular disease I73.9 Pressure ulcer of left ankle, stage 3 L89.523 Pressure ulcer of right ankle, stage 3 L89.513 Pressure ulcer of left heel, unstageable L89.620 Cellulitis L03.90
[2025-04-09 11:37] VITALS: BP 115/61; PULSE 58; RESP 18; TEMP 36.7; O2SAT 95
--- NOTE | 2025-04-09 12:13 | PM.PN ---
Subjective Subjective: Patient without complaints. 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 Left lower extremity with significantly less edema erythema and warmth today. Urinary Catheter Management: Shine: Cath Placed During This Visit: yes Reason for Continuing Indwelling Catheter: Acute Urinary Retention or Obstruction Urinary Catheter Date of Insertion: 04/08/25 Urinary Catheter Time of Insertion: 18:11 Data 04/09/25 04:31 04/09/25 04:31 A&P Assessment and plan 1. Pressure ulcer of left ankle, stage 3: 2. Pressure ulcer of left heel, unstageable: 3. Diabetes: 4. Non-healing ulcer of foot, unspecified laterality, unspecified ulcer stage: 5. Anxiety: 6. Atrial fibrillation: 7. Self-catheterizes urinary bladder: 8. Paraplegia: 9. Cellulitis: Plan: Greatly appreciate podiatry assistance. Spoke with Dr. Wild yesterday regarding continued antibiotics and no indication for debridement Continue IV vancomycin and Zosyn for another 24 hours Consult placed to Dr. Wild for podiatry PDMP PDMP Reviewed: Not Reviewed Attestations Medical Necessity Statement*: Patient with severe cellulitis requiring IV antibiotics Coding Level of Care Code Acute Code for Chg Fwd Diagnoses Pressure ulcer of left ankle, stage 3 L89.523 Pressure ulcer of left heel, unstageable L89.620 Diabetes E11.9 Non-healing ulcer of foot, unspecified laterality, unspecified ulcer stage L97.509 Laterality: unspecified laterality Non-pressure ulcer stage: unspecified non-pressure ulcer stage Anxiety F41.9 Atrial fibrillation I48.91 Self-catheterizes urinary bladder Z78.9 Paraplegia G82.20 Cellulitis L03.90
[2025-04-09 15:28] VITALS: BP 126/58; PULSE 53; RESP 17; TEMP 36.9; O2SAT 94
[2025-04-09 20:00] VITALS: BP 119/56; PULSE 66; RESP 16; TEMP 37.6; O2SAT 91
[2025-04-10] VITALS: BP 108/59; PULSE 64; RESP 16; TEMP 37.2; O2SAT 90
[2025-04-10] MEDS: piperacillin-tazobactam 3.375 GM in sodium chloride 0.9% (plus) 50 ML IV ×2 (01:36→09:08)
[2025-04-10 04:00] VITALS: BP 110/66; PULSE 69; RESP 17; TEMP 37.1; O2SAT 92
[2025-04-10 07:16] VITALS: BP 105/58; PULSE 59; RESP 16; TEMP 37; O2SAT 94
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
[2025-04-10 11:50] VITALS: BP 122/57; PULSE 61; RESP 16; TEMP 37.1; O2SAT 95
[2025-04-10 13:02] VITALS: BP 122/57; PULSE 61; RESP 16; TEMP 37.1; O2SAT 95
== END 2025-04-10 13:04 | disposition home or self-care (01) | DRG 602 ==
PROVIDERS: Internal Medicine; Admitting Provider Internal Medicine; PCP Family Medicine; Visit Provider Internal Medicine
DX: L03.116 Cellulitis of left lower limb (principal); L89.513 Pressure ulcer of right ankle, stage 3; L89.523 Pressure ulcer of left ankle, stage 3; G82.20 Paraplegia, unspecified; L89.620 Pressure ulcer of left heel, unstageable; E11.51 Type 2 diabetes mellitus with diabetic peripheral angiopathy without gangrene; F41.9 Anxiety disorder, unspecified; I48.91 Unspecified atrial fibrillation; I25.10 Atherosclerotic heart disease of native coronary artery without angina pectoris; I10 Essential (primary) hypertension; E78.5 Hyperlipidemia, unspecified; Z79.01 Long term (current) use of anticoagulants; Z79.02 Long term (current) use of antithrombotics/antiplatelets; Z87.891 Personal history of nicotine dependence
CPT/HCPCS: 36415; 36416; 51702; 80048; 82947; 82962; 85025; 96372; J1815; J2543; J7799; J9999

== ENCOUNTER → 2025-04-21 13:19 | Outpatient (BNVA) | payer MEDICARE, SELFPAY | PROVIDERS: PCP Family Medicine; Visit Provider Thoracic Surgery (Cardiothoracic Vascular Surgery) | DX: I96 Gangrene, not elsewhere classified (principal); L89.513 Pressure ulcer of right ankle, stage 3; L89.522 Pressure ulcer of left ankle, stage 2; L89.890 Pressure ulcer of other site, unstageable | CPT/HCPCS: 11042; 97597 ==

== ENCOUNTER → 2025-05-07 14:19 | Outpatient (BNVA) | payer MEDICARE, SELFPAY | PROVIDERS: PCP Family Medicine; Visit Provider Thoracic Surgery (Cardiothoracic Vascular Surgery) | DX: I96 Gangrene, not elsewhere classified (principal); L89.513 Pressure ulcer of right ankle, stage 3; L89.522 Pressure ulcer of left ankle, stage 2; L89.892 Pressure ulcer of other site, stage 2; L89.622 Pressure ulcer of left heel, stage 2; L89.890 Pressure ulcer of other site, unstageable | CPT/HCPCS: 97597; 97598 ==

== ENCOUNTER → 2025-05-26 10:50 | Outpatient (BNVA) | payer MEDICARE, SELFPAY | PROVIDERS: PCP Family Medicine; Visit Provider Thoracic Surgery (Cardiothoracic Vascular Surgery) | DX: I96 Gangrene, not elsewhere classified (principal); L89.513 Pressure ulcer of right ankle, stage 3; L89.522 Pressure ulcer of left ankle, stage 2; L89.892 Pressure ulcer of other site, stage 2; L89.622 Pressure ulcer of left heel, stage 2; L89.890 Pressure ulcer of other site, unstageable | CPT/HCPCS: 97597; 97598 ==

== ENCOUNTER → 2025-05-29 12:12 | Outpatient (BNVA) | payer MEDICARE, SELFPAY | PROVIDERS: PCP Family Medicine; Visit Provider Family Medicine | DX: R19.7 Diarrhea, unspecified (principal) | CPT/HCPCS: 87324; 87493 ==

== ENCOUNTER 2025-06-16 07:35 | Day surgery (SDC) | payer MEDICARE, SELFPAY ==
[2025-06-16 07:54] VITALS: BP 106/61; PULSE 88; RESP 18; TEMP 36.7; O2SAT 99
[2025-06-16 08:17] VITALS: BMI 23.6
--- NOTE | 2025-06-16 10:13 | W.PM.OPSUD ---
Surgery/Procedure H&P Update DATE OF PROCEDURE: June 16, 2025 DATE H&P PERFORMED: 05/29/25 H&P UPDATE INFORMATION: I have reviewed H&P completed within last 30 days, I have examined patient prior to procedure, No changes to prior documentation, H&P is in [facility] EMR on date indicated and Risks and benefits of the procedure reviewed PREOP DIAGNOSIS: Exposed hardware right ankle PLANNED PROCEDURE: Operation Date: 06/16/25 09:55 Proposed Procedures p Hardware Removal Ankle/Foot(Right) - Roberto Wild DPM
[2025-06-16 10:25] VITALS: BP 159/77; PULSE 66; RESP 16; O2SAT 97
[2025-06-16 10:30] VITALS: BP 159/76; PULSE 66; RESP 18; O2SAT 99
[2025-06-16] MEDS: ceFAZolin 2,000 mg SDV 2000 MG IVP (10:31)
[2025-06-16 10:35] VITALS: BP 146/73; PULSE 67; RESP 18; O2SAT 98
[2025-06-16 10:40] VITALS: BP 144/73; PULSE 62; RESP 16; O2SAT 98
--- NOTE | 2025-06-16 10:43 | P.BOP_ITS ---
Date of procedure: 06/16/25 Surgeon name: Dr. Roberto Wild DPM Health And Wellness Manager(s) name(s): Phuc Procedure(s) performed: Hardware removal right ankle Description of findings: retained orthopedic hardware Estimated blood loss: 5cc Tourniquet time: no tourniquet used Specimen(s) removed: Screw right ankle Post-operative diagnosis: Painful orthopedic hardware
--- NOTE | 2025-06-16 10:44 | P.OP_ITS ---
Operative Report Date of procedure: June 16, 2025 Surgeon: Roberto Wild DPM Procedure: Date of procedure: 06/16/2025 Pre-op diagnosis: Chronic ulceration right ankle Post-op diagnosis: Same Post-op findings: Orthopedic screw removed from base of wound Procedure done: Hardware removal right ankle CPT 89379 Implants: None Specimens removed: Orthopedic screw right ankle Surgeon: Dr. Roberto Wild DPM Regulator Mechanic: Phuc Estimated blood loss: 5 cc Tourniquet time: No tourniquet used Complications: None Patient is a 75-year-old male that has a history of chronic ulceration with hardware exposed. The patient has had the aforementioned chief complaint for some time. Conservative treatment measures have been attempted and the patient has opted for surgical intervention at this time. A lengthy discussion regarding the procedure, including risks and complications has been had with the patient and is noted in the recent clinic note. Written and verbal consent have been obtained. All patient questions have been answered to the patient?s satisfaction. No written or verbal guarantees have been given or implied. The patient has been NPO since midnight. The history has been reviewed and the history and physical is current. The signed consent was confirmed and placed in the patient chart. Patient imaging has been reviewed and is consistent with the diagnosis. Under mild sedation, the patient was brought into the operating room and placed on the table in the supine position. IV antibiotics were given by the anesthesia team as preoperative surgical prophylaxis. No sedation was performed. Site was anesthetized with 0.5% Marcaine plain. The operative extremity was then prepped and draped in the usual fashion and the following procedures and performed. Attention was directed to the right ankle where chronic ulceration was noted medially. Head of orthopedic screw was exposed. #15 blade was used to make a stab incision at the inferior border of the orthopedic screw. Screwdriver was then used to remove the screw from the ankle and passed from the operative field. Complete removal of screw was confirmed with fluoroscopy. Site was dressed with Xeroform, 4 x 4 gauze, Kerlix, Chirag. Hemostasis was achieved via manual compression. The patient tolerated the procedure and anesthesia well and without complication. The patient was transported from the operating room to the recovery room with vital signs stable and vascular status intact to all digits of the right foot. The patient was given both written and verbal instructions to to keep dressings/splint clean, dry and intact and to take pain medication as directed. The patient will follow-up in the outpatient setting at their scheduled appointment. The patient was discharged with my personal number and was instructed to call if any questions or issues should arise. They were discharged home once anesthesia criteria was met.
--- NOTE | 2025-06-16 11:28 | ANE.PACU2 ---
Inpatient post-anesthesia follow up: Airway intact: Yes Vital signs: Temperature 98.1 F Pulse Rate 62 Respiratory Rate 16 Blood Pressure 144/73 Pulse Oximetry 98 Oxygen Delivery Me thod Room Air Oxygen Flow Rate Fraction of Inspir ed Oxygen Hydration adequate: Yes Nausea and vomiting: No Pain level: 1 Mental status: Baseline
== END 2025-06-16 11:28 | disposition home or self-care (01) ==
PROVIDERS: PCP Family Medicine; Visit Provider Podiatrist Foot & Ankle Surgery
PROC: (CPT 20680; principal; 2025-06-16 09:45)
DX: L97.319 Non-pressure chronic ulcer of right ankle with unspecified severity (principal); K21.9 Gastro-esophageal reflux disease without esophagitis; Z79.02 Long term (current) use of antithrombotics/antiplatelets; E11.9 Type 2 diabetes mellitus without complications; I48.91 Unspecified atrial fibrillation; G82.20 Paraplegia, unspecified; I25.10 Atherosclerotic heart disease of native coronary artery without angina pectoris; I10 Essential (primary) hypertension; E78.5 Hyperlipidemia, unspecified; F41.9 Anxiety disorder, unspecified; Z95.1 Presence of aortocoronary bypass graft; I73.9 Peripheral vascular disease, unspecified
CPT/HCPCS: 20680; 36416; 82962; J0690; J7030

== ENCOUNTER → 2025-06-23 13:12 | Outpatient (BNVA) | payer MEDICARE, SELFPAY | PROVIDERS: PCP Family Medicine; Visit Provider Thoracic Surgery (Cardiothoracic Vascular Surgery) | DX: I96 Gangrene, not elsewhere classified (principal); L89.513 Pressure ulcer of right ankle, stage 3; L89.522 Pressure ulcer of left ankle, stage 2; L89.892 Pressure ulcer of other site, stage 2; L89.622 Pressure ulcer of left heel, stage 2; L89.890 Pressure ulcer of other site, unstageable | CPT/HCPCS: 11042; 11045; 97597; A6212 ==

== ENCOUNTER → 2025-07-08 15:19 | Outpatient (BNVA) | payer MEDICARE, SELFPAY | PROVIDERS: PCP Family Medicine; Visit Provider Family Medicine | DX: R19.7 Diarrhea, unspecified (principal) | CPT/HCPCS: 87493 ==

== ENCOUNTER 2025-07-09 15:51 | Inpatient (IN) | payer MEDICARE, SELFPAY ==
--- OUTSIDE RECORDS SUMMARY | 2025-05-27 12:00 | XMS_ITS ---
Author Organization [facility] Address [address] [place] [address] Care Team Providers Care Mason Apprentice Name Role Phone Eliot Tamez Primary Care Provider CHE Jenkins Unavailable [phone] ANNIE SIMS Unavailable [phone] REASON FOR VISIT Cysto SP Tube Placement @ [facility] Encounters Encounter Location Date Provider Diagnosis [facility] [address] [place] [facility] [place] [address] 05/27/2025 ANNIE SIMS Plan Of Treatment No Information Progress Notes * Kobe MCKEON LDOB: 1 (75 yo M)Acc No.[id number]:05/27/2025 Patient: Kobe LEO Daisy Provider: Ramya SIMS MD :1950 A ge:75 Y S ex:Male Date:05/27/2025 Address:[address] [place], [place] [id number] Pcp:Eliot Tamez * Billing Information: * Visit Code: * Procedure Codes: * Electronic signature of AUST IN MD BETHANY on 07/09/2025 at 08:36 PM SUPPLY PLANNER Sign off status: Pending * Provider: Ramya SIMS MD Date: Generated for Printi ng/Faxing/eTransmitting on: 1 09/09/2024 08:36 PM SUPPLY PLANNER
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
[2025-07-09 16:24] VITALS: BMI 20.5
--- NOTE | 2025-07-09 16:33 | XRR_ITS ---
PROCEDURE INFORMATION: Exam: XR Chest Exam date and time: 07/09/2025 5:53 PM Age: 75 years old Clinical indication: Pre-operative exam; Cardiovascular screening and respiratory screening exam; Additional info: Pre op TECHNIQUE: Imaging protocol: Radiologic exam of the chest. Views: 1 view. COMPARISON: CR XR chest 1V portable [id number] 02/07/2025 9:10 AM FINDINGS: Lungs: Unremarkable. No consolidation. Pleural spaces: Unremarkable. No pleural effusion. No pneumothorax. Heart/Mediastinum: Unremarkable. No cardiomegaly. Bones/joints: Sternotomy wires are noted. Unchanged thoracic spinal fixation hardware. Unchanged healed fracture involving the distal right clavicle. XR/XR chest 1V portable [id number] IMPRESSION: No acute findings.
[2025-07-09 16:44] VITALS: BP 143/69; PULSE 75; RESP 18; TEMP 36.8; O2SAT 97
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
--- NOTE | 2025-07-09 17:30 | ECG_ITS ---
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 [email or web address]
[2025-07-09 18:01] LABS: Glucose Urine UA 3+ (Normal); Nitrate Urine Positive (Negative); Specific Gravity, Urine 1.026 (1.005-1.030)
[2025-07-09 18:06] LABS: Universal Test for UA Present (0)
[2025-07-09 18:32] LABS: Hematocrit 36.2 % (37-53); Hemoglobin 10.80 g/dL (11.27-16.99); Mean Corpuscular HGB Conc 29.8 g/dL (30-55); Mean Corpuscular Hemoglobin 22.5 pg (27-33); Mean Corpuscular Volume 75.4 fl (82-101); Nucleated Red Blood Cells % 0 %; Platelet Count 339 10^3/cmm (157-399); Red Blood Count 4.80 10^6/uL (3.85-5.65); White Blood Count 11.25 10^3/uL (3.29-11.43)
[2025-07-09 18:53] LABS: Alanine Aminotransferase 10 U/L (0-41); Albumin Level 3.4 g/dL (3.5-5.2); Alkaline Phosphatase 73 U/L (40-130); Anion Gap 17.1 (5-19); Aspartate Amino Transferase 13 U/L (0-40); Blood Urea Nitrogen 12 mg/dL (8-23); Calcium 9.2 mg/dL (8.5-10.5); Carbon Dioxide 27 mmol/L (22-29); Chloride 99 mmol/L (98-107); Globulin 3.8 g/dL (1.3-4.6); Glucose 117 mg/dL (65-115); Magnesium 2.0 mg/dL (1.7-2.3); Osmolality Calculated 289 mOsm/kg (285-295); Potassium 4.1 mmol/L (3.5-5.1); Sodium 139 mmol/L (136-145); Total Protein 7.2 g/dL (6.6-8.7)
[2025-07-09 19:36] VITALS: BP 117/66; PULSE 85; RESP 17; TEMP 36.8; O2SAT 96
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
--- OUTSIDE RECORDS SUMMARY | 2025-07-09 20:35 | XMS_ITS | Clinical Summary ---
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
--- OUTSIDE RECORDS SUMMARY | 2025-07-09 20:36 | XMS_ITS | Encounter Summary ---
Author Organization [facility] 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
--- OUTSIDE RECORDS SUMMARY | 2025-07-09 20:36 | XMS_ITS | Clinical Summary ---
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 Gender Identity Not on file Sexual Orientation [...] 1-dose 75+ series) 2026 Insurance [employer] [place] [id number] [employer] [place] [id number] Advance Directives For more information, please contact: [phone] * Full Code (Latest Code Status on File) Date Activated Date Inactivated Comments 10/12/2020 2:10 PM 11/06/2020 2:02 PM * Full Code Date Activated Date Inactivated Comments 10/03/2020 12:16 AM 10/04/2020 12:13 AM Care Teams Furniture Installer Relationship Specialty Start Date End Date Eliot Tamez DO [address] [place] [id number] PCP - General Family Practice 11/14/20
--- OUTSIDE RECORDS SUMMARY | 2025-07-09 20:36 | XMS_ITS | Encounter Summary ---
Author Organization [facility] Address [address] [place] [address] Care Team Providers Care Fire Control Technician B Name Role Phone Eliot Tamez DO Primary Care Provider [phone] Encounter Details Date Type Department Care Team (Latest Contact Info) Description 01/11/2002 Outpatient Historical HIS [facility] Hair Rushing MD [address] [place] [address] JOINT PAIN-UNSPEC (Primary Dx); SCREENING-LIPOID DISORDERS; SCREENING MAL NEOP-PROSTATE Social History Tobacco Use Types Packs/Day Years Used Date Smoking Tobacco: Never Assessed Sex and Gender Information Value Date Recorded Sex Assigned at Not on file 

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
[2025-07-09 20:52] LABS: Estmated Average Glucose 148; Hemoglobin A1C 6.8 % (4.0-6.0)
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
[2025-07-09 23:46] VITALS: BP 115/53; PULSE 85; RESP 16; TEMP 36.8; O2SAT 96
[2025-07-10] VITALS: BP 108/56; PULSE 78; RESP 16; TEMP 37.6; O2SAT 94
[2025-07-10] MEDS: piperacillin-tazobactam 3.375 GM in sodium chloride 0.9% (plus) 50 ML IV ×4 (00:32→20:42)
[2025-07-10 04:00] VITALS: BP 109/41; PULSE 76; RESP 18; TEMP 37.4; O2SAT 95
[2025-07-10 07:25] LABS: Alanine Aminotransferase 11 U/L (0-41); Albumin Level 3.3 g/dL (3.5-5.2); Alkaline Phosphatase 74 U/L (40-130); Anion Gap 15.2 (5-19); Aspartate Amino Transferase 23 U/L (0-40); Blood Urea Nitrogen 10 mg/dL (8-23); Calcium 8.8 mg/dL (8.5-10.5); Carbon Dioxide 28 mmol/L (22-29); Chloride 101 mmol/L (98-107); Globulin 3.1 g/dL (1.3-4.6); Glucose 192 mg/dL (65-115); Magnesium 1.7 mg/dL (1.7-2.3); Osmolality Calculated 294 mOsm/kg (285-295); Potassium 4.2 mmol/L (3.5-5.1); Sodium 140 mmol/L (136-145); Total Protein 6.4 g/dL (6.6-8.7)
--- NOTE | 2025-07-10 07:33 | P.PN_ITS ---
Subjective 2 Subjective: Patient is a very pleasant 75-year-old male seen and examined at bedside on hospital rounds today. Patient sitting up in bed stating that he had low back pain but denied any new or worsening symptoms. Spoke with infectious disease Dr. Moeller who has graciously agreed for consultation, current recommendations for IV Zosyn pending surgical cultures that are expected be collected tomorrow. Vital signs remained stable, mildly elevated glucose 192, A1c 6.8. C-reactive protein 124.7, ESR pending. Will hold Lovenox until after surgery, this is substituted for Eliquis until patient discharges. Patient denies new or worsening symptoms this morning. MRI ordered yesterday, pending today. NPO midnight with plans for surgery with tomorrow. Patient understands and is agreeable to planned interventions, all questions and concerns addressed at the bedside today. Vitals/I&O/Wt Last Vital Signs Temp 99.4 F 07/10/25 04:00 Pulse 76 07/10/25 04:00 Resp 18 07/10/25 04:00 BP 109/41 07/10/25 04:00 Pulse Ox 95 07/10/25 04:00 O2 Del Method Room Air 07/09/25 23:46 07/09/25 07/10/25 07/10/25 22:59 06:59 14:59 Intake Total 50 / 50 Output Total 300 / 300 325 / 625 Balance -300 / -300 -275 / -575 Weight last 48 hrs Weight 59.477 kg Weight 59.477 kg Weight 59.506 kg Physical Exam 2 Const: COMMON NORMALS: patient oriented x3 OTHER: Thin, frail 75-year-old male sitting up in bed, pleasant and cooperative with exam. HENMT: COMMON NORMALS: normocephalic, Normal external nose present and moist oral mucous membranes HEAD & SCALP: normocephalic NOSE: Normal external nose present OTHER: Upper dentures in place Eye: COMMON NORMALS: Equal, round and reactive pupils present PUPIL: Yes Equal, round and reactive pupils present Neck/C-Spine: COMMON NORMALS: no JVD Resp: COMMON NORMALS: normal respiratory effort and clear to auscultation bilaterally AUSCULTATION: clear to auscultation bilaterally Cardio: COMMON NORMALS: no JVD, S1 normal heart sound present and S2 normal heart sound present HEART SOUNDS: S1 normal heart sound present, S2 normal heart sound present and Murmur heart sound present GI: COMMON NORMALS: Normal to inspection, nondistended, normoactive bowel sounds present and Soft to palpation PALPATION: Yes Soft to palpation Extremity: OTHER: Muscle wasting to bilateral lower extremities. Left foot with multiple wounds, large wound to heel and medial aspect with eschar, ankle wound and surrounding tissue with mild erythema, right ankle with exposed hardware. Neuro: COMMON NORMALS: patient oriented x3 Psych: COMMON NORMALS: mental status grossly normal, cooperative, normal affect and speech normal SPEECH: Yes normal speech Skin: OTHER: Please see extremity details, no other wounds/breakdown noticed on other extremities Urinary Catheter Management: Shine: Cath Placed During This Visit: yes Reason for Continuing Indwelling Catheter: Acute Urinary Retention or Obstruction Urinary Catheter Date of Insertion: 07/09/25 Urinary Catheter Time of Insertion: 17:24 Data 07/09/25 18:19 07/10/25 06:34 Micro: Microbiology 07/09/25 18:20 Blood Culture - Preliminary Blood SPECIMEN COLLECTED 07/09/25 18:19 Blood Culture - Preliminary Blood SPECIMEN COLLECTED A&P Assessment and plan 1. Pressure ulcer of left heel, unstageable: 2. Cellulitis: 3. Diabetes: 4. Non-healing ulcer of foot, unspecified laterality, unspecified ulcer stage: 5. Anxiety: 6. Atrial fibrillation: 7. Self-catheterizes urinary bladder: 8. Paraplegia: 9. Exposed orthopaedic hardware: 10. Type 2 diabetes mellitus with foot ulcer: 11. Chronic pain: Plan: Pressure Ulcers to Left foot/ankle - concern for osteo Right ankle wound with exposed hardware Cellulitis - Direct admission, appreciate consultation and management with Automobile Seat Cover Installer , tentative plans for I&D tomorrow - Pending Blood culture x 2, wound cultures in surgery, pending bone culture from wound care 07/09 - CRP 124.7, pending ESR - Greatly appreciate Infectious Disease Consultation and management with - Antibiotic therapy per Scott HEMPHILL for now - Out patient wound care - Pending MRI left foot/ankle with and without contrast Acute UTI, POA - Urine culture pending - Continue antibiotics as above Atrial Fibrillation Chronic anticoagulation - Rate controlled - Holding Eliquis, last dosing evening 07/08 - Continue Amiodarone 200mg Daily - VTE PPX with SQ lovenox - holding this evening dose in anticipation of surgery tomorrow - Monitor CAD Hyperlipidemia Hx of cardiac stents x2 earlier this year - Holding Plavix - Continue cardioprotective medications DM-II - Holding metformin - Medium-dose SSI, POC - Carb controlled diet - A1C 6.8 Anxiety - PRN alprazolam Chronic Urinary retention - Self caths at home - Pending urinalysis - Shine catheter Paraplegia Neuropathy and spasticity - Had botox injections in PENNY legs 07/07 - Continue Gabapentin 400mg TID VTE PPX: SQ lovenox GI PPX: PPI Code Status: PDMP PDMP Reviewed: Last Reviewed 07/09/25 18:01 by Juana Matthews PROSPECTING DRILLER HELPER Attestations 2 Medical Necessity Statement*: Admitting greater than 2 midnights expected due to left ankle and foot wounds with podiatry consultation and surgical interventions, cellulitis consultation, and complex medical management. Coding Level of Care Code 27879 Diagnoses Pressure ulcer of left heel, unstageable L89.620 Cellulitis L03.90 Diabetes E11.9 Non-healing ulcer of foot, unspecified laterality, unspecified ulcer stage L97.509 Laterality: unspecified laterality Non-pressure ulcer stage: unspecified non-pressure ulcer stage Anxiety F41.9 Atrial fibrillation I48.91 Self-catheterizes urinary bladder Z78.9 Paraplegia G82.20 Exposed orthopaedic hardware T84.498A Type 2 diabetes mellitus with foot ulcer E11.621; L97.509 Chronic pain G89.29
[2025-07-10 08:00] VITALS: BP 124/63; PULSE 72; RESP 16; TEMP 36.8; O2SAT 93
--- NOTE | 2025-07-10 09:37 | PC.PHAR ---
Pts' daughter, Loren takes care of his medications. She is unable to get us a list until later this evening so I contacted [facility] for current med list. Pt has stopped taking several of his medications. Note added into pharmacy notes after last fill date and day supply.
[2025-07-10 11:48] VITALS: BP 119/58; PULSE 70; RESP 16; TEMP 36.9; O2SAT 92
--- NOTE | 2025-07-10 15:00 | USR_ITS ---
PROCEDURE INFORMATION: Exam: US Duplex Left Lower Extremity Arteries Or Arterial Bypass Grafts Exam date and time: 07/10/2025 4:53 PM Age: 75 years old Clinical indication: Injury or trauma; Other: Ulcer; Wound, open; Left; Ankle and foot level; Vessel not specified; Additional info: Ischemic ulcer, please comment on waveforms. TECHNIQUE: Imaging protocol: Left Real-time duplex scan of the arteries or arterial bypass grafts of the left lower extremity with 2-D qureshi scale, color Doppler flow and spectral waveform analysis. Images documented and saved. COMPARISON: CR XR foot LT min 3V* [id number] 04/07/2025 9:53 PM FINDINGS: No pressures obtained due to open wound with bandages. All waveforms monophasic. Left common femoral artery: No occlusion or significant stenosis. Left superficial femoral artery: No occlusion or significant stenosis. Left popliteal artery: No occlusion or significant stenosis. Left calf/foot arteries: No occlusion or significant stenosis in the visualized arteries. PSV in cm/sec as follows: External Iliac: 63, 72, 67 BUS MECHANIC: 104 PFA: Not obtained. SFA:152, 179, 70 Popliteal: Not obtained Post tib: 22 Dorsalis pedis: 66 Mildly prominent groin node, questionable clinical significance. US/[place] [id number] IMPRESSION: No high-grade stenosis or occlusion. Monophasic waveforms throughout.
--- NOTE | 2025-07-10 16:54 | CTR_ITS ---
PROCEDURE INFORMATION: Exam: CTA Abdominal Aorta and Bilateral Lower Extremities (Run-off) With Contrast Exam date and time: 07/10/2025 5:58 PM Age: 75 years old Clinical indication: Other: Ulcers on left foot/ankle; Additional info: Left foot/minh concern osteo/bloodflow, vascular looking for runoff. Ortho looking to R/O osteo. TECHNIQUE: Imaging protocol: Computed tomographic angiography of the of the abdominal aorta, pelvis and bilateral lower extremities with contrast. 3D rendering (Not supervised by radiologist): MIP and/or 3D reconstructed images were created by the technologist. Radiation optimization: All CT scans at this facility use at least one of these dose optimization techniques: automated exposure control; mA and/or kV adjustment per patient size (includes targeted exams where dose is matched to clinical indication); or iterative reconstruction. Contrast material: [id number]; Contrast volume: 100 ml; Contrast route: INTRAVENOUS (IV); COMPARISON: CT abdomen pelvis w con* [id number] 12/14/2020 1:17 PM RADIATION DOSE METRICS: Total DLP (mGy-cm): 896.76 FINDINGS: Aorta: Aortic and coronary atherosclerosis. Celiac and mesenteric arteries: No occlusion or significant stenosis. Renal arteries: Shine catheter probable high-grade stenosis of left renal artery. Right iliac arteries: No occlusion or significant stenosis. Right femoral/popliteal arteries: See below Right infrapopliteal arteries: See below Left iliac arteries: No occlusion or significant stenosis. Left femoral/popliteal arteries: See below Left infrapopliteal arteries: See below Lungs: Bibasilar dependent change. Liver: No mass. Gallbladder and biliary ducts: Unremarkable. No calcified stones. No ductal dilation. Pancreas: Unremarkable. No mass. No ductal dilation. Spleen: Borderline splenomegaly measuring up to 12.5 cm in maximum craniocaudal dimension. Adrenal glands: Normal. No mass. Kidneys and ureters: [id number] hydroureteronephrosis on the left due to obstructing calculus in the distal ureter measuring up to 11 mm. Stomach and bowel: Large volume stool in colon with mild rectal thickening, can not exclude stercoral colitis. Appendix: No evidence of appendicitis. Urinary bladder: Unremarkable. No mass. Reproductive: Unremarkable as visualized. Intraperitoneal space: Unremarkable. No free air. No significant fluid collection. Lymph nodes: No lymphadenopathy. Bones/joints: Moderate degenerative changes of the lumbar vertebral bodies. Soft tissues: Small fat containing umbilical hernia. Other findings: Heavy atheromatous vascular calcification and relatively poor contrast opacification of the runoff vessels precludes definitive assessment of patency. Probable multifocal tandem [id number] grade stenosis of the bilateral SFA and popliteal arteries. Motion artifact also limits exam CT/CT angio abd aorta runof [id number] IMPRESSION: 1. Large volume stool in colon with mild rectal thickening, can not exclude stercoral colitis. 2. [id number]-[id number] hydroureteronephrosis on the left due to obstructing calculus in the distal ureter measuring up to 11 mm. 3. Heavy atheromatous vascular calcification and relatively poor contrast opacification of the runoff vessels precludes definitive assessment of patency. Probable multifocal tandem [id number]-yf-vahprbwf grade stenosis of the bilateral SFA and popliteal arteries.
[2025-07-10 17:03] VITALS: BP 117/62; PULSE 86; RESP 17; TEMP 37.5; O2SAT 93
[2025-07-10] MEDS: iohexol 350 mg/mL 500 mL Btl (per mL) IV (18:14)
--- NOTE | 2025-07-10 18:57 | P.PN_ITS ---
Subjective 2 Subjective: Patient seen at bedside. Resting comfortably. Vitals/I&O/Wt Last Vital Signs Temp 99.5 F 07/10/25 17:03 Pulse 86 07/10/25 17:03 Resp 17 07/10/25 17:03 BP 117/62 07/10/25 17:03 Pulse Ox 93 07/10/25 17:03 O2 Del Method Room Air 07/09/25 23:46 07/10/25 07/10/25 07/10/25 06:59 14:59 22:59 Intake Total 50 / 50 290 / 290 290 / 580 Output Total 325 / 625 750 / 750 Balance -275 / -575 290 / 290 -460 / -170 Weight last 48 hrs Weight 131 lb 2 oz Weight 131 lb 2 oz Weight 131 lb 3 oz Physical Exam 2 Narrative: BELOW IS A FOCUSED LOWER EXTREMITY EXAM GENERAL: A&O x 3 VASCULAR: DP/PT pulses diminished, monophasic DERMATOLOGICAL: Multiple full-thickness ulcerations to left foot most notably is posterior calcaneus and medial first metatarsal phalangeal joint. Bone is exposed at first metatarsal head. Surrounding erythema MUSCULOSKELETAL: Paraplegia NEUROLOGICAL: Neurological sensation to the affected foot and ankle is absent secondary to paraplegia Urinary Catheter Management: Shine: Cath Placed During This Visit: yes Reason for Continuing Indwelling Catheter: Acute Urinary Retention or Obstruction Urinary Catheter Date of Insertion: 07/09/25 Urinary Catheter Time of Insertion: 17:24 Data 07/09/25 18:19 07/10/25 06:34 Micro: Microbiology 07/09/25 18:19 Blood Culture - Preliminary Blood NEGATIVE TO DATE 07/09/25 18:20 Blood Culture - Preliminary Blood NEGATIVE TO DATE A&P Assessment and plan 1. Type 2 diabetes mellitus with foot ulcer: 2. Cellulitis: 3. Osteomyelitis: Plan: - Multiple wounds left foot concern for osteomyelitis -Labs and vitals reviewed -WBC 11.25 -ESR 71 -CRP 124 -VSS -Cultures bone cultures from wound care taken 07/09/2025 showing gram-negative rods and positive cocci in pairs as preliminary -Abx per ID recommendations -Diet: N.p.o. -Plan for OR debridement 07/11/2025 for infection source control -Plan for CT of left foot and ankle to evaluate extent of infection which will guide surgical treatment. Plan for surgery on 07/11/[address] findings -Given monophasic pulses to the left lower extremity and nature of wounds concern is for patient potential to heal any debridement performed. I believe the patient would benefit from angiogram/revascularization if possible during the inpatient setting, if not we will have to be referred to cardiology in a timely manner for outpatient evaluation and revascularization. Arterial duplex ordered. -Pain Mgmt: Per primary team -Dressings: Saline wet-to-dry -Continue current Abx therapy until ID and Sensitivity results -Trend labs -Discharge plan: To be determined -Podiatry will continue to round on patient daily and provide recommendations PDMP PDMP Reviewed: Not Reviewed Attestations 2 Medical Necessity Statement*: See hospitalist note Coding Level of Care Code Acute Code for [facility] Fwd Diagnoses Type 2 diabetes mellitus with foot ulcer E11.621; L97.509 Cellulitis L03.90 Osteomyelitis M86.9
[2025-07-10 20:00] VITALS: BP 95/59; PULSE 86; RESP 17; TEMP 37; O2SAT 94
--- NOTE | 2025-07-10 22:18 | PM.MISC ---
Miscellaneous Note Purpose of Documentation: patient awaiting OR intervention I&D of left foot tomorrow. T max 99.5F, no leukocytosis. MRI pending. CTA reviewed- incidentally Wsoq-dy-cqglzosp hydroureteronephrosis on the left due to obstructing calculus in the distal ureter measuring up to 11 mm. Consider urology evaluation. UA with >100 WBC,positive nitrate, 2+ leukocyte esterase, pending urine cx. Continue empiric Zosyn. Will follow
[2025-07-11] VITALS (12 sets, daily range): BP systolic 96–126; BP diastolic 50–74; PULSE 64–135; RESP 14–17; TEMP 36.2–37.2; O2SAT 94–97
[2025-07-11 05:15] LABS: Hematocrit 32.1 % (37-53); Hemoglobin 9.90 g/dL (11.27-16.99); Mean Corpuscular HGB Conc 30.8 g/dL (30-55); Mean Corpuscular Hemoglobin 22.9 pg (27-33); Mean Corpuscular Volume 74.1 fl (82-101); Nucleated Red Blood Cells % 0 %; Platelet Count 328 10^3/cmm (157-399); Red Blood Count 4.33 10^6/uL (3.85-5.65); White Blood Count 11.76 10^3/uL (3.29-11.43)
[2025-07-11] MEDS: piperacillin-tazobactam 3.375 GM in sodium chloride 0.9% (plus) 50 ML IV ×2 (05:36→20:07)
[2025-07-11] MEDS: DAPAGLIFLOZIN 10 MG TABLET PO (05:37)
[2025-07-11 05:38] LABS: Alanine Aminotransferase 12 U/L (0-41); Albumin Level 3.4 g/dL (3.5-5.2); Alkaline Phosphatase 67 U/L (40-130); Anion Gap 15.1 (5-19); Aspartate Amino Transferase 18 U/L (0-40); Blood Urea Nitrogen 9 mg/dL (8-23); Calcium 8.8 mg/dL (8.5-10.5); Carbon Dioxide 28 mmol/L (22-29); Chloride 101 mmol/L (98-107); Globulin 2.3 g/dL (1.3-4.6); Glucose 140 mg/dL (65-115); Magnesium 1.8 mg/dL (1.7-2.3); Osmolality Calculated 291 mOsm/kg (285-295); Potassium 4.1 mmol/L (3.5-5.1); Sodium 140 mmol/L (136-145); Total Protein 5.7 g/dL (6.6-8.7)
--- NOTE | 2025-07-11 07:37 | USR_ITS ---
US/CV ankle brachial index 26269 PROCEDURE INFORMATION: Exam: US Bilateral Noninvasive Physiologic Study of the Lower Extremity Arteries, Limited Exam date and time: 07/11/2025 9:31 AM Age: 75 years old Clinical indication: Condition or disease; Other: Non healing ulcers; Additional info: Concern for perfusion prior to surgery TECHNIQUE: Imaging protocol: Bilateral Limited bilateral noninvasive physiologic studies of lower extremity arteries. Waveforms were obtained and evaluated. Images were documented and archived. Exam is limited. COMPARISON: [place] [id number] 07/10/2025 4:53 PM FINDINGS: Ankle pulses could not be obtained on either side. Therefore no ISADORA could be calculated. The TBI on the right is 0.6. Given the extensive disease present the meaning of this finding is unknown. IMPRESSION: Extensive atherosclerotic disease with no pulse discernible at the ankle.
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
--- NOTE | 2025-07-11 11:41 | P.PN_ITS ---
Subjective 2 Subjective: Patient is a very pleasant 75-year-old male seen and examined at bedside on hospital rounds today. Spoke with patient about CTA results, 11 mm obstructing calculus in the distal ureter with left hydroureteronephrosis. Patient will have I&D left foot/ankle with today and then transfer for urologic intervention - hopefully to [place], currently pending acceptance. In review of patient's labs, white blood cell count 11.76, hemoglobin 9.90, creatinine 0.4. Vital signs are stable. Patient states now new complaints this morning. He stated he wanted to go home, but informed him that having urology interventions urgently is necessary. Appreciate cardiovascular consultation with with vascular calcification and poor runoff found on CTA, pending recommendations. We will continue inpatient management pending transfer. Vitals/I&O/Wt Last Vital Signs Temp 98.7 F 07/11/25 11:04 Pulse 135 H 07/11/25 11:04 Resp 16 07/11/25 04:00 BP 124/56 07/11/25 11:04 Pulse Ox 95 07/11/25 11:04 O2 Del Method Room Air 07/11/25 11:04 07/10/25 07/11/25 07/11/25 22:59 06:59 14:59 Intake Total 290 / 580 50 / 630 50 / 50 Output Total 1200 / 1200 300 / 1500 Balance -910 / -620 -250 / -870 50 / 50 Weight last 48 hrs Weight 59.421 kg Weight 59.477 kg Weight 59.477 kg Weight 59.506 kg Physical Exam 2 Const: COMMON NORMALS: patient oriented x3 OTHER: Thin, frail 75-year-old male sitting up in bed, pleasant and cooperative with exam. HENMT: COMMON NORMALS: normocephalic, Normal external nose present and moist oral mucous membranes HEAD & SCALP: normocephalic NOSE: Normal external nose present OTHER: Upper dentures in place Eye: COMMON NORMALS: Equal, round and reactive pupils present PUPIL: Yes Equal, round and reactive pupils present Neck/C-Spine: COMMON NORMALS: no JVD Resp: COMMON NORMALS: normal respiratory effort and clear to auscultation bilaterally AUSCULTATION: clear to auscultation bilaterally Cardio: COMMON NORMALS: no JVD, S1 normal heart sound present and S2 normal heart sound present HEART SOUNDS: S1 normal heart sound present, S2 normal heart sound present and Murmur heart sound present GI: COMMON NORMALS: Normal to inspection, nondistended, normoactive bowel sounds present and Soft to palpation PALPATION: Yes Soft to palpation Extremity: OTHER: Muscle wasting to bilateral lower extremities. Left foot with multiple wounds, large wound to heel and medial aspect with eschar, ankle wound and surrounding tissue with mild erythema, right ankle with exposed hardware. Neuro: COMMON NORMALS: patient oriented x3 OTHER: Paraplegia, with spasticity in bilateral lower extremity, absent sensation bilateral feet. Psych: COMMON NORMALS: mental status grossly normal, cooperative, normal affect and speech normal SPEECH: Yes normal speech Skin: OTHER: Please see extremity details, no other wounds/breakdown noticed on other extremities Urinary Catheter Management: Shine: Cath Placed During This Visit: yes Reason for Continuing Indwelling Catheter: Acute Urinary Retention or Obstruction Urinary Catheter Date of Insertion: 07/09/25 Urinary Catheter Time of Insertion: 17:24 Data 07/11/25 04:44 07/11/25 04:44 Micro: Microbiology 07/09/25 17:45 Urine Culture - Final Urine,Clean Catch 07/09/25 18:19 Blood Culture - Preliminary Blood NEGATIVE TO DATE 07/09/25 18:20 Blood Culture - Preliminary Blood NEGATIVE TO DATE A&P Assessment and plan 1. Pressure ulcer of left heel, unstageable: 2. Cellulitis: 3. Diabetes: 4. Non-healing ulcer of foot, unspecified laterality, unspecified ulcer stage: 5. Anxiety: 6. Atrial fibrillation: 7. Self-catheterizes urinary bladder: 8. Paraplegia: 9. Exposed orthopaedic hardware: 10. Type 2 diabetes mellitus with foot ulcer: 11. Chronic pain: Plan: Pressure Ulcers to Left foot/ankle with osteomyelitis Right ankle wound with exposed hardware Cellulitis - Direct admission, appreciate consultation and management with Fiber Worker , tentative plans for I&D tomorrow - Pending Blood culture x 2, wound cultures in surgery, pending bone culture from wound care 07/09 - CRP 124.7, ESR 71 - Greatly appreciate Infectious Disease Consultation and management with - Antibiotic therapy per ID, Zosyn for now - Will need continued ID Consultation upon transfer - Out patient wound care Peripheral Vascular Disease - Greatly appreciate cardiovascular consultation and management with , will need continued vascular consultation and management on transfer (hopefullly to [place] - this was communicated in transfer request) - CTA with runoff: Negative heavy atheromatous vascular calcification relatively poor contrast patient vacations of the runoff vessels precludes definitive assessment of patency. Probable multifocal tandem mild to moderate grade stenosis of the bilateral SFA and popliteal arteries Acute UTI, POA - Urine culture pending - Continue antibiotics as above Atrial Fibrillation Chronic anticoagulation - Rate controlled - Holding Eliquis, last dosing evening 07/08 - Continue Amiodarone 200mg Daily - VTE PPX with SQ lovenox - resume after surgery CAD Hyperlipidemia Hx of cardiac stents x2 earlier this year - Holding Plavix - this will need to be resumed at the earliest conveinance - Continue cardioprotective medications DM-II - Holding metformin - Medium-dose SSI, POC - Carb controlled diet - A1C 6.8 Anxiety - PRN alprazolam Chronic Urinary retention - Self caths at home - Shine catheter Paraplegia Neuropathy and spasticity - Had botox injections in PENNY legs 07/07 - Continue Gabapentin 400mg TID VTE PPX: SQ lovenox GI PPX: PPI Code Status: PDMP PDMP Reviewed: Last Reviewed 07/09/25 18:01 by Juana Matthews, NETWORK SUPPORT ADMINISTRATOR Attestations 2 Medical Necessity Statement*: Admitting greater than 2 midnights expected due to left ankle and foot wounds with podiatry consultation and surgical interventions, cellulitis consultation, and complex medical management. Coding Level of Care Code 72578 Diagnoses Pressure ulcer of left heel, unstageable L89.620 Cellulitis L03.90 Diabetes E11.9 Non-healing ulcer of foot, unspecified laterality, unspecified ulcer stage L97.509 Laterality: unspecified laterality Non-pressure ulcer stage: unspecified non-pressure ulcer stage Anxiety F41.9 Atrial fibrillation I48.91 Self-catheterizes urinary bladder Z78.9 Paraplegia G82.20 Exposed orthopaedic hardware T84.498A Type 2 diabetes mellitus with foot ulcer E11.621; L97.509 Chronic pain G89.29
--- NOTE | 2025-07-11 11:50 | W.PM.OPSUD ---
Surgery/Procedure H&P Update DATE OF PROCEDURE: July 11, 2025 DATE H&P PERFORMED: 07/09/25 H&P UPDATE INFORMATION: I have reviewed H&P completed within last 30 days, I have examined patient prior to procedure, No changes to prior documentation, H&P is in [facility] EMR on date indicated and Risks and benefits of the procedure reviewed PREOP DIAGNOSIS: osteomyelitis PLANNED PROCEDURE: Operation Date: 07/11/25 12:00 Proposed Procedures p Incision Bone Cortex Left Foot(Left) - Roberto Wild DPM
--- NOTE | 2025-07-11 12:23 | XR_ITS ---
WS: [id number] XR chest 1V portable [id number] REASON FOR EXAM: Post PICC insertion FINDINGS: Right arm PICC line placement The initial Placement of the right arm was short of optimal positioning. Positioning and length of the longer that was needed was discussed with the PICC line nurse over the phone. Initial PICC line was removed and the longer PICC line placed with its tip in the distal superior vena cava properly position for use. Other than the PICC line placement, the chest is unchanged compared to 07/09/2025. XR/XR chest 1V portable [id number] IMPRESSION: Right arm PICC line placement as above. Current PICC line is in proper position ready for use.
--- NOTE | 2025-07-11 12:34 | P.BOP_ITS ---
Date of procedure: 07-11-25 Surgeon name: Dr. Roberto Wild DPM Sales Development Executive(s) name(s): See intraop documentation Procedure(s) performed: Left foot incsion bone cortex, hardware removal righta ankle Description of findings: osteomyelitis left first metatarsal head Estimated blood loss: 10cc Tourniquet time: no tourniquet used Specimen(s) removed: bone culture left foot, orthopedic screw right ankle Post-operative diagnosis: osteomyelitis
--- NOTE | 2025-07-11 12:37 | PM.OP ---
Operative Report Date of procedure: July 11, 2025 Surgeon: Roberto Wild DPM Procedure: Date of procedure: 07/11/2025 Pre-op diagnosis: 1. Left foot first metatarsal osteomyelitis 2. Exposed orthopedic hardware right ankle Post-op diagnosis: Same Post-op findings: Necrotic changes surrounding first metatarsal phalangeal joint with necrosis down to level of bone. Osteomyelitis of first metatarsal extending to the mid diaphysis. Procedure done: 1. Incision bone cortex left foot CPT 56993 2. Hardware removal right ankle CPT 28023 Implants: None Specimens removed: Bone culture left foot, hardware culture right ankle Surgeon: Dr. Roberto Wild DPM Media Professional: Laly Estimated blood loss: 10 cc Tourniquet time: No tourniquet used Complications: None The patient presents with a severe foot infection involving left first metatarsophalangeal joint, characterized by erythema, swelling, and drainage. The infection is complicated by underlying conditions, including diabetes, peripheral vascular disease, which have contributed to the progression of the infection despite conservative management. Patient also has chronic ulceration to right medial ankle with orthopedic hardware exposed. Preoperative imaging and laboratory results indicate osteomyelitis, necessitating surgical intervention. The planned procedure is intended to address the infection, debride necrotic tissue, and, if necessary, assess the viability of surrounding structures to prevent further complications. The patient has been NPO since midnight. The history has been reviewed and the history and physical is current. The signed consent was confirmed and placed in the patient chart. Patient imaging has been reviewed and is consistent with the diagnosis. Under mild sedation, the patient was brought into the operating room and left on the gurney in the supine position. Patient is receiving antibiotics around the clock on the floor, Therefore, additional antibiotic prophylaxix was not administered. MAC sedation was then performed by the anesthesiateam. Bilateral extremities were then prepped and draped in standard fashion. The following procedures were then performed. Attention was directed to the right aspect of the medial ankle where full-thickness ulceration was visualized measuring 0.4 x 0.3 x 0.2 cm with orthopedic hardware exposed. Mosquito hemostat was used to bluntly dissect the wound to expose the entire head of the orthopedic screw. Lead Process Engineer was used to back out the screw from the right medial malleolus without incident. This was sent for culture to [facility]. Attention was then directed to the left foot where a full-thickness necrotic ulceration was noted along the medial aspect of the first metatarsal phalangeal joint. This was measured as 4.0 x 5.0 x 0.5 cm with positive probe to bone. Bone exposed with complete erosion of first metatarsal head. Rongeur was used to remove bone fragments from metatarsophalangeal joint region. #15 blade was used to incise bone cortex of first metatarsal at the level of the mid diaphysis. Dissection was carried out to expose the distal portion of the metatarsal which was completely eroded. Rongeur was used to remove devitalized portion of distal first metatarsal. Bone fragments were sent to micro for culture. #15 blade was used to excise necrotic tissue surrounding the wound. Site was irrigated with copious amounts of sterile saline via cystoscopy tubing. The left first metatarsophalangeal joint was noted to be completely destabilized at this point. Patient would benefit from hallux amputation. However, left hallux was left intact due to preservation of soft tissue for future flap closure if needed. Bleeding was minimal for lack of tourniquet usage. After excision of necrotic tissue the wound was packed with iodoform packing gauze and dressed with 4 x 4 gauze, Kerlix, Chirag bandage. Right ankle wound was dressed with Xeroform, 4 gauze, Kerlix, Chirag. The patient tolerated the procedure and anesthesia well and without complication. The patient was transported from the operating room to the recovery room with vital signs stable and vascular status intact to bilateral feet. The patient will be transferred back to the floor once anesthesia criteria is met. I will continue to round on and follow the patient in the inpatientsetting and provide recommendations to stabilize the patient for discharge.
--- NOTE | 2025-07-11 12:50 | ANE.PACU2 ---
Inpatient post-anesthesia follow up: Airway intact: Yes Vital signs: Temperature 97.6 F Pulse Rate 70 Respiratory Rate 16 Blood Pressure 122/58 Pulse Oximetry 94 Oxygen Delivery Me thod Room Air Oxygen Flow Rate Fraction of Inspir ed Oxygen Hydration adequate: Yes Nausea and vomiting: No Pain level: 1 Mental status: Baseline
--- NOTE | 2025-07-11 12:51 | PC.NURSE ---
1250 patient out of PACU, pt is getting a PICC line placed, then will be brought to the floor
--- NOTE | 2025-07-11 13:15 | PICC.NOTE ---
Single lumen PICC placed to right basilic vein. Referred to vascular access nurse for PICC placement due to need for IV antibiotics x 6 weeks. Risks and benefits discussed and informed consent obtained from patient prior to surgery. PICC to be placed in PACU. Right arm assessed with right basilic vein measuring 4.0 mm, straight, and apparent best choice for placement. Using sterile technique and MST, right basilic vein accessed x 1 stick. Mid-arm circumference measured 10 cm from right AC 28 cm. Initial PICC noted to be 3 cm short upon xray. PICC removed with new line inserted. Trimmed cath 35 cm with 0 cm external length noted. CXR shows tip in distal SVC, in good position for use per radiologist. Line secured with stat-lock. Insertion site covered with Biopatch and TSM. Report given to charge nurse, SHIRLEY Albrecht.
--- NOTE | 2025-07-11 14:46 | PC.SOCIAL ---
IMM update pg 2 of IMM updated and reviewed w/ patient. Copy provided and copy dated, initialed and placed in chart.
[2025-07-11] MEDS: HYDROcodone-acetaminophen 5-325 mg Tablet 1 TAB PO (20:07)
[2025-07-12] VITALS: BP 146/71; PULSE 73; RESP 17; TEMP 36.9; O2SAT 96
[2025-07-12] MEDS: piperacillin-tazobactam 3.375 GM in sodium chloride 0.9% (plus) 50 ML IV ×2 (04:07→13:50)
[2025-07-12] MEDS: DAPAGLIFLOZIN 10 MG TABLET PO (04:08)
[2025-07-12 04:51] LABS: Hematocrit 30.4 % (37-53); Hemoglobin 9.00 g/dL (11.27-16.99); Mean Corpuscular HGB Conc 29.6 g/dL (30-55); Mean Corpuscular Hemoglobin 22.1 pg (27-33); Mean Corpuscular Volume 74.7 fl (82-101); Nucleated Red Blood Cells % 0 %; Platelet Count 335 10^3/cmm (157-399); Red Blood Count 4.07 10^6/uL (3.85-5.65); White Blood Count 10.45 10^3/uL (3.29-11.43)
[2025-07-12 05:00] VITALS: BP 119/61; PULSE 64; RESP 15; TEMP 37.2; O2SAT 95
[2025-07-12 05:13] LABS: Alanine Aminotransferase 12 U/L (0-41); Albumin Level 3.3 g/dL (3.5-5.2); Alkaline Phosphatase 63 U/L (40-130); Anion Gap 11.1 (5-19); Aspartate Amino Transferase 14 U/L (0-40); Blood Urea Nitrogen 10 mg/dL (8-23); Calcium 9.0 mg/dL (8.5-10.5); Carbon Dioxide 31 mmol/L (22-29); Chloride 102 mmol/L (98-107); Globulin 3.0 g/dL (1.3-4.6); Glucose 111 mg/dL (65-115); Magnesium 2.0 mg/dL (1.7-2.3); Osmolality Calculated 290 mOsm/kg (285-295); Potassium 4.1 mmol/L (3.5-5.1); Sodium 140 mmol/L (136-145); Total Protein 6.3 g/dL (6.6-8.7)
[2025-07-12 07:41] VITALS: BP 115/55; PULSE 71; RESP 18; TEMP 36.8; O2SAT 95
--- NOTE | 2025-07-12 10:41 | PM.PN ---
Subjective Subjective: Patient is a very pleasant 75-year-old male seen and examined at bedside on hospital rounds today. Patient sitting up in bed stating that he had low back pain and buttocks pain overnight, denies any new or worsening symptoms this morning. Review of patient's labs hemoglobin stable 9.00, normal white count, normal creatinine 0.6. Working with transfer station operator at [place], pending acceptance patient will transfer for urologic interventions. Patient verbalized understanding and is in agreement with transfer, he would much rather go home but understands the medical necessity. Will continue dressing changes per Dr. Wild's instructions with saline to dry daily changes. Vitals/I&O/Wt Last Vital Signs Temp 98.2 F 07/12/25 07:41 Pulse 71 07/12/25 07:41 Resp 18 07/12/25 07:41 BP 115/55 07/12/25 07:41 Pulse Ox 95 07/12/25 07:41 O2 Del Method Room Air 07/12/25 07:41 07/11/25 07/12/25 07/12/25 22:59 06:59 14:59 Intake Total 240 / 364.5 200 / 564.5 570 / 570 Output Total 950 / 950 Balance -710 / -585.5 200 / -385.5 570 / 570 Weight last 48 hrs Weight 59.421 kg Weight 59.421 kg Physical Exam Const: COMMON NORMALS: patient oriented x3 OTHER: Thin, frail 75-year-old male sitting up in bed, pleasant and cooperative with exam. HENMT: COMMON NORMALS: normocephalic, Normal external nose present and moist oral mucous membranes HEAD & SCALP: normocephalic NOSE: Normal external nose present OTHER: Upper dentures in place Eye: COMMON NORMALS: Equal, round and reactive pupils present PUPIL: Yes Equal, round and reactive pupils present Neck/C-Spine: COMMON NORMALS: no JVD Resp: COMMON NORMALS: normal respiratory effort and clear to auscultation bilaterally AUSCULTATION: clear to auscultation bilaterally Cardio: COMMON NORMALS: no JVD, S1 normal heart sound present and S2 normal heart sound present HEART SOUNDS: S1 normal heart sound present, S2 normal heart sound present and Murmur heart sound present GI: COMMON NORMALS: Normal to inspection, nondistended, normoactive bowel sounds present and Soft to palpation PALPATION: Yes Soft to palpation Extremity: OTHER: Muscle wasting to bilateral lower extremities. PENNY feet wrapped, did not visualize wounds. Neuro: COMMON NORMALS: patient oriented x3 OTHER: Paraplegia, with spasticity in bilateral lower extremity, absent sensation bilateral feet. Psych: COMMON NORMALS: mental status grossly normal, cooperative, normal affect and speech normal SPEECH: Yes normal speech Skin: OTHER: Please see extremity details, no other wounds/breakdown noticed on other extremities Urinary Catheter Management: Shine: Cath Placed During This Visit: yes Reason for Continuing Indwelling Catheter: Acute Urinary Retention or Obstruction Urinary Catheter Date of Insertion: 07/09/25 Urinary Catheter Time of Insertion: 17:24 Data 07/12/25 04:07 07/12/25 04:07 Micro: Microbiology 07/09/25 17:45 Urine Culture - Final Urine,Clean Catch A&P Assessment and plan 1. Pressure ulcer of left heel, unstageable: 2. Cellulitis: 3. Diabetes: 4. Non-healing ulcer of foot, unspecified laterality, unspecified ulcer stage: 5. Anxiety: 6. Atrial fibrillation: 7. Self-catheterizes urinary bladder: 8. Paraplegia: 9. Exposed orthopaedic hardware: 10. Type 2 diabetes mellitus with foot ulcer: 11. Chronic pain: Plan: Pressure Ulcers to Left foot/ankle with osteomyelitis Right ankle wound with exposed hardware Cellulitis - Direct admission, appreciate consultation and management with [employer] Administrator , s/p I&D 07/11 - Daily left foot dressing changes with saline to dry per - Pending Blood culture x 2, wound cultures in surgery, pending bone culture from wound care 07/09 - CRP 124.7, ESR 71 - Greatly appreciate Infectious Disease Consultation and management with - Antibiotic therapy per ID, Zosyn for now - Will need continued ID Consultation upon transfer - Out patient wound care Peripheral Vascular Disease - Greatly appreciate cardiovascular consultation and management with , will need continued vascular consultation and management on transfer (hopefullly to [facility] - this was communicated in transfer request) - CTA with runoff: Negative heavy atheromatous vascular calcification relatively poor contrast patient vacations of the runoff vessels precludes definitive assessment of patency. Probable multifocal tandem mild to moderate grade stenosis of the bilateral SFA and popliteal arteries Acute UTI, POA - Urine culture pending - Continue antibiotics as above Atrial Fibrillation Chronic anticoagulation - Rate controlled - Holding Eliquis, last dosing evening 07/08 - Continue Amiodarone 200mg Daily - VTE PPX with SQ lovenox CAD Hyperlipidemia Hx of cardiac stents x2 earlier this year - Holding Plavix - this will need to be resumed at the earliest conveinance - Continue cardioprotective medications DM-II - Holding metformin - Medium-dose SSI, POC - Carb controlled diet - A1C 6.8 Anxiety - PRN alprazolam Chronic Urinary retention - Self caths at home - Shine catheter Paraplegia Neuropathy and spasticity - Had botox injections in PENNY legs 07/07 - Continue Gabapentin 400mg TID VTE PPX: SQ lovenox GI PPX: PPI Code Status: PDMP PDMP Reviewed: Last Reviewed 07/09/25 18:01 by Juana Matthews PEDIATRIC ASSISTANT Attestations Medical Necessity Statement*: Admitting greater than 2 midnights expected due to left ankle and foot wounds with podiatry consultation and surgical interventions, cellulitis consultation, and complex medical management. Coding Level of Care Code 15279 Diagnoses Pressure ulcer of left heel, unstageable L89.620 Cellulitis L03.90 Diabetes E11.9 Non-healing ulcer of foot, unspecified laterality, unspecified ulcer stage L97.509 Laterality: unspecified laterality Non-pressure ulcer stage: unspecified non-pressure ulcer stage Anxiety F41.9 Atrial fibrillation I48.91 Self-catheterizes urinary bladder Z78.9 Paraplegia G82.20 Exposed orthopaedic hardware T84.498A Type 2 diabetes mellitus with foot ulcer E11.621; L97.509 Chronic pain G89.29
[2025-07-12 11:15] VITALS: BP 105/57; PULSE 70; RESP 18; TEMP 36.6; O2SAT 97
--- NOTE | 2025-07-12 11:23 | P.PN_ITS ---
Subjective 2 Subjective: Infectious disease progress note patient is now s/p I& D of the left foot and removal of hardware from right ankle. intra op findings included Necrotic changes surrounding first metatarsal phalangeal joint with necrosis down to level of bone. Osteomyelitis of first metatarsal extending to the mid diaphysis. Medications: Reviewed: Yes Vitals/I&O/Wt Last Vital Signs Temp 98.2 F 07/12/25 07:41 Pulse 71 07/12/25 07:41 Resp 18 07/12/25 07:41 BP 115/55 07/12/25 07:41 Pulse Ox 95 07/12/25 07:41 O2 Del Method Room Air 07/12/25 07:41 07/11/25 07/12/25 07/12/25 22:59 06:59 14:59 Intake Total 240 / 364.5 200 / 564.5 570 / 570 Output Total 950 / 950 Balance -710 / -585.5 200 / -385.5 570 / 570 Weight last 48 hrs Weight 59.421 kg Weight 59.421 kg Physical Exam 2 Urinary Catheter Management: Shine: Cath Placed During This Visit: yes Reason for Continuing Indwelling Catheter: Acute Urinary Retention or Obstruction Urinary Catheter Date of Insertion: 07/09/25 Urinary Catheter Time of Insertion: 17:24 Data 07/12/25 04:07 07/12/25 04:07 Micro: Microbiology 07/09/25 17:45 Urine Culture - Final Urine,Clean Catch Other data: NAME: Kobe Gardner LOC: [facility] U #: [id number] AGE/SX: 75/M ROOM: R E07/09/[address]: Kody Betancourt(A : 1950 BED: D IS: FAX #: STATUS: DEP AMB TLOC: Spec #: [id number] Sue: 07/09/25 Status: RES Req #: [id number] Recd: 07/09/25-[address]: Kody Betancourt([facility]) Src: Foot SpDesc: Wound Ordered: Tissue Cult GS Procedure Result Verified Site Gram Stain Final 07/10/25-1322 Result FEW GRAM NEGATIVE RODS FEW GRAM POSITIVE COCCI IN PAIRS Tissue Culture Preliminary 07/11/25-1045 Organism 1 Coag positive Staphylococcus Growth HEAVY Organism 2 Gram Negative Rods Growth HEAVY Organism 3 Gram Negative Rods#2 Growth MODERATE HEAVY MIXED SUPERFICIAL QIANA ON DAY 2 RESULTS TO FOLLOW Tissue Culture Preliminary (changed) 07/10/25-1430 MODERATE MIXED SUPERFICIAL QIANA PRESENT ON DAY 1 A&P Assessment and plan 1. Chronic osteomyelitis of other site with draining sinus: 2. Hardware complicating wound infection: 3. Cellulitis: 4. Type 2 diabetes mellitus with foot ulcer: Plan: 75 year old male with PMH paraplegia with chronic LE wounds which have been waxing and waning during course of the past year, now worsening to the point of bone fragments being expressed from the left side and exposed hardware on the right side. On exam today, patient's left Ankle and foot is noted to be erythematous and swollen raising concern for cellulitis. Bone exposure in wound clinically suggestive of osteomyelitis Blood cx taken and pending Outpatient cx taken at wound care [facility] recently have revealed Pseudomonas aeruginosa and MSSA start zosyn empirically at this time given cellulitis,low grade fever, elevated CRP pending mri of the foot Patient planned for possible surgical intervention based on MR findings will continue to follow further orders dependent on results of imaging and surgical plan 07/11/25: Patient now s/p Necrotic changes surrounding first metatarsal phalangeal joint with necrosis down to level of bone. Osteomyelitis of first metatarsal extending to the mid diaphysis.left side bone cx and rigth hardware cx sent to [place]. Outpatient wound care cx with GNR and coag positive staphylococcus thus far pending further identification and susceptibility. Blood cx negtaive to date. Continue iv zosyn. Patient is planned to be transferred to [facility] today for obstrcutive left hydronephrosis for urology intervention. Recommend to establish inaptient infectious disease consultation At [facility] for continued ID care. PDMP PDMP Reviewed: Not Reviewed Attestations 2 Medical Necessity Statement*: per admitting Coding Level of Care Code Acute Code for g Fwd Diagnoses Chronic osteomyelitis of other site with draining sinus M86.48 Osteomyelitis location: other site Osteomyelitis type: chronic, with draining sinus Hardware complicating wound infection T84.7XXA Cellulitis L03.90 Type 2 diabetes mellitus with foot ulcer E11.621; L97.509
--- NOTE | 2025-07-12 11:27 | P.PN_ITS ---
Subjective 2 Subjective: Patient seen at bedside this morning. Resting comfortably. No overnight events. Vitals/I&O/Wt Last Vital Signs Temp 98.2 F 07/12/25 07:41 Pulse 71 07/12/25 07:41 Resp 18 07/12/25 07:41 BP 115/55 07/12/25 07:41 Pulse Ox 95 07/12/25 07:41 O2 Del Method Room Air 07/12/25 07:41 07/11/25 07/12/25 07/12/25 22:59 06:59 14:59 Intake Total 240 / 364.5 200 / 564.5 570 / 570 Output Total 950 / 950 Balance -710 / -585.5 200 / -385.5 570 / 570 Weight last 48 hrs Weight 131 lb Weight 131 lb Physical Exam 2 Narrative: BELOW IS A FOCUSED LOWER EXTREMITY EXAM GENERAL: A&O x 3 VASCULAR: DP/PT pulses diminished, monophasic DERMATOLOGICAL: Left lower extremity surgical dressing clean, dry, intact. MUSCULOSKELETAL: Paraplegia NEUROLOGICAL: Neurological sensation to the affected foot and ankle is absent secondary to paraplegia Urinary Catheter Management: Shine: Cath Placed During This Visit: yes Reason for Continuing Indwelling Catheter: Acute Urinary Retention or Obstruction Urinary Catheter Date of Insertion: 07/09/25 Urinary Catheter Time of Insertion: 17:24 Data 07/12/25 04:07 07/12/25 04:07 Micro: Microbiology 07/09/25 17:45 Urine Culture - Final Urine,Clean Catch A&P Assessment and plan 1. Type 2 diabetes mellitus with foot ulcer: 2. Cellulitis: 3. Osteomyelitis: Plan: - Multiple wounds left foot concern for osteomyelitis -Labs and vitals reviewed -WBC 11.25 -ESR 71 -CRP 124 -VSS -Cultures bone cultures from wound care taken 07/09/2025 showing gram-negative rods and positive cocci in pairs as preliminary. Intraoperative cultures pending. -Abx per ID recommendations -Diet: Okay for diet -No plan for surgical intervention from podiatry standpoint until vascularly optimized. Status post incision bone cortex left foot for source control date of surgery 07/11/2025 - If patient is transferred to outside facility. Patient will need daily saline wet-to-dry dressing changes performed to left foot wounds -Given monophasic pulses to the left lower extremity and nature of wounds concern is for patient potential to heal any debridement performed. I believe the patient would benefit from angiogram/revascularization if possible during the inpatient setting, if not we will have to be referred to cardiology in a timely manner for outpatient evaluation and revascularization. -Pain Mgmt: Per primary team -Dressings: Saline wet-to-dry -Continue current Abx therapy until ID and Sensitivity results -Trend labs -Discharge plan: To be determined -Podiatry will continue to round on patient daily and provide recommendations PDMP PDMP Reviewed: Not Reviewed Attestations 2 Medical Necessity Statement*: See hospitalist note Coding Level of Care Code Acute Code for Chg Fwd Diagnoses Type 2 diabetes mellitus with foot ulcer E11.621; L97.509 Cellulitis L03.90 Osteomyelitis M86.9
[2025-07-12] MEDS: HYDROcodone-acetaminophen 5-325 mg Tablet 1 TAB PO (13:50)
[2025-07-12 16:07] VITALS: BP 106/71; PULSE 67; RESP 17; TEMP 36.8; O2SAT 92
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
--- NOTE | 2025-07-12 19:30 | PC.NURSE ---
Report called to SHIRLEY Garcia at [facility]. All questions were answered. Imaging uploaded via cloud. Patient transferred via EMS stretcher at 1755.
[2025-07-12 19:34] VITALS: BP 106/71; PULSE 17; RESP 67; TEMP 36.8; O2SAT 92
== END 2025-07-12 17:55 | disposition home or self-care (01) | DRG 629 ==
PROVIDERS: Podiatrist Foot & Ankle Surgery; Admitting Provider Student in an Organized Health Care Education/Training Program; PCP Family Medicine; Visit Provider Registered Nurse
PROC: 0QBP0ZZ Excision of Left Metatarsal, Open Approach (ICD-10-PCS; principal; 2025-07-11 12:00)
PROC: 0QBP0ZZ Excision of Left Metatarsal, Open Approach (ICD-10-PCS; 2025-07-11 12:00)
DX: E11.621 Type 2 diabetes mellitus with foot ulcer (principal); E11.52 Type 2 diabetes mellitus with diabetic peripheral angiopathy with gangrene; G82.20 Paraplegia, unspecified; L03.116 Cellulitis of left lower limb; M86.60 Other chronic osteomyelitis, unspecified site; N13.6 Pyonephrosis; I48.91 Unspecified atrial fibrillation; Z79.01 Long term (current) use of anticoagulants; F41.9 Anxiety disorder, unspecified; I25.10 Atherosclerotic heart disease of native coronary artery without angina pectoris; E78.5 Hyperlipidemia, unspecified; E11.40 Type 2 diabetes mellitus with diabetic neuropathy, unspecified; Z95.1 Presence of aortocoronary bypass graft; I10 Essential (primary) hypertension; Z79.84 Long term (current) use of oral hypoglycemic drugs; L89.620 Pressure ulcer of left heel, unstageable; R25.2 Cramp and spasm; S91.001A Unspecified open wound, right ankle, initial encounter; Z95.5 Presence of coronary angioplasty implant and graft; K21.9 Gastro-esophageal reflux disease without esophagitis; L97.524 Non-pressure chronic ulcer of other part of left foot with necrosis of bone; B96.89 Other specified bacterial agents as the cause of diseases classified elsewhere; E11.69 Type 2 diabetes mellitus with other specified complication
CPT/HCPCS: 11044; 36415; 36416; 36573; 51702; 71045; 75635; 80048; 80053; 81001; 82962; 83036; 83735; 85025; 85651; 86140; 87040; 87070; 87075; 87077; 87086; 87176; 87186; 87205; 93005; 93922; 93926; 96372; 97597; 97598; 99215; A6212; J1650; J1815; J2543; J2704; J3010; J7030; J9999

== ENCOUNTER 2025-07-21 14:03 | Outpatient (CLI) | payer MEDICARE, SELFPAY ==
[2025-07-21 14:17] LABS: Hematocrit 33.4 % (37-53); Hemoglobin 9.70 g/dL (11.27-16.99); Mean Corpuscular HGB Conc 29.0 g/dL (30-55); Mean Corpuscular Hemoglobin 22.4 pg (27-33); Mean Corpuscular Volume 77.1 fl (82-101); Nucleated Red Blood Cells % 0 %; Platelet Count 355 10^3/cmm (157-399); Red Blood Count 4.33 10^6/uL (3.85-5.65); White Blood Count 8.30 10^3/uL (3.29-11.43)
[2025-07-21 14:40] LABS: Alanine Aminotransferase 11 U/L (0-41); Albumin Level 3.5 g/dL (3.5-5.2); Alkaline Phosphatase 65 U/L (40-130); Anion Gap 14.2 (5-19); Aspartate Amino Transferase 17 U/L (0-40); Blood Urea Nitrogen 11 mg/dL (8-23); Calcium 8.9 mg/dL (8.5-10.5); Carbon Dioxide 28 mmol/L (22-29); Chloride 98 mmol/L (98-107); Globulin 2.7 g/dL (1.3-4.6); Glucose 200 mg/dL (65-115); Osmolality Calculated 287 mOsm/kg (285-295); Potassium 4.2 mmol/L (3.5-5.1); Sodium 136 mmol/L (136-145); Total Protein 6.2 g/dL (6.6-8.7)
== END 2025-07-21 14:04 | disposition home or self-care (01) ==
LOC: LAB 14:05
PROVIDERS: PCP Family Medicine; Visit Provider Internal Medicine Infectious Disease
DX: L03.90 Cellulitis, unspecified (principal); G89.29 Other chronic pain; E11.42 Type 2 diabetes mellitus with diabetic polyneuropathy
CPT/HCPCS: 80053; 82550; 85025; 86140

== ENCOUNTER 2025-07-28 13:43 | Outpatient (CLI) | payer MEDICARE, SELFPAY ==
[2025-07-28 14:10] LABS: Hematocrit 35.0 % (37-53); Hemoglobin 10.20 g/dL (11.27-16.99); Mean Corpuscular HGB Conc 29.1 g/dL (30-55); Mean Corpuscular Hemoglobin 23.1 pg (27-33); Mean Corpuscular Volume 79.2 fl (82-101); Nucleated Red Blood Cells % 0 %; Platelet Count 285 10^3/cmm (157-399); Red Blood Count 4.42 10^6/uL (3.85-5.65); White Blood Count 9.30 10^3/uL (3.29-11.43)
[2025-07-28 15:48] LABS: Alanine Aminotransferase 13 U/L (0-41); Albumin Level 3.6 g/dL (3.5-5.2); Alkaline Phosphatase 74 U/L (40-130); Anion Gap 16.8 (5-19); Aspartate Amino Transferase 24 U/L (0-40); Blood Urea Nitrogen 11 mg/dL (8-23); Calcium 9.1 mg/dL (8.5-10.5); Carbon Dioxide 26 mmol/L (22-29); Chloride 100 mmol/L (98-107); Globulin 2.8 g/dL (1.3-4.6); Glucose 173 mg/dL (65-115); Osmolality Calculated 292 mOsm/kg (285-295); Potassium 3.8 mmol/L (3.5-5.1); Sodium 139 mmol/L (136-145); Total Protein 6.4 g/dL (6.6-8.7)
== END 2025-07-28 13:44 | disposition home or self-care (01) ==
PROVIDERS: PCP Family Medicine; Visit Provider Internal Medicine Infectious Disease
DX: L89.513 Pressure ulcer of right ankle, stage 3 (principal)
CPT/HCPCS: 80053; 82550; 85025; 86140